=== PATIENT | female | born 1935 | race African-American/Black ===

== ENCOUNTER 2017-01-16 10:14 | Inpatient (IN) ==
[2017-01-16] MEDS ORDERED: NITROGLYCERIN 2% OINT 1 INCH/GM PACK TOP STA (10:39)
[2017-01-16] MEDS ORDERED: ASPIRIN 325 MG TABLET PO STA (10:39)
[2017-01-16] MEDS ORDERED: hydrALAZINE 20 MG/1 ML VIAL IV STA (10:39)
--- NOTE | 2017-01-16 10:43 | EKG Report ---
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
--- NOTE | 2017-01-16 10:51 | Emergency Department Note ---
Arrival - Arrival Chief Complaint: Chest Pain Stated Complaint: Chest pains ED Nursing Triage Note: C/O HAVING CHEST PAIN SINCE LAST EVENING,STATES THE PAIN IS NON-RADIATING., DENIES HAVING SOB., + NAUSEA., Mode of Arrival: Wheelchair Limitations: No Limitations Source: Patient Time Seen by Provider: 01/16/17 10:39 - History of Present Illness HPI Narrative: This 81-year-old black female chronic peritoneal dialysis patient presents with 18 hours of lower mechanical chest wall pain as well as midepigastric pain associated with heartburn, belching, and indigestion. The patient denies any shortness of breath, nausea, vomiting, or diaphoresis. The patient appears lethargic during the interview with most of the history provided by the family. The family states she has never had a stroke but has been in a general decline for the last 2 months with frequent falling and in the last week a significant acceleration in decline with 3 falls in the last week and significant drop off in ambulation and communication. The patient, although ataxic and given the falls, has not complained of any headaches, visual changes , slurring of speech, or focal deficits. Currently the patient appears in no acute medical distress. Onset (ago): hour(s) (Patient presents 18 hours post onset of pain) Allergies/Adverse Reactions: Allergies Allergy/AdvReac Type Severity Reaction Status Date / Time hydrocodone [From Lortab] AdvReac Intermediate Confusion Verified 01/16/17 10:32 codeine AdvReac Nausea Verified 01/16/17 10:32 Home Medications: Home Medications Medication Instructions Recorded Confirmed Type Allopurinol 300 mg PO DAILY 05/03/15 01/16/17 History Aspirin [Adult Low Dose Aspirin EC] 81 mg PO DAILY 05/03/15 01/16/17 History Calcium (Carb)/Vit D 600-400 1 tablet PO DAILY 05/03/15 01/16/17 History [Caltrate 600 + D] Estradiol Tab [Estrace Tab] 1 mg PO MOWEFR 05/03/15 01/16/17 History Pravastatin [Pravachol] 40 mg PO DAILY 05/03/15 01/16/17 History Brimonidine 0.15% Oph Soln 1 drops BOTH EYES BID 05/17/15 01/16/17 History [Alphagan P 0.15% Oph Soln] NIFEdipine XL TAB [Procardia Xl] 90 mg PO BEDTIME #30 tablet 05/23/15 01/16/17 Rx Omeprazole [Omeprazole] 40 mg PO BID 12/30/16 01/16/17 History cloNIDine HCl [Clonidine HCl] 0.5 mg PO BID 12/30/16 01/16/17 History hydrALAZINE TAB [Apresoline Tab] 100 mg PO BID 12/30/16 01/16/17 History Ferrous Fumarate [Ferrimin 150] 456 mg PO DAILY 01/16/17 01/16/17 History Ketorolac Tromethamine [Ketorolac 1 drop LEFT EYE TID 01/16/17 01/16/17 History 0.4% Oph Soln] Review of System - Review of System 12 point system: reviewed and no additional remarkable complaints except as stated - Review of System Constitutional: Present: as per HPI Respiratory: Present: as per HPI Cardiovascular: Present: as per HPI Gastrointestinal: Present: as per HPI Neurological: Present: as per HPI Medical,Surgical,& Family Hx - Medical History Cardio: History of: Hypertension Neurology: History of: Cerebrovascular Accident, Cerebral Palsy HEENT: History of: Glaucoma Endocrine: History of: Diabetes Mellitus (NIDDM) Rheumatology: History of;: Gout Renal: History of: Renal Failure Gastrointestinal: History of: Gastrointestinal Bleed Hematology: No history of: Blood Transfusion Reaction Other: No history of: Anesthesia Reactions - Surgical History Cardiac Surgeries: Sugical HX of: Carotid Endarterectomy HEENT Surgeries: Surgical HX of: Carotid Endarterectomy Abdominal Surgeries: Surgical HX of: Cholecystectomy Reproductive Surgeries: Surgical HX of;: Hysterectomy - Family History Family History: Reports;: Family Heart Disease (in brothers and sisters.), Family Hypertension (multiple family members.), Family Stroke (mother of complications of strokes.) - Social History Smoking Status: Never smoker Frequency of Alcohol Use: None Type of Drug Use: None Exam Physical Examination: GENERAL: Well developed, well nourished elderly black female in no acute distress. HEENT: Normocephalic. No trauma. Moist mucous membranes. EOMI. PERRLA. ENT NML NECK: Supple. No adenopathy. CARDIAC: Regular. 1/4 abdoulaye, loud p2 CHEST: Clear to auscultation. No respiratory distress. O2 sat 100%. Very tender lower sternum to palpation. ABDOMEN: Soft. Very tender mid epigastrium. Active bowel sounds. Peritoneal dialysis catheter access left lower quadrant appears clean and uninflamed EXTREMITIES: No trauma. Normal ROM. No pedal edema. SKIN: No diaphoresis. No rash. NEURO: Alert. Oriented to person and place not so well time. Motor, sensory, vibratory intact. No focal deficits. Vital Signs: Vital Signs Temperature 96.7 F L 01/16/17 10:27 Pulse Rate 70 01/16/17 10:27 Respiratory Rate 16 01/16/17 10:27 Blood Pressure 197/114 01/16/17 10:27 O2 Sat by Pulse Oximetry 100 01/16/17 10:27 Course - Reevaluation(s) Reevaluation #1: Discussed with family the need for further evaluation necessitating hospitalization. - Consultations Consultation #1: Discussed with the hospitalist service who will admit for further evaluation and treatment. Results - Labs CBC & BMP: 01/16/17 11:18 01/16/17 11:18 Labs: I have reviewed the lab and noted the expected findings for renal failure as well as mild hyperkalemia and a bump in troponins. N - Impressions EKG sinus rhythm with occasional PAC at rate of 68. Normal LA interval and QRS duration. Left ventricular hypertrophy noted with nonspecific ST changes without peak T's. No acute injury pattern noted. - Diagnostic Findings Procedure: Chest x-ray: image reviewed by me, report reviewed by me ( Cardiomegaly otherwise negative chest), CT: image reviewed by me, report reviewed by me (Head: Chronic cortical loss left parietal lobe, cerebral atrophy diffuse, no acute injury.) Disposition Clinical Impression: Chest pain/abnormal enzymes, Dialysis dependent renal failure, Reflux, Costochondritis Case discussed with: patient, patient's family Disposition: Still a Patient Condition: Guarded Time of Disposition: 12:24
[2017-01-16] MEDS ORDERED: KETOROLAC 30 MG/1 ML VIAL IV STA (10:55)
[2017-01-16] MEDS ORDERED: methylPREDNISolone SOD SUC 125 MG/2 ML VIAL IV STA (10:55)
[2017-01-16] MEDS ORDERED: METOCLOPRAMIDE 10 MG TABLET PO STA (10:55)
[2017-01-16] MEDS ORDERED: PANTOPRAZOLE 40 MG TABLET PO STA (10:55)
[2017-01-16] MEDS ORDERED: METOCLOPRAMIDE 10 MG TABLET ONE (11:12)
[2017-01-16] MEDS ORDERED: KETOROLAC 30 MG/1 ML VIAL ONE (11:12)
[2017-01-16] MEDS ORDERED: NITROGLYCERIN 2% OINT 1 INCH/GM PACK TOP ONE (11:12)
[2017-01-16] MEDS ORDERED: PANTOPRAZOLE 40 MG TABLET PO ONE (11:12)
[2017-01-16] MEDS ORDERED: hydrALAZINE 20 MG/1 ML VIAL ONE (11:12)
[2017-01-16] MEDS ORDERED: ASPIRIN 325 MG TABLET ONE (11:12)
[2017-01-16] MEDS ORDERED: methylPREDNISolone SOD SUC 125 MG/2 ML VIAL ONE (11:13)
[2017-01-16] MEDS ORDERED: ONDANSETRON 4 MG/2 ML VIAL IV STA (11:29)
--- NOTE | 2017-01-16 11:29 | CT Report ---
History is altered mental status altered LOC and frequent falls Comparison 03/01/2015 There is diffuse atrophy. There is a moderate-sized. Chronic cortical loss in the left parietal lobe. Mild patchy white matter low densities again seen No acute intracranial hemorrhage or mass effects seen No acute cortical stroke identified Impression: Chronic changes similar on the prior study The CT exam was performed using one or more of the following dose reduction techniques: Automated exposure control, adjustment of the mA and/or kV according to patient size, or use of iterative reconstruction technique. PROCEDURE INTERPRETED AT [facility] DEPARTMENT OF RADIOLOGY Final Report Signed by: Dr. Ruth Valencia
[2017-01-16 11:30] LABS: Basophils % 0.2 % (0.0-0.8); Eosinophils # 0.1 10*3/uL (0.0-0.87); Hematocrit 40.9 VOL% (35.7-47.0); Hemoglobin 13.9 GM/DL (12.0-16.0); Immature Granulocytes % 0.3 %; Immature Granulocytes Absolute 0.03 #; Lymphocytes # 2.7 10*3/uL (1.4-4.0); Lymphocytes % 23.8 % (21.3-54.2); Mean Corpuscular Hemoglobin 33 PG (27-34); Mean Corpuscular Volume 98.1 FL (87-102); Mean Platelet Volume 12.3 FL (9.6-12.0); Monocytes # 0.7 10*3/uL (0.11-0.8); Monocytes % 5.7 % (1.7-12.7); NRBC # 0.03 10*3/uL; Neutrophils # 7.9 10*3/uL (1.4-7.4); Platelet Count 217 T/CUMM (130-400); Red Blood Count 4.17 MC/CUMM (3.8-5.5); Red Cell Distribution Width 14.5 % (9.3-17.3); White Blood Count 11.5 T/CUMM (4-12)
[2017-01-16] MEDS ORDERED: ONDANSETRON 4 MG/2 ML VIAL ONE (11:31)
--- NOTE | 2017-01-16 11:32 | XRay Report ---
History is chest pain Comparison 05/16/2015 The heart is mildly enlarged There is mild elevation or eventration left diaphragm. Prior pulmonary edema has resolved in the interval. No congestive failure or confluent infiltrates seen on today's study Impression: Mild cardiomegaly without CHF PROCEDURE INTERPRETED AT [facility] DEPARTMENT OF RADIOLOGY Final Report Signed by: Dr. Ruth Valencia
[2017-01-16 11:50] LABS: Alanine Aminotransferase 32 U/L (13-56); Alkaline Phosphatase 103 U/L (45-117); Aspartate Amino Transferase 48 U/L (0-37); Blood Urea Nitrogen 21 MG/DL (7-18); Calcium 10.1 MG/DL (8.5-10.1); Glucose 160 MG/DL (74-106); Osmolality,Calculated 280.7 MOS/KG (273-304); Potassium 5.7 MMOL/L (3.5-5.1); Sodium 138 MMOL/L (136-145); Total Protein 7.1 G/DL (6.4-8.3); Troponin I Only 0.837 NG/ML (0.00-0.045)
[2017-01-16 12:16] LABS: PT Patient Result 10.2 SECS; Partial Thromboplastin Time 25.9 SECS (0-40)
[2017-01-16 12:27] LABS: Apearance,Urine CLEAR (Clear); Bilirubin,Urine Negative (Negative); Blood, Urine Negative (Negative); Glucose,Urine (UA) Negative (Negative); Ketones,Urine Negative (Negative); Nitrite,Urine Negative (Negative); Protein,Urine 100 MG/DL; RBC,Urine <1 /HPF (0-4); Squamous Epithelial Cell,Urine Occasional /HPF (0-10); Urine Color Straw (Yellow); Urine Specific Gravity 1.005 (1.001-1.035); Urine Urobilinogen < 2.0 EU/DL (0.2-1.0); WBC,Urine 1 /HPF (0-6)
--- NOTE | 2017-01-16 14:07 | Hospitalist History & Physical ---
<Vinh Rahman - Last Filed: 01/16/17 14:48> Assessment and Plan - Time spent with patient Time spent with patient: Greater than 30 minutes (1) Elevated troponin Status: Acute Current Visit: Yes (2) Acute on chronic renal failure Status: Acute Current Visit: No (3) Chest pain Status: Acute Current Visit: No (4) HTN (hypertension) Status: Chronic Current Visit: No (5) Diabetes mellitus Status: Acute Current Visit: Yes History of Present Illness Chief complaint: chest pain History of present illness: Ms. Sommer is a 81 year old Mattie female with a past medical history significant for CVA, hypertension, hyperlipidemia, diabetes mellitus, chronic kidney disease on peritoneal dialysis who presents to the ED today with complaints of chest pain with onset last night. The patient appeared uncomfortable, acutely ill, and moaned in agony. Patient's daughter was at bedside and gave most of the history. Apparently, the patient began experiencing chest pain late last night with associated nausea, vomiting, diarrhea with decreased appetite. When questioning the patient about her pain, she points to her substernal area and notes that the pain has not yet subsided. The patient remains nauseous and is spitting up bile and clear secretions. Patient's daughter notes that the patient recently started complaining of back pain. Patient denies headache, changes in vision, palpitations, syncopal episodes, edema, numbness or tingling. She does however voice chest pain and shortness of breath. Laboratory work on admission is significant for WBCs 11.5 , sodium 138, potassium 5.7, BUN 21, creatinine 5.1. Troponin 0.863. Urinalysis is negative for infection. Case been discussed with both Dr. Antony , ED physician, and Dr. Siddiqui, admitting physician and the patient will be admitted for observation and further treatment. Patient is a full code. Home meds have been reviewed. Home Medications Medication Instructions Recorded Confirmed Type Allopurinol 300 mg PO DAILY 05/03/15 01/16/17 History Aspirin [Adult Low Dose Aspirin EC] 81 mg PO DAILY 05/03/15 01/16/17 History Calcium (Carb)/Vit D 600-400 1 tablet PO DAILY 05/03/15 01/16/17 History [Caltrate 600 + D] Estradiol Tab [Estrace Tab] 1 mg PO MOWEFR 05/03/15 01/16/17 History Pravastatin [Pravachol] 40 mg PO DAILY 05/03/15 01/16/17 History Brimonidine 0.15% Oph Soln 1 drops BOTH EYES BID 05/17/15 01/16/17 History [Alphagan P 0.15% Oph Soln] NIFEdipine XL TAB [Procardia Xl] 90 mg PO BEDTIME #30 tablet 05/23/15 01/16/17 Rx Omeprazole [Omeprazole] 40 mg PO BID 12/30/16 01/16/17 History cloNIDine HCl [Clonidine HCl] 0.5 mg PO BID 12/30/16 01/16/17 History hydrALAZINE TAB [Apresoline Tab] 100 mg PO BID 12/30/16 01/16/17 History Ferrous Fumarate [Ferrimin 150] 456 mg PO DAILY 01/16/17 01/16/17 History Ketorolac Tromethamine [Ketorolac 1 drop LEFT EYE TID 01/16/17 01/16/17 History 0.4% Oph Soln] Prorenal D 1 tablet PO DAILY 01/16/17 01/16/17 History Allergies Allergy/AdvReac Type Severity Reaction Status Date / Time hydrocodone [From Lortab] AdvReac Intermediate Confusion Verified 01/16/17 10:32 codeine AdvReac Nausea Verified 01/16/17 10:32 Medical,Surgical,& Family Hx - Medical History Cardio: History of: Hypertension Neurology: History of: Cerebrovascular Accident, Cerebral Palsy HEENT: History of: Glaucoma Endocrine: History of: Diabetes Mellitus (NIDDM) Rheumatology: History of;: Gout Renal: History of: Renal Failure Gastrointestinal: History of: Gastrointestinal Bleed Hematology: No history of: Blood Transfusion Reaction Other: No history of: Anesthesia Reactions - Surgical History Cardiac Surgeries: Sugical HX of: Carotid Endarterectomy HEENT Surgeries: Surgical HX of: Carotid Endarterectomy Abdominal Surgeries: Surgical HX of: Cholecystectomy Reproductive Surgeries: Surgical HX of;: Hysterectomy - Family History Family History: Reports;: Family Heart Disease (in brothers and sisters.), Family Hypertension (multiple family members.), Family Stroke (mother of complications of strokes.) - Social History Smoking Status: Never smoker Frequency of Alcohol Use: None Type of Drug Use: None Marital Status: Lives With:: Spouse Functional capacity: uses cane/walker - Constitutional Constitutional: Present: weakness. Absent: chills, frequent falls, headache(s) - EENT Eyes: Present: loss of vision. Absent: blurry vision Ears: Absent: decreased hearing, ear pain Nose, mouth and throat: Absent: headache(s), sore throat, vertigo - Cardiovascular Cardiovascular: Present: chest pain at rest, dyspnea. Absent: diaphoresis, edema - Respiratory Respiratory: Present: dyspnea. Absent: cough - Gastrointestinal Gastrointestinal: Present: abdominal pain, nausea, vomiting. Absent: change in bowel habits - Genitourinary Genitourinary: Absent: difficulty urinating, dysuria, hematuria - Musculoskeletal Musculoskeletal: Present: back pain, muscle weakness - Neurological Neurological: Absent: confusion, numbness, syncope - Psychiatric Psychiatric: Absent: anxiety, depression - Endocrine Endocrine: Absent: cold intolerance, heat intolerance - Hematologic/Lymphatic Hematologic/Lymphatic: Absent: easy bleeding, easy bruising Exam - Constitutional Vitals: Period Temp Pulse Resp BP Sys/Sung Pulse Ox Last 24 Hr 96.7 F-96.7 F 55-70 16-20 163-207/83-114 100-100 Exam: General appearance: normal weight, ill-appearing, moderate distress - Head Head exam: Present: normocephalic, atraumatic - Eye Eye exam: Present: EOMI. Absent: conjunctival injection, nystagmus Pupils: Present: RAY, normal accommodation - ENT ENT exam: Present: normal exam, normal external ear exam - Neck Neck exam: Present: normal inspection. Absent: lymphadenopathy, tenderness, thyromegaly - Respiratory Respiratory exam: Present: clear to auscultation bilaterally. Absent: rales, rhonchi, wheezes - Cardiovascular Cardiovascular exam: Present: regular rate and rhythm. Absent: carotid bruit, gallop, rubs - GI/Abdominal GI/Abdominal exam: Present: normal bowel sounds. Absent: ascites, distended, mass - Extremities Exam Extremities exam: Present: normal inspection, normal capillary refill. Absent: edema - Back Exam Back exam: Absent: CVA tenderness (L), CVA tenderness (R) - Neurological Exam Neurological exam: Present: alert, cranial nerves II through XII intact - Psychiatric Psychiatric exam: present: normal affect, normal mood - Skin Skin exam: Present: normal color, warm, dry Results - Labs CBC & BMP: 01/16/17 11:18 01/16/17 11:18 Lab Results: I have reviewed the past 24 hour labs - Diagnostic Findings Procedure: Chest x-ray: image reviewed by me, report reviewed by me <Tawnya Siddiqui - Last Filed: 01/16/17 15:57> History of Present Illness Chief complaint: chest pain started last night History of present illness: Ms. Sommer is a 81 year old female with a history of ESRD on PD, stroke, and GERD who presented to the hospital with a chief complaint of chest pain that started last night. She did not tell anyone in her family that this was going on. This morning she said the chest pain woke her from sleep and she notified her at approximately 7 AM. She describes the pain is midsternal chest pain moderate to severe in nature without any radiation. It was not associated with shortness of breath that was associated with 3-4 episodes of nausea and vomiting. She denied any palpitations, diaphoresis, lightheadedness or dizziness. She reported that the chest pain did get worse with taking a deep breath and is reproducible on exam. Patient states that lying on her back makes the pain better. Patient took Prilosec this morning and she did not notice any improvement in her pain. brought her to the emergency room for further evaluation and treatment. Patient states that after receiving the nitro paste her symptoms have resolved. According to the daughter, patient has had increasing falls and progressive weakness over the last 3 months but she has noticed over the last 3 weeks it is gotten worse. She has had multiple falls. Reportedly she also had some low potassium this week and they notified her primary care doctor who recommended 3 days of oral supplementation. On review of systems, she has chronic constipation but has had loose stools recently. No recent antibiotics. She is recently been started on MiraLAX. A 10 point review of systems was reviewed and was otherwise unremarkable. Past medical history: Eczema, end-stage renal disease on peritoneal dialysis, GERD, constipation, diabetes mellitus, hypertension, stroke, allergic rhinitis, dyslipidemia Past surgical history: Right CEA, cholecystectomy, total abdominal hysterectomy with bilateral salpingo-oophorectomy Meds: Reviewed Allergies: Codeine and Lortab causes confusion and nausea Family history: Brother had prostate cancer, sister had colon cancer, diabetes also runs in the family Social history: Denies any tobacco, alcohol, illicit drug use. She is . Full code. She has [facility]. Vitals were reviewed. General :patient is awake alert and oriented to person lying in the hospital bed in no acute distress. She is chronically ill-appearing HEENT: Pupils are equal and reactive to light. extraocular muscles are intact. Conjunctive are pale. Mucous membranes are slightly dry. Nares are patent no discharge or epistaxis noted. Oropharynx shows white coating on the tongue that does not scrape. Neck: supple. No lymphadenopathy or thyromegaly appreciated. No JVD. Cardiac: Regular rate and rhythm normal S1-S2 with a 1/6 systolic murmur heard best along right sternal border. No rubs or gallop. Chest wall: Tender to palpation. No overlying rashes or ecchymoses Lungs: Clear to auscultation bilaterally with good aeration nonlabored breathing noted Abdomen: Soft nontender nondistended positive bowel sounds no organomegaly or masses appreciated. Peritoneal catheter noted Extremities: Warm and well-perfused. No clubbing cyanosis or edema. Labs and investigative studies were reviewed. Assessment and plan: #1. Atypical chest pain with elevated troponin and risk factors for possible coronary artery disease -Could be due to slow renal clearance of troponin in the face of recent falls or could be ACS. -We will place on the chest pain pathway for observation -Cardiac telemetry -Serial cardiac markers -TSH -Lipid panel -Echo -Consult cardiology #2. Oral candidiasis -Nystatin orally for at least 7-10 days #3. End-stage renal disease on peritoneal dialysis with peritoneal and hyperkalemia -Consult nephrology. Kayexalate 15g po x 1 now #4. Essential hypertension -Resume home meds that are clinically appropriate #5. Diabetes mellitus type 2 diet-controlled -Check hemoglobin A1c. Insulin sliding scale with Accu-Cheks before meals and at bedtime. Start her renal diabetic diet full liquid and advance as tolerated. #6. Nausea and vomiting may be related to ACS but could be related to gastroenteritis -Check KUB -Check lipase -Antiemetics as needed #7. history of stroke -Resume home meds DVT prophylaxis Discussed with patient, , daughter, PA, and nurse and all questions answered. Exam - Constitutional Vitals: Period Temp Pulse Resp BP Sys/Sung Pulse Ox Last 24 Hr 96.7 F-96.8 F 55-70 16-20 151-207/83-114 99-100 Results - Labs CBC & BMP: 01/16/17 11:18 01/16/17 11:18
[2017-01-16] MEDS ORDERED: GLUCAGON 1 MG VIAL IM PRN (15:42)
[2017-01-16] MEDS ORDERED: DEXTROSE 50% 25 GM/50 ML VIAL IV PRN (15:42)
[2017-01-16] MEDS ORDERED: POTASSIUM CHLORIDE 20 MEQ TABLET PO PRN (15:49)
[2017-01-16] MEDS ORDERED: ONDANSETRON 4 MG/2 ML VIAL IV PRN (15:49)
[2017-01-16] MEDS ORDERED: MAGNESIUM SULF RIDER 2 GM in PREMIX 1 EACH IV PRN (15:49)
[2017-01-16] MEDS ORDERED: MAGNESIUM HYDROXIDE SUSP 30 ML UDCUP PO PRN (15:49)
[2017-01-16] MEDS ORDERED: ZALEPLON 5 MG CAPSULE PO PRN (15:49)
[2017-01-16] MEDS ORDERED: SODIUM POLYSTYRENE SULFATE 15 GM/60 ML BOTTLE PO STA (15:56)
--- NOTE | 2017-01-16 16:23 | Nephrology Consult Note ---
History of Present Illness Chief complaint: Chest pain in a patient with end-stage renal disease History of present illness: Ms. Sommer is a 81 year old female with end-stage renal disease who performs peritoneal dialysis at home with a cycler. The patient was admitted to the hospital day when she presented with chest pain to the emergency room. The patient has also been having some weakness and decreased p.o. intake the past couple weeks per the patient's daughter and . The patient is unable to contribute much to the history due to her present medical illness. The patient is also been having diarrhea the past 24 hours and complains of some abdominal upset. The patient has fallen on 3 occasions in the past week or 2 per the daughter. The patient's states that the patient's PD fluid has been clear, he has not noted any cloudy fluid. He reports compliance with performing her peritoneal dialysis at home. He has been using 1.5% dextrose solutions. The patient has a history of diabetes however since starting dialysis she has not required any hypoglycemic therapy. The patient also has a history of hypertension and a few months ago was started on clonidine which was added to hydralazine and nifedipine that she is already taking. The patient has a history of bradycardia but apparently this improved when she was started on dialysis about a year and a half ago. ROS: Head - denies headaches ENT - denies sore throat Lymphatics - denies lymphadenopathy Hematology - denies bleeding problems Heart -positive chest pain Lungs - denies shortness of breath Abdomen -complains of stomach upset Musculoskeletal - denies arthritis Skin - denies rash Neurology - denies stroke General - denies fever PE: General: Chronically ill-appearing Eyes: Pupils are round and reactive, conjunctivae are clear ENT: Nose is clear, O/P is benign Neck: Supple, no thyromegaly Lymphatics: No cervical, supraclavicular or axillary adenopathy Heart: Regular rate and rhythm, no edema Lungs: Clear to auscultation anteriorly, chest expansion symmetric Abdomen: Soft, normoactive bowel sounds, no hepatomegaly, some mild tenderness to deep palpation Musculoskeletal: No joint erythema or effusions or joint asymmetry Skin: Normal turgor, normal hydration, no rash Neuro/Psych: Patient is drowsy but cooperative with poor insight, she was able to answer some review of system questions however was unable to expand much on her history of present illness due to her poor condition and overall weakness. Home Medications Medication Instructions Recorded Confirmed Type Allopurinol 300 mg PO DAILY 05/03/15 01/16/17 History Aspirin [Adult Low Dose Aspirin EC] 81 mg PO DAILY 05/03/15 01/16/17 History Calcium (Carb)/Vit D 600-400 1 tablet PO DAILY 05/03/15 01/16/17 History [Caltrate 600 + D] Estradiol Tab [Estrace Tab] 1 mg PO MOWEFR 05/03/15 01/16/17 History Pravastatin [Pravachol] 40 mg PO DAILY 05/03/15 01/16/17 History Brimonidine 0.15% Oph Soln 1 drops BOTH EYES BID 05/17/15 01/16/17 History [Alphagan P 0.15% Oph Soln] NIFEdipine XL TAB [Procardia Xl] 90 mg PO BEDTIME #30 tablet 05/23/15 01/16/17 Rx Omeprazole [Omeprazole] 40 mg PO BID 12/30/16 01/16/17 History cloNIDine HCl [Clonidine HCl] 0.5 mg PO BID 12/30/16 01/16/17 History hydrALAZINE TAB [Apresoline Tab] 100 mg PO BID 12/30/16 01/16/17 History Ferrous Fumarate [Ferrimin 150] 456 mg PO DAILY 01/16/17 01/16/17 History Ketorolac Tromethamine [Ketorolac 1 drop LEFT EYE TID 01/16/17 01/16/17 History 0.4% Oph Soln] Prorenal D 1 tablet PO DAILY 01/16/17 01/16/17 History Allergies Allergy/AdvReac Type Severity Reaction Status Date / Time hydrocodone [From Lortab] AdvReac Intermediate Confusion Verified 01/16/17 10:32 codeine AdvReac Nausea Verified 01/16/17 10:32 Medical,Surgical,& Family Hx - Medical History Cardio: History of: Cardiac Dysrhythmia, Hypertension Psychological: History of: Anxiety Disorders, Depression (refused lexapro) Neurology: History of: Cerebrovascular Accident, Cerebral Palsy HEENT: History of: Glaucoma Comment Only: Eye Problem (left eye surgery x 3 in mag[place]iel) Endocrine: History of: Diabetes Mellitus (NIDDM), Dyslipidemia Rheumatology: History of;: Gout Renal: History of: Dialysis (peritoneal dialysis every night), Renal Failure Gastrointestinal: History of: GERD, Gastrointestinal Bleed Hematology: No history of: Blood Transfusion Reaction Other: No history of: Anesthesia Reactions - Surgical History Cardiac Surgeries: Sugical HX of: Carotid Endarterectomy HEENT Surgeries: Surgical HX of: Carotid Endarterectomy Abdominal Surgeries: Surgical HX of: Appendectomy, Cholecystectomy, Colonoscopy , EGD Reproductive Surgeries: Surgical HX of;: Hysterectomy - Family History Family History: Reports;: Family Heart Disease (in brothers and sisters.), Family Hypertension (multiple family members.), Family Stroke (mother of complications of strokes.) - Social History Smoking Status: Never smoker Frequency of Alcohol Use: None Type of Drug Use: None Exam - Vital Signs Vital signs: Period Temp Pulse Resp BP Sys/Sung Pulse Ox Last 24 Hr 96.7 F-96.8 F 55-70 16-20 151-207/83-114 99-100 Results - Labs CBC & BMP: 01/16/17 11:18 01/16/17 11:18 Assessment and Plan (1) Debility Status: Acute Assessment and plan: This patient has been declining over the past couple of weeks per the patient's daughter. The patient has had about 3 falls in the past few weeks and has had decreasing interaction and mobility. Current Visit: Yes (2) Diarrhea Status: Acute Assessment and plan: Apparently last night the patient was repeatedly asking to get up to the bathroom and was having some loose stools that were dark in color (the patient takes iron at home). She had some abdominal soreness to palpation, I am going to get a PD fluid sample for cell count with differential Gram stain and C&S Current Visit: Yes (3) Diabetes mellitus Status: Acute Assessment and plan: Patient has not been requiring hypoglycemic therapy since starting dialysis he year and half ago Current Visit: Yes (4) Chest pain Status: Acute Current Visit: No (5) Hyperkalemia Status: Acute Assessment and plan: We will monitor Current Visit: No (6) Metabolic acidosis Status: Acute Current Visit: No (7) ESRD (end stage renal disease) Status: Chronic Assessment and plan: We will perform manual exchanges with 1.5% dextrose solutions 4 times a day Current Visit: No (8) HTN (hypertension) Status: Chronic Current Visit: No (9) Bradycardia Status: Resolved Assessment and plan: Patient has a history of bradycardia on 1 vital sign since admission her heart rate was around 56, the patient was started on a low dose of clonidine a couple months ago, she may do well to come off of this with her decreased interactivity and bradycardia Current Visit: No
--- NOTE | 2017-01-16 16:27 | EKG Report ---
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
[2017-01-16] MEDS: INSULIN LISPRO 100 UNIT/ML SUBCUT SCH ×2 (16:35→21:53)
--- NOTE | 2017-01-16 16:57 | XRay Report ---
History is nausea vomiting Mild air scattered in the large and small bowel without small bowel dilatation or organomegaly seen Clips present in the right upper quadrant. Drain overlies the pelvis Pelvic phleboliths present Impression: Nonspecific bowel gas pattern PROCEDURE INTERPRETED AT [facility] DEPARTMENT OF RADIOLOGY Final Report Signed by: Dr. Ruth Valencia
[2017-01-16] MEDS: NITROGLYCERIN 2% OINT 1 INCH/GM PACK TOP SCH (17:13)
[2017-01-16] MEDS: NYSTATIN 500,000 UNIT/5 ML UDCUP SWISH/SWAL SCH ×2 (17:13→21:53)
[2017-01-16] MEDS ORDERED: NITROGLYCERIN 2% OINT 1 INCH/GM PACK TOP SCH (18:00)
[2017-01-16 18:12] LABS: CKMB % 7.1 %
[2017-01-16 18:14] LABS: Troponin I Only 5.87 NG/ML (0.00-0.045)
[2017-01-16] MEDS ORDERED: ENOXAPARIN 60 MG/0.6 ML SYRINGE SUBCUT ONE (18:41)
[2017-01-16] MEDS ORDERED: ASPIRIN CHEW 81 MG TABLET PO ONE (18:44)
--- NOTE | 2017-01-16 19:40 | Cardiology Consult Note ---
Assessment and Plan - Time spent with patient Time spent with patient: Greater than 30 minutes (1) Myocardial infarction Status: Acute Assessment and plan: The patient is having an LA but her chest pain is fairly minimal. It was not her main reason she came to emergency room. Plan/recommendation: I discussed with the patient's daughter, son-in-law, and the patient's is to the patient that she is having a myocardial infarction, but she is having minimal symptoms However, due to her overall comorbidities make her a poor candidate for invasive evaluation and therapy I recommend we try medical therapy They all agree. They believe she would not be a good candidate for cath, stent , bypass I discussed with him about CODE STATUS. She wants to be full code at least initially. If she is not getting better after code, she would consider withdrawal support Discontinue the clonidine as it probably is aggravated bradycardia Trial of carvedilol 3. 1 2 5 mg p.o. twice daily as this will be evidence- based medications post LA Nitropaste and is now every 6 hours Aspirin 325 mg chewed now and then to every morning or 81 mg every morning Lovenox 60 mg subcu now then 30 mg subcu 24 hrs Cardiac isoenzymes every 6 hours 4 Depending on her LVEF and depending on what nephrology says, she might be a candidate for an JACKIE inhibitor for both her hypertension and without aggravating bradycardia and post LA--if it would not significantly worsen her end-stage renal disease. It may be she is at the point where it does not matter from a renal standpoint. Echo/Doppler-evaluate MR murmur, LVEF post LA Check fasting profile. Treat per guidelines Continue the [facility] for her hypertension Thank you for allowing me to participate in this patient's care Current Visit: Yes (2) Debility Status: Acute Current Visit: Yes (3) Diabetes mellitus Status: Acute Current Visit: Yes (4) Diarrhea Status: Acute Current Visit: Yes (5) Elevated troponin Status: Acute Current Visit: Yes (6) Advanced age Status: Acute Current Visit: No (7) Cardiomegaly Status: Acute Current Visit: No (8) Chest pain Status: Acute Current Visit: No (9) ESRD (end stage renal disease) Status: Chronic Current Visit: No (10) End stage renal disease with hypertension Status: Chronic Current Visit: No (11) HTN (hypertension) Status: Chronic Current Visit: No (12) Bradycardia Status: Resolved Current Visit: No History of Present Illness - Data of Consult Patient: known to practice within the last 3 years Consult date: 01/16/17 Requesting Physician: Tawnya Siddiqui Primary care physician: Sid Abreu - Consult Narrative Reason for consult: Evaluate chest pain, positive cardiac isoenzymes History of present illness: Ms. Sommer is a 81 year old female PCP:? [facility] Supervisor: Dr. Choco Abreu Zoo Caretaker: Dr. Nolasco Ms. Sommer is a 81 years old. She has been followed by Dr. Choco Abreu. She presents with some midline chest pain. Nothing brought it on. Nothing made it better. She actually came because she was is not feeling well. She is in sinus bradycardia. Had frequent PVCs. She is admitted. Her initial enzymes were positive but she came in to be seen, I believe, because she has had diarrhea for last few days. She is fallen by 3 times the last month or so She is not very responsive/interactive. Currently no orthopnea, PND, edema, palpitations, syncope, cough wheezing or phlegm. Past medical Diabetes ? Some dementia End-stage renal disease-on peritoneal dialysis Hypertension Is on allopurinol-? Has gout She is debilitated Social --does not smoke cigarettes. Does not drink alcohol. Family: Remarkable for some coronary disease. CC: Tawnya Siddiqui MD - Home Medications and Allergies Home Medications: Home Medications Medication Instructions Recorded Confirmed Type Allopurinol 300 mg PO DAILY 05/03/15 01/16/17 History Aspirin [Adult Low Dose Aspirin EC] 81 mg PO DAILY 05/03/15 01/16/17 History Calcium (Carb)/Vit D 600-400 1 tablet PO DAILY 05/03/15 01/16/17 History [Caltrate 600 + D] Estradiol Tab [Estrace Tab] 1 mg PO MOWEFR 05/03/15 01/16/17 History Pravastatin [Pravachol] 40 mg PO DAILY 05/03/15 01/16/17 History Brimonidine 0.15% Oph Soln 1 drops BOTH EYES BID 05/17/15 01/16/17 History [Alphagan P 0.15% Oph Soln] NIFEdipine XL TAB [Procardia Xl] 90 mg PO BEDTIME #30 tablet 05/23/15 01/16/17 Rx Omeprazole [Omeprazole] 40 mg PO BID 12/30/16 01/16/17 History cloNIDine HCl [Clonidine HCl] 0.5 mg PO BID 12/30/16 01/16/17 History hydrALAZINE TAB [Apresoline Tab] 100 mg PO BID 12/30/16 01/16/17 History Ferrous Fumarate [Ferrimin 150] 456 mg PO DAILY 01/16/17 01/16/17 History Ketorolac Tromethamine [Ketorolac 1 drop LEFT EYE TID 01/16/17 01/16/17 History 0.4% Oph Soln] Prorenal D 1 tablet PO DAILY 01/16/17 01/16/17 History Allergies/Adverse Reactions: Allergies Allergy/AdvReac Type Severity Reaction Status Date / Time hydrocodone [From Lortab] AdvReac Intermediate Confusion Verified 01/16/17 10:32 codeine AdvReac Nausea Verified 01/16/17 10:32 12 point system: reviewed and no additional remarkable complaints except as stated (A 12 point review of systems is negative except for as mentioned in HPI) Medical,Surgical,& Family Hx - Medical History Cardio: History of: Cardiac Dysrhythmia, Hypertension Psychological: History of: Anxiety Disorders, Depression (refused lexapro) Neurology: History of: Cerebrovascular Accident, Cerebral Palsy HEENT: History of: Glaucoma Comment Only: Eye Problem (left eye surgery x 3 in [place]) Endocrine: History of: Diabetes Mellitus (NIDDM), Dyslipidemia Rheumatology: History of;: Gout Renal: History of: Dialysis (peritoneal dialysis every night), Renal Failure Gastrointestinal: History of: GERD, Gastrointestinal Bleed Hematology: No history of: Blood Transfusion Reaction Other: No history of: Anesthesia Reactions - Surgical History Cardiac Surgeries: Sugical HX of: Carotid Endarterectomy HEENT Surgeries: Surgical HX of: Carotid Endarterectomy Abdominal Surgeries: Surgical HX of: Appendectomy, Cholecystectomy, Colonoscopy , EGD Reproductive Surgeries: Surgical HX of;: Hysterectomy - Family History Family History: Reports;: Family Heart Disease (in brothers and sisters.), Family Hypertension (multiple family members.), Family Stroke (mother of complications of strokes.) - Social History Smoking Status: Never smoker Frequency of Alcohol Use: None Type of Drug Use: None Physical Examination Vital Signs Temp Pulse Resp BP Pulse Ox 96.7 F L 70 16 197/114 100 01/16/17 10:27 01/16/17 10:27 01/16/17 10:27 01/16/17 10:27 01/16/17 10:27 Other: HEENT: Pupils equal, reactive to light and accommodation Neck: NoJVD or bruit Lungs clear to auscultation Heart: Regular rhythm rate with normal S1 and S2. Apical S4, 2/6 holosystolic murmur along the left lower sternal border at the apex to the axilla. Abdomen: No hepatosplenomegaly Spine/extremities: No clubbing, cyanosis, or edema Femoral pulses are 3+. Foot pulses are 1-2+. Neuro: Nonfocal; is very interactive. She seems to have some dementia or at least some cognitive impairment Psych: No depression or anxiety Result/EKG - Labs CBC & BMP: 01/16/17 11:18 01/16/17 11:18 Lab Results: I have reviewed the past 24 hour labs Labs: Laboratory Results - last 24 hr 01/16/17 01/16/17 01/16/17 11:18 11:18 11:18 WBC RBC Hgb Hct MCV MCH MCHC RDW Plt Count MPV Neut % (Auto) Lymph % (Auto) [place] % (Auto) Eos % (Auto) Baso % (Auto) Neut # (Auto) Lymph # (Auto) [place] # (Auto) Eos # (Auto) Baso # (Auto) Immature Gran % Nucleated RBC % Immature Gran # Nucleated RBCs # INR 1.0 PT Patient/Control Mix 10.2 Circ Anticoag PTT 25.9 Sodium 138 Potassium 5.7 H Chloride 106 Carbon Dioxide 20 L Anion Gap 17.7 H BUN 21 H Creatinine 5.10 H GFR Calculation 8 BUN/Creatinine Ratio 4.00 L Glucose 160 H POC Glucose Calculated Osmolality 280.7 Calcium 10.1 Total Bilirubin 0.50 AST 48 H ALT 32 Alkaline Phosphatase 103 Total Creatine Kinase 143 CK-MB (CK-2) 3.1 CK and CKMB Interp Troponin I 0.837 H B-Natriuretic Peptide 150 H Total Protein 7.1 Albumin 3.0 L Globulin 4.1 H Albumin/Globulin Ratio 0.7 L Amylase Lipase Urine Color Urine Appearance Urine pH Ur Specific Guy Urine Protein Urine Glucose (UA) Urine Ketones Urine Blood Urine Nitrate Urine Bilirubin Urine Urobilinogen Urine Leukocytes Urine RBC Urine WBC Ur Squamous Epith Cells Ur Culture Indicated? 0601/16/17 01/16/17 11:18 11:18 12:15 WBC 11.5 RBC 4.17 Hgb 13.9 Hct 40.9 MCV 98.1 MCH 33 MCHC 34.0 RDW 14.5 Plt Count 217 MPV 12.3 H Neut % (Auto) 69.0 Lymph % (Auto) 23.8 [place] % (Auto) 5.7 Eos % (Auto) 1.0 Baso % (Auto) 0.2 Neut # (Auto) 7.9 H Lymph # (Auto) 2.7 [place] # (Auto) 0.7 Eos # (Auto) 0.1 Baso # (Auto) 0.0 Immature Gran % 0.3 Nucleated RBC % 0.3 Immature Gran # 0.03 Nucleated RBCs # 0.03 INR PT Patient/Control Mix Circ Anticoag PTT Sodium Potassium Chloride Carbon Dioxide Anion Gap BUN Creatinine GFR Calculation BUN/Creatinine Ratio Glucose POC Glucose Calculated Osmolality Calcium Total Bilirubin AST ALT Alkaline Phosphatase Total Creatine Kinase CK-MB (CK-2) CK and CKMB Interp Troponin I 0.863 H B-Natriuretic Peptide Total Protein Albumin Globulin Albumin/Globulin Ratio Amylase Lipase Urine Color Straw Urine Appearance Clear Urine pH 9.0 H Ur Specific Guy 1.005 Urine Protein 100 Urine Glucose (UA) Negative Urine Ketones Negative Urine Blood Negative Urine Nitrate Negative Urine Bilirubin Negative Urine Urobilinogen < 2.0 H Urine Leukocytes Negative Urine RBC <1 Urine WBC 1 Ur Squamous Epith Cells Occasional Ur Culture Indicated? Not indicated 01/16/17 01/16/17 01/16/17 16:16 16:22 16:55 WBC RBC Hgb Hct MCV MCH MCHC RDW Plt Count MPV Neut % (Auto) Lymph % (Auto) [place] % (Auto) Eos % (Auto) Baso % (Auto) Neut # (Auto) Lymph # (Auto) [place] # (Auto) Eos # (Auto) Baso # (Auto) Immature Gran % Nucleated RBC % Immature Gran # Nucleated RBCs # INR PT Patient/Control Mix Circ Anticoag PTT Sodium Potassium Chloride Carbon Dioxide Anion Gap BUN Creatinine GFR Calculation BUN/Creatinine Ratio Glucose POC Glucose 190 H Calculated Osmolality Calcium Total Bilirubin AST ALT Alkaline Phosphatase Total Creatine Kinase 231 H D CK-MB (CK-2) 16.3 H D CK and CKMB Interp 7.1 Troponin I 5.870 H D B-Natriuretic Peptide Total Protein Albumin Globulin Albumin/Globulin Ratio Amylase 49 Lipase 124.0 Urine Color Urine Appearance Urine pH Ur Specific Guy Urine Protein Urine Glucose (UA) Urine Ketones Urine Blood Urine Nitrate Urine Bilirubin Urine Urobilinogen Urine Leukocytes Urine RBC Urine WBC Ur Squamous Epith Cells Ur Culture Indicated? - Diagnostic Findings Procedure: Chest x-ray: report reviewed by me - EKG EKG results: interpreted by me
[2017-01-16] MEDS ORDERED: cloNIDine 0.1 MG TABLET PO SCH ×2 (21:00)
[2017-01-16] MEDS: CARVEDILOL 3.125 MG TABLET PO SCH (21:53)
[2017-01-16] MEDS: PANTOPRAZOLE 40 MG TABLET PO SCH (21:53)
[2017-01-16] MEDS: BRIMONIDINE 0.15% OPH SOLN 1 DROP/DROPS BOTTLE BOTH EYES SCH (21:56)
[2017-01-16 21:57] LABS: CKMB % 6.9 %
[2017-01-16 22:04] LABS: Troponin I Only 7.4 NG/ML (0.00-0.045)
[2017-01-17] MEDS: NITROGLYCERIN 2% OINT 1 INCH/GM PACK TOP SCH ×4 (01:44→17:53)
[2017-01-17 04:01] LABS: Basophils % 0.1 % (0.0-0.8); Hematocrit 36.5 VOL% (35.7-47.0); Hemoglobin 12.3 GM/DL (12.0-16.0); Immature Granulocytes % 0.4 %; Immature Granulocytes Absolute 0.07 #; Lymphocytes # 1.1 10*3/uL (1.4-4.0); Lymphocytes % 6.5 % (21.3-54.2); Mean Corpuscular HGB Conc 33.7 GM/DL (32-36); Mean Corpuscular Hemoglobin 33 PG (27-34); Mean Corpuscular Volume 96.8 FL (87-102); Monocytes # 0.7 10*3/uL (0.11-0.8); NRBC # 0.03 10*3/uL; Neutrophils # 14.8 10*3/uL (1.4-7.4); Platelet Count 213 T/CUMM (130-400); Red Blood Count 3.77 MC/CUMM (3.8-5.5); Red Cell Distribution Width 14.5 % (9.3-17.3); White Blood Count 16.6 T/CUMM (4-12)
[2017-01-17 04:24] LABS: Risk Ratio 2.96; VLDL CHOLESTEROL 19.6 MG/DL
[2017-01-17 04:31] LABS: Albumin 2.7 G/DL (3.4-5.0); Bilirubin,Total 0.4 MG/DL (0.2-1.0); Calcium 9.5 MG/DL (8.5-10.1); Magnesium 1.8 MG/DL (1.8-2.4); Osmolality,Calculated 280.5 MOS/KG (273-304); Phosphorous 2.6 MG/DL (2.5-4.9); Thyroid Stimulating Hormone 3.17 uIU/ml (0.358-3.74); Total Protein 6.6 G/DL (6.4-8.3)
[2017-01-17 04:47] LABS: Potassium 6.1 MMOL/L (3.5-5.1)
--- NOTE | 2017-01-17 07:58 | EKG Report ---
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
[2017-01-17] MEDS ORDERED: SODIUM POLYSTYRENE SULFATE 15 GM/60 ML BOTTLE PO ONE (09:25)
[2017-01-17] MEDS: INSULIN LISPRO 100 UNIT/ML SUBCUT SCH ×4 (09:39→20:33)
[2017-01-17] MEDS: NYSTATIN 500,000 UNIT/5 ML UDCUP SWISH/SWAL SCH ×4 (10:15→20:32)
[2017-01-17] MEDS: PRAVASTATIN 40 MG TABLET PO SCH (10:16)
[2017-01-17] MEDS: MULTIVITAMIN (BEROCCA) TABLET PO SCH (10:16)
[2017-01-17] MEDS: CALCIUM (CARBONATE)/VITAMIN D 600 MG-400 UNIT TABLET PO SCH (10:16)
[2017-01-17] MEDS: CARVEDILOL 3.125 MG TABLET PO SCH (10:16)
[2017-01-17] MEDS: PANTOPRAZOLE 40 MG TABLET PO SCH ×2 (10:16→20:32)
[2017-01-17] MEDS: ASPIRIN EC 81 MG TABLET PO SCH (10:16)
[2017-01-17] MEDS: ALLOPURINOL 300 MG TABLET PO SCH (10:16)
[2017-01-17] MEDS: BRIMONIDINE 0.15% OPH SOLN 1 DROP/DROPS BOTTLE BOTH EYES SCH ×2 (10:18→20:32)
--- NOTE | 2017-01-17 10:47 | Hospitalist Progress Note ---
Assessment and Plan (1) Myocardial infarction Status: Acute Assessment and plan: 1)AMI- troponin about 8 this morning. Symptoms improved. Medical management per cardiology. Discussed JACKIE with Dr Nolasco- he feels it would be ok to use an JACKIE since she is on dialysis already. Dr Barker added coreg and decreased lovenox this morning. 2)HTN- on nifedipine, hydralazine, clonidine, at upper end doses with BP still 170s over 100s. cards and nephrology to address. coreg added. 3)DM- adequate control, continue SSI. got a dose of steroids in ER yesterday. 4)hyperkalemia- K is 6.1 despite kayexalate yesterday. repeat kayexalate today and recheck potassium. 5)ESRD- PD exchange done this am may also address hyperkalemia. Current Visit: Yes (2) HTN (hypertension) Status: Chronic Current Visit: No (3) Hyperkalemia Status: Acute Current Visit: No (4) ESRD (end stage renal disease) Status: Chronic Current Visit: No (5) Diabetes mellitus Status: Acute Current Visit: Yes (6) Diarrhea Status: Acute Current Visit: Yes Hospitalist: Subjective Interval history: Ms Alejo is feeling better today. She denies chest pain. No shortness of breath. She ate "ok". She also denies more diarrhea/nausea/belly pain that she reported to Dr Nolasco yesterday. She understands that she had a mild heart attack and is in agreement with plan for conservative treatment proposed by Dr Best. Exam - Constitutional Vitals: Period Temp Pulse Resp BP Sys/Sung Pulse Ox Last 24 Hr 96.8 F-98.3 F 55-94 12-20 142-207/57-113 94-100 General appearance: normal weight, no acute distress - Head Head exam: Present: normocephalic, atraumatic - Eye Eye exam: Present: EOMI. Absent: scleral icterus - Respiratory Respiratory exam: Present: clear to auscultation bilaterally - Cardiovascular Cardiovascular exam: Present: regular rate and rhythm - GI/Abdominal GI/Abdominal exam: Present: normal bowel sounds, soft. Absent: tenderness - Extremities Exam Extremities exam: Absent: edema - Neurological Exam Neurological exam: Present: alert, oriented X3 Results - Labs CBC & BMP: 01/17/17 02:44 01/17/17 02:45 Lab Results: I have reviewed the past 24 hour labs Specialty Discharge - Follow Up or Referrals
--- NOTE | 2017-01-17 10:52 | Nephrology Progress Note ---
Nephrology - PN: Subj Interval history: Patient is feeling better this morning. She denies any abdominal pain. Review of systems cardiac she denies chest pain, pulmonary she has shortness of breath Physical exam general the patient is chronically ill-appearing, heart is regular rate and rhythm, she has no pitting edema, lungs are clear to auscultation anteriorly, abdomen is soft with positive bowel sounds Assessment/plan 1. End-stage renal disease-we will continue peritoneal dialysis with 1.5% dextrose solutions 2. Weakness-patient's cardiac isoenzymes are indicative of a myocardial infarction cardiology is following and instituting medical management 3. Leukocytosis-this patient's afebrile her PD effluent was unremarkable and she appears improved today from yesterday we will continue to monitor this 4. Hypertension adjustments per cardiology, I agree with stopping her clonidine 5. Hyperkalemia-continue PD, will stop her potassium supplement Patient's case was discussed with Dr. Carmona Exam (PN)-Nephrology - Vital Signs Vital signs: Period Temp Pulse Resp BP Sys/Sung Pulse Ox Last 24 Hr 96.8 F-98.3 F 55-94 12-20 142-207/57-113 94-100 - Lab 01/17/17 02:44 01/17/17 02:45 Most recent lab results Calcium 9.5 MG/DL (8.5-10.1) 01/17/17 02:45 Phosphorus 2.6 MG/DL (2.5-4.9) 01/17/17 02:45 Magnesium 1.8 MG/DL (1.8-2.4) 01/17/17 02:45 Assessment and Plan (1) Debility Status: Acute Assessment and plan: This patient has been declining over the past couple of weeks per the patient's daughter. The patient has had about 3 falls in the past few weeks and has had decreasing interaction and mobility. Current Visit: Yes (2) Diarrhea Status: Acute Assessment and plan: Apparently last night the patient was repeatedly asking to get up to the bathroom and was having some loose stools that were dark in color (the patient takes iron at home). She had some abdominal soreness to palpation, I am going to get a PD fluid sample for cell count with differential Gram stain and C&S Current Visit: Yes (3) Diabetes mellitus Status: Acute Assessment and plan: Patient has not been requiring hypoglycemic therapy since starting dialysis he year and half ago Current Visit: Yes (4) Chest pain Status: Acute Current Visit: No (5) Hyperkalemia Status: Acute Assessment and plan: We will monitor Current Visit: No (6) Metabolic acidosis Status: Acute Current Visit: No (7) ESRD (end stage renal disease) Status: Chronic Assessment and plan: We will perform manual exchanges with 1.5% dextrose solutions 4 times a day Current Visit: No (8) HTN (hypertension) Status: Chronic Current Visit: No (9) Bradycardia Status: Resolved Assessment and plan: Patient has a history of bradycardia on 1 vital sign since admission her heart rate was around 56, the patient was started on a low dose of clonidine a couple months ago, she may do well to come off of this with her decreased interactivity and bradycardia Current Visit: No Specialty Discharge - Follow Up or Referrals
--- NOTE | 2017-01-17 11:48 | Cardiology Progress Note ---
<Joanne Martínez E - Last Filed: 01/17/17 11:48> Assessment and Plan - Time spent with patient Time spent with patient: Greater than 30 minutes (1) NSTEMI (non-ST elevated myocardial infarction) Status: Acute Assessment and plan: SEE PLAN OF CARE LISTED BELOW Current Visit: Yes (2) Murmur, cardiac Status: Acute Assessment and plan: SEE PLAN OF CARE LISTED BELOW Current Visit: Yes (3) Risk for falls Status: Chronic Assessment and plan: SEE PLAN OF CARE LISTED BELOW Current Visit: Yes (4) Debility Status: Chronic Assessment and plan: SEE PLAN OF CARE LISTED BELOWSEE PLAN OF CARE LISTED BELOW Current Visit: Yes (5) Diabetes mellitus Status: Chronic Assessment and plan: SEE PLAN OF CARE LISTED BELOW Current Visit: Yes (6) Advanced age Status: Chronic Assessment and plan: SEE PLAN OF CARE LISTED BELOW Current Visit: No (7) Hyperkalemia Status: Acute Assessment and plan: SEE PLAN OF CARE LISTED BELOW Current Visit: No (8) ESRD (end stage renal disease) Status: Chronic Assessment and plan: SEE PLAN OF CARE LISTED BELOW Current Visit: No (9) HTN (hypertension) Status: Chronic Assessment and plan: SEE PLAN OF CARE LISTED BELOW Current Visit: No (10) Hyperlipidemia Status: Chronic Assessment and plan: SEE PLAN OF CARE LISTED BELOW Current Visit: No Cardiology - PN: Subj Interval history: Ms. Sommer is a 81 year old female PCP:? BOX SPINNER: DR. ABREU CO FOUNDER AND DIRECTOR: DR. JEROME SUMMARY: Ms. Sommer, 81BF, has risk factors significant for: Known coronary artery disease, CVA, diabetes, hypertension, dyslipidemia, PVD, sedentary lifestyle. History of anemia, ESRD on peritoneal dialysis. She has been hospitalized since January 16, 2017 when she sought medical advice for chest pain, shortness of breath. Cardiac biomarkers were positive for NSTEMI. Patient and family were counseled regarding diagnosis. At this time, patient and family prefer medical management due to her advanced age and multiple comorbidities. Per Dr. Abreu's clinic note, long-standing history of labile blood pressures thought to be related to her timing of dialysis. JANUARY 17, 2017: This morning, patient tells me she is having no chest pain. She does have intermittent shortness of breath and this may be her angina. This is been occurring over the past week. Feels better with oxygen. Clonidine was discontinued yesterday and in its place. Coreg initiated. During the night, she had uncontrolled hypertension but this morning blood pressure is 142/57. We will continue to monitor and adjust medications accordingly. Echocardiogram is pending. She does have a significant murmur and in review of most recent echo from clinic (2011) there was no significant valvular abnormality. Troponin high is 7.4. Continue ASA, betablocker, Lovenox, Pravastatin. She is currently taking nitropaste. Murmur is suspicious for aortic stenosis. Echocardiogram pending. ASSESSMENT/PLAN: 1. NSTEMI -continue aspirin, Lovenox, beta blockade, lipid-lowering agent. Due to hyperkalemia, avoiding JACKIE inhibitor. Supplemental oxygen. At this time, she does have nitro paste to the chest wall. If she does not have severe , may transition to oral long-acting nitrate. 2. HISTORY OF MODERATE CAD - see above results of February 25, 2012 cardiac catheterization 3. CARDIAC MURMUR - echo pending 4. HYPERTENSION - suboptimally controlled during the night. May have been rebound hypertension as her clonidine was discontinued yesterday. Better controlled this morning. Echocardiogram has been ordered. She may have aortic stenosis. I will not adjust her antihypertensives at this time until results of echo have returned. 5. DYSLIPIDEMIA - LDL 126. Continue Pravastatin 6. ESRD REQUIRING PERITONEAL DIALYSIS - Dr. Gaurav villa 7. DEBILITATED STATE - continue current plan of care 8. HYPERKALEMIA - recently received Kayexalate. BMP, magnesium this afternoon. 9. HIGH FALLS RISK - institute FALL PREVENTION PROTOCOL Exam (Progress Note) - Constitutional Vitals: Period Temp Pulse Resp BP Sys/Sung Pulse Ox Last 24 Hr 96.8 F-98.3 F 55-94 12-20 142-199/57-105 94-100 Exam: General: [Appears well with no apparent distress.] [Pleasant and cooperative. ] [Appears comfortable.] HEENT: [Bilateral arcus noted, normocephalic, atraumatic. Mucous membranes moist. No jaundice noted. Conjunctiva moist and clear, sclerae anicteric] Neck: No obvious JVD/HJR, no thyromegaly or lymphadenopathy noted. Cardiac: [Regular rate and rhythm.] [III/ SHELLEY heard best at BUSB. Lungs: [Clear to auscultation without accessory muscle use to assist the respiratory pattern.] Oxygen in use via nasal cannula Abdomen: Soft, bowel sounds normoactive. Nontender and nondistended. No abdominal bruit or thrill noted. No masses noted. Musculoskeletal: No fluid collection. Decreased range of motion is noted. Extremities: No clubbing, cyanosis noted. [ No edema noted.] Upper extremity pulses 2+. Lower extremity pulses 1+. Capillary refill less than 3 seconds. Skin: No unusual lesions or rashes. No skin breakdown appreciated. Neuro: Awake, alert and oriented 3. Moves all extremities well without hemiparesis or paralysis. No essential tremor is appreciated. Result/EKG - Labs CBC & BMP: 01/17/17 02:44 01/17/17 02:45 Lab Results: I have reviewed the past 24 hour labs Labs: Laboratory Results - last 24 hr 01/16/17 01/16/17 01/16/17 11:18 11:18 11:18 WBC RBC Hgb Hct MCV MCH MCHC RDW Plt Count MPV Neut % (Auto) Lymph % (Auto) Stanton % (Auto) Eos % (Auto) Baso % (Auto) Neut # (Auto) Lymph # (Auto) Stanton # (Auto) Eos # (Auto) Baso # (Auto) Immature Gran % Nucleated RBC % Immature Gran # Nucleated RBCs # INR 1.0 PT Patient/Control Mix 10.2 Circ Anticoag PTT 25.9 Sodium 138 Potassium 5.7 H Chloride 106 Carbon Dioxide 20 L Anion Gap 17.7 H BUN 21 H Creatinine 5.10 H GFR Calculation 8 BUN/Creatinine Ratio 4.00 L Glucose 160 H POC Glucose Hemoglobin A1c Calculated Osmolality 280.7 Calcium 10.1 Phosphorus Magnesium Total Bilirubin 0.50 AST 48 H ALT 32 Alkaline Phosphatase 103 Total Creatine Kinase 143 CK-MB (CK-2) 3.1 CK and CKMB Interp Troponin I 0.837 H B-Natriuretic Peptide 150 H Total Protein 7.1 Albumin 3.0 L Globulin 4.1 H Albumin/Globulin Ratio 0.7 L Triglycerides Cholesterol LDL Cholesterol VLDL Cholesterol HDL Cholesterol Heart Disease Risk Ratio Amylase Lipase Free T4 TSH 3rd Generation Urine Color Urine Appearance Urine pH Ur Specific Burnett Urine Protein Urine Glucose (UA) Urine Ketones Urine Blood Urine Nitrate Urine Bilirubin Urine Urobilinogen Urine Leukocytes Urine RBC Urine WBC Ur Squamous Epith Cells Ur Culture Indicated? Fluid Tot Cell Count Fluid Neutrophils Fluid Band Neutrophils Fluid Lymphocytes Fluid Monocytes Dialysate WBC Dialysate RBC 01/16/17 01/16/17 01/16/17 11:18 12:15 16:16 WBC RBC Hgb Hct MCV MCH MCHC RDW Plt Count MPV Neut % (Auto) Lymph % (Auto) Stanton % (Auto) Eos % (Auto) Baso % (Auto) Neut # (Auto) Lymph # (Auto) Stanton # (Auto) Eos # (Auto) Baso # (Auto) Immature Gran % Nucleated RBC % Immature Gran # Nucleated RBCs # INR PT Patient/Control Mix Circ Anticoag PTT Sodium Potassium Chloride Carbon Dioxide Anion Gap BUN Creatinine GFR Calculation BUN/Creatinine Ratio Glucose POC Glucose Hemoglobin A1c Calculated Osmolality Calcium Phosphorus Magnesium Total Bilirubin AST ALT Alkaline Phosphatase Total Creatine Kinase CK-MB (CK-2) CK and CKMB Interp Troponin I 0.863 H B-Natriuretic Peptide Total Protein Albumin Globulin Albumin/Globulin Ratio Triglycerides Cholesterol LDL Cholesterol VLDL Cholesterol HDL Cholesterol Heart Disease Risk Ratio Amylase 49 Lipase 124.0 Free T4 TSH 3rd Generation Urine Color Straw Urine Appearance Clear Urine pH 9.0 H Ur Specific Burnett 1.005 Urine Protein 100 Urine Glucose (UA) Negative Urine Ketones Negative Urine Blood Negative Urine Nitrate Negative Urine Bilirubin Negative Urine Urobilinogen < 2.0 H Urine Leukocytes Negative Urine RBC <1 Urine WBC 1 Ur Squamous Epith Cells Occasional Ur Culture Indicated? Not indicated Fluid Tot Cell Count Fluid Neutrophils Fluid Band Neutrophils Fluid Lymphocytes Fluid Monocytes Dialysate WBC Dialysate RBC 01/16/17 01/16/17 01/16/17 16:22 16:55 20:51 WBC RBC Hgb Hct MCV MCH MCHC RDW Plt Count MPV Neut % (Auto) Lymph % (Auto) Stanton % (Auto) Eos % (Auto) Baso % (Auto) Neut # (Auto) Lymph # (Auto) Stanton # (Auto) Eos # (Auto) Baso # (Auto) Immature Gran % Nucleated RBC % Immature Gran # Nucleated RBCs # INR PT Patient/Control Mix Circ Anticoag PTT Sodium Potassium Chloride Carbon Dioxide Anion Gap BUN Creatinine GFR Calculation BUN/Creatinine Ratio Glucose POC Glucose 190 H 285 H Hemoglobin A1c Calculated Osmolality Calcium Phosphorus Magnesium Total Bilirubin AST ALT Alkaline Phosphatase Total Creatine Kinase 231 H D CK-MB (CK-2) 16.3 H D CK and CKMB Interp 7.1 Troponin I 5.870 H D B-Natriuretic Peptide Total Protein Albumin Globulin Albumin/Globulin Ratio Triglycerides Cholesterol LDL Cholesterol VLDL Cholesterol HDL Cholesterol Heart Disease Risk Ratio Amylase Lipase Free T4 TSH 3rd Generation Urine Color Urine Appearance Urine pH Ur Specific Burnett Urine Protein Urine Glucose (UA) Urine Ketones Urine Blood Urine Nitrate Urine Bilirubin Urine Urobilinogen Urine Leukocytes Urine RBC Urine WBC Ur Squamous Epith Cells Ur Culture Indicated? Fluid Tot Cell Count Fluid Neutrophils Fluid Band Neutrophils Fluid Lymphocytes Fluid Monocytes Dialysate WBC Dialysate RBC 01/16/17 01/16/17 01/17/17 21:09 23:30 02:44 WBC 16.6 H D RBC 3.77 L Hgb 12.3 Hct 36.5 MCV 96.8 MCH 33 MCHC 33.7 RDW 14.5 Plt Count 213 MPV 13.0 H Neut % (Auto) 89.0 H Lymph % (Auto) 6.5 L Stanton % (Auto) 4.0 Eos % (Auto) 0.0 Baso % (Auto) 0.1 Neut # (Auto) 14.8 H Lymph # (Auto) 1.1 L Stanton # (Auto) 0.7 Eos # (Auto) 0.0 Baso # (Auto) 0.0 Immature Gran % 0.4 Nucleated RBC % 0.2 Immature Gran # 0.07 Nucleated RBCs # 0.03 INR PT Patient/Control Mix Circ Anticoag PTT Sodium Potassium Chloride Carbon Dioxide Anion Gap BUN Creatinine GFR Calculation BUN/Creatinine Ratio Glucose POC Glucose Hemoglobin A1c Calculated Osmolality Calcium Phosphorus Magnesium Total Bilirubin AST ALT Alkaline Phosphatase Total Creatine Kinase 231 H CK-MB (CK-2) 16.0 H CK and CKMB Interp 6.9 Troponin I 7.400 H D B-Natriuretic Peptide Total Protein Albumin Globulin Albumin/Globulin Ratio Triglycerides Cholesterol LDL Cholesterol VLDL Cholesterol HDL Cholesterol Heart Disease Risk Ratio Amylase Lipase Free T4 TSH 3rd Generation Urine Color Urine Appearance Urine pH Ur Specific Burnett Urine Protein Urine Glucose (UA) Urine Ketones Urine Blood Urine Nitrate Urine Bilirubin Urine Urobilinogen Urine Leukocytes Urine RBC Urine WBC Ur Squamous Epith Cells Ur Culture Indicated? Fluid Tot Cell Count 100 Fluid Neutrophils 1 Fluid Band Neutrophils 3 Fluid Lymphocytes 74 Fluid Monocytes 22 Dialysate WBC 26 Dialysate RBC 111 01/17/17 01/17/17 01/17/17 02:45 02:45 02:45 WBC RBC Hgb Hct MCV MCH MCHC RDW Plt Count MPV Neut % (Auto) Lymph % (Auto) Stanton % (Auto) Eos % (Auto) Baso % (Auto) Neut # (Auto) Lymph # (Auto) Stanton # (Auto) Eos # (Auto) Baso # (Auto) Immature Gran % Nucleated RBC % Immature Gran # Nucleated RBCs # INR PT Patient/Control Mix Circ Anticoag PTT Sodium 139 Potassium 6.1 H* Chloride 107 Carbon Dioxide 21 Anion Gap 17.1 H BUN 22 H Creatinine 5.60 H GFR Calculation 7 BUN/Creatinine Ratio 3.00 L Glucose 118 H POC Glucose Hemoglobin A1c 5.7 Calculated Osmolality 280.5 Calcium 9.5 Phosphorus 2.6 Magnesium 1.8 Total Bilirubin 0.40 AST 65 H ALT 35 Alkaline Phosphatase 93 Total Creatine Kinase CK-MB (CK-2) CK and CKMB Interp Troponin I B-Natriuretic Peptide Total Protein 6.6 Albumin 2.7 L Globulin 3.9 H Albumin/Globulin Ratio 0.6 L Triglycerides 98 Cholesterol 207 H LDL Cholesterol 126.0 VLDL Cholesterol 19.6 HDL Cholesterol 70 H Heart Disease Risk Ratio 2.96 Amylase Lipase Free T4 1.00 TSH 3rd Generation 3.170 Urine Color Urine Appearance Urine pH Ur Specific Burnett Urine Protein Urine Glucose (UA) Urine Ketones Urine Blood Urine Nitrate Urine Bilirubin Urine Urobilinogen Urine Leukocytes Urine RBC Urine WBC Ur Squamous Epith Cells Ur Culture Indicated? Fluid Tot Cell Count Fluid Neutrophils Fluid Band Neutrophils Fluid Lymphocytes Fluid Monocytes Dialysate WBC Dialysate RBC 01/17/17 08:07 WBC RBC Hgb Hct MCV MCH MCHC RDW Plt Count MPV Neut % (Auto) Lymph % (Auto) Stanton % (Auto) Eos % (Auto) Baso % (Auto) Neut # (Auto) Lymph # (Auto) Stanton # (Auto) Eos # (Auto) Baso # (Auto) Immature Gran % Nucleated RBC % Immature Gran # Nucleated RBCs # INR PT Patient/Control Mix Circ Anticoag PTT Sodium Potassium Chloride Carbon Dioxide Anion Gap BUN Creatinine GFR Calculation BUN/Creatinine Ratio Glucose POC Glucose 129 H Hemoglobin A1c Calculated Osmolality Calcium Phosphorus Magnesium Total Bilirubin AST ALT Alkaline Phosphatase Total Creatine Kinase CK-MB (CK-2) CK and CKMB Interp Troponin I B-Natriuretic Peptide Total Protein Albumin Globulin Albumin/Globulin Ratio Triglycerides Cholesterol LDL Cholesterol VLDL Cholesterol HDL Cholesterol Heart Disease Risk Ratio Amylase Lipase Free T4 TSH 3rd Generation Urine Color Urine Appearance Urine pH Ur Specific Burnett Urine Protein Urine Glucose (UA) Urine Ketones Urine Blood Urine Nitrate Urine Bilirubin Urine Urobilinogen Urine Leukocytes Urine RBC Urine WBC Ur Squamous Epith Cells Ur Culture Indicated? Fluid Tot Cell Count Fluid Neutrophils Fluid Band Neutrophils Fluid Lymphocytes Fluid Monocytes Dialysate WBC Dialysate RBC - Diagnostic Findings Procedure: Chest x-ray: report reviewed by me - EKG EKG results: interpreted by me EKG shows: sinus rhythm Specialty Discharge - Follow Up or Referrals <Reji Chapman - Last Filed: 01/17/17 18:03> Exam (Progress Note) - Constitutional Vitals: Period Temp Pulse Resp BP Sys/Sung Pulse Ox Last 24 Hr 97.1 F-98.1 F 70-98 12-20 142-199/57-105 94-98 Result/EKG - Labs CBC & BMP: 01/17/17 02:44 01/17/17 14:49 Labs: Laboratory Results - last 24 hr 01/16/17 01/16/17 01/16/17 16:55 20:51 21:09 WBC RBC Hgb Hct MCV MCH MCHC RDW Plt Count MPV Neut % (Auto) Lymph % (Auto) Stanton % (Auto) Eos % (Auto) Baso % (Auto) Neut # (Auto) Lymph # (Auto) Stanton # (Auto) Eos # (Auto) Baso # (Auto) Immature Gran % Nucleated RBC % Immature Gran # Nucleated RBCs # Sodium Potassium Chloride Carbon Dioxide Anion Gap BUN Creatinine GFR Calculation BUN/Creatinine Ratio Glucose POC Glucose 285 H Hemoglobin A1c Calculated Osmolality Calcium Phosphorus Magnesium Total Bilirubin AST ALT Alkaline Phosphatase Total Creatine Kinase 231 H D 231 H CK-MB (CK-2) 16.3 H D 16.0 H CK and CKMB Interp 7.1 6.9 Troponin I 5.870 H D 7.400 H D Total Protein Albumin Globulin Albumin/Globulin Ratio Triglycerides Cholesterol LDL Cholesterol VLDL Cholesterol HDL Cholesterol Heart Disease Risk Ratio Free T4 TSH 3rd Generation Fluid Tot Cell Count Fluid Neutrophils Fluid Band Neutrophils Fluid Lymphocytes Fluid Monocytes Dialysate WBC Dialysate RBC 01/16/17 01/17/17 01/17/17 23:30 02:44 02:45 WBC 16.6 H D RBC 3.77 L Hgb 12.3 Hct 36.5 MCV 96.8 MCH 33 MCHC 33.7 RDW 14.5 Plt Count 213 MPV 13.0 H Neut % (Auto) 89.0 H Lymph % (Auto) 6.5 L Stanton % (Auto) 4.0 Eos % (Auto) 0.0 Baso % (Auto) 0.1 Neut # (Auto) 14.8 H Lymph # (Auto) 1.1 L Stanton # (Auto) 0.7 Eos # (Auto) 0.0 Baso # (Auto) 0.0 Immature Gran % 0.4 Nucleated RBC % 0.2 Immature Gran # 0.07 Nucleated RBCs # 0.03 Sodium 139 Potassium 6.1 H* Chloride 107 Carbon Dioxide 21 Anion Gap 17.1 H BUN 22 H Creatinine 5.60 H GFR Calculation 7 BUN/Creatinine Ratio 3.00 L Glucose 118 H POC Glucose Hemoglobin A1c Calculated Osmolality 280.5 Calcium 9.5 Phosphorus 2.6 Magnesium 1.8 Total Bilirubin 0.40 AST 65 H ALT 35 Alkaline Phosphatase 93 Total Creatine Kinase CK-MB (CK-2) CK and CKMB Interp Troponin I Total Protein 6.6 Albumin 2.7 L Globulin 3.9 H Albumin/Globulin Ratio 0.6 L Triglycerides Cholesterol LDL Cholesterol VLDL Cholesterol HDL Cholesterol Heart Disease Risk Ratio Free T4 1.00 TSH 3rd Generation 3.170 Fluid Tot Cell Count 100 Fluid Neutrophils 1 Fluid Band Neutrophils 3 Fluid Lymphocytes 74 Fluid Monocytes 22 Dialysate WBC 26 Dialysate RBC 111 01/17/17 01/17/17 01/17/17 02:45 02:45 08:07 WBC RBC Hgb Hct MCV MCH MCHC RDW Plt Count MPV Neut % (Auto) Lymph % (Auto) Stanton % (Auto) Eos % (Auto) Baso % (Auto) Neut # (Auto) Lymph # (Auto) Stanton # (Auto) Eos # (Auto) Baso # (Auto) Immature Gran % Nucleated RBC % Immature Gran # Nucleated RBCs # Sodium Potassium Chloride Carbon Dioxide Anion Gap BUN Creatinine GFR Calculation BUN/Creatinine Ratio Glucose POC Glucose 129 H Hemoglobin A1c 5.7 Calculated Osmolality Calcium Phosphorus Magnesium Total Bilirubin AST ALT Alkaline Phosphatase Total Creatine Kinase CK-MB (CK-2) CK and CKMB Interp Troponin I Total Protein Albumin Globulin Albumin/Globulin Ratio Triglycerides 98 Cholesterol 207 H LDL Cholesterol 126.0 VLDL Cholesterol 19.6 HDL Cholesterol 70 H Heart Disease Risk Ratio 2.96 Free T4 TSH 3rd Generation Fluid Tot Cell Count Fluid Neutrophils Fluid Band Neutrophils Fluid Lymphocytes Fluid Monocytes Dialysate WBC Dialysate RBC 01/17/17 01/17/17 01/17/17 12:22 12:52 14:49 WBC RBC Hgb Hct MCV MCH MCHC RDW Plt Count MPV Neut % (Auto) Lymph % (Auto) Stanton % (Auto) Eos % (Auto) Baso % (Auto) Neut # (Auto) Lymph # (Auto) Stanton # (Auto) Eos # (Auto) Baso # (Auto) Immature Gran % Nucleated RBC % Immature Gran # Nucleated RBCs # Sodium 139 Potassium 5.3 H Chloride 106 Carbon Dioxide 19 L Anion Gap 19.3 H BUN 21 H Creatinine 5.70 H GFR Calculation 7 BUN/Creatinine Ratio 3.00 L Glucose 193 H POC Glucose 202 H Hemoglobin A1c Calculated Osmolality 284.5 Calcium 9.2 Phosphorus Magnesium 1.6 L Total Bilirubin AST ALT Alkaline Phosphatase Total Creatine Kinase 217 H CK-MB (CK-2) 15.7 H CK and CKMB Interp 7.2 Troponin I 8.280 H Total Protein Albumin Globulin Albumin/Globulin Ratio Triglycerides Cholesterol LDL Cholesterol VLDL Cholesterol HDL Cholesterol Heart Disease Risk Ratio Free T4 TSH 3rd Generation Fluid Tot Cell Count Fluid Neutrophils Fluid Band Neutrophils Fluid Lymphocytes Fluid Monocytes Dialysate WBC Dialysate RBC 01/17/17 16:35 WBC RBC Hgb Hct MCV MCH MCHC RDW Plt Count MPV Neut % (Auto) Lymph % (Auto) Stanton % (Auto) Eos % (Auto) Baso % (Auto) Neut # (Auto) Lymph # (Auto) Stanton # (Auto) Eos # (Auto) Baso # (Auto) Immature Gran % Nucleated RBC % Immature Gran # Nucleated RBCs # Sodium Potassium Chloride Carbon Dioxide Anion Gap BUN Creatinine GFR Calculation BUN/Creatinine Ratio Glucose POC Glucose 151 H Hemoglobin A1c Calculated Osmolality Calcium Phosphorus Magnesium Total Bilirubin AST ALT Alkaline Phosphatase Total Creatine Kinase CK-MB (CK-2) CK and CKMB Interp Troponin I Total Protein Albumin Globulin Albumin/Globulin Ratio Triglycerides Cholesterol LDL Cholesterol VLDL Cholesterol HDL Cholesterol Heart Disease Risk Ratio Free T4 TSH 3rd Generation Fluid Tot Cell Count Fluid Neutrophils Fluid Band Neutrophils Fluid Lymphocytes Fluid Monocytes Dialysate WBC Dialysate RBC
[2017-01-17 13:41] LABS: CKMB % 7.2 %
[2017-01-17 13:43] LABS: Troponin I Only 8.28 NG/ML (0.00-0.045)
[2017-01-17 15:05] LABS: Calcium 9.2 MG/DL (8.5-10.1)
[2017-01-17 15:06] LABS: Magnesium 1.6 MG/DL (1.8-2.4); Osmolality,Calculated 284.5 MOS/KG (273-304); Potassium 5.3 MMOL/L (3.5-5.1)
[2017-01-17] MEDS: KETOROLAC TROMETHAMINE 0.5% LEFT EYE SCH ×4 (16:43→20:33)
[2017-01-17] MEDS: ESTRADIOL 1 MG TABLET PO SCH (16:49)
[2017-01-17] MEDS: ENOXAPARIN 30 MG/0.3 ML SYRINGE SUBCUT SCH (17:52)
--- NOTE | 2017-01-17 19:17 | ECHO Report ---
Radha Sommer Exam Date: 01/17/2017 14:07 Referring Physician: Technologist: Marybeth Alcocer Age: 81 Ht (in): 61 Wt (lb): 130 Gender: F Exam Location: [facility] Echo Indications: NE, diabetes, chest pain, CHF, CKD, HTN, hyperlipidemia, elevated troponin, hyperkalemia BP: 177 / 105 HR: 80 Rhythm: Sinus Technical Quality: IMPRESSIONS 1-2+ left atrial enlargement 2+ concentric LVH Severely reduced LV systolic function with normal sheryr base but apical dyskinesis and distal anterior and inferior severe hypokinesis; the estimated ejection fraction is 25% Aortic sclerosis without stenosis 1-2+ aortic regurgitation Probable 3+ mitral and tricuspid regurgitation with RVSP 56 mmHg plus RAP suggesting moderate to severe pulmonary hypertension MEASUREMENTS (Male / Female) Normal Values 2D ECHO LV Diastolic Diameter PLAX 4.3 cm 4.2 - 5.9 / 3.9 - 5.3 cm LV Systolic Diameter PLAX 2.8 cm LV Fractional Shortening PLAX 36.6 % IVS Diastolic Thickness 1.7 cm 0.6 - 1.0 / 0.6 - 0.9 cm LVPW Diastolic Thickness 1.2 cm 0.6 - 1.0 / 0.6 - 0.9 cm RV Internal Dim ED PLAX 2.5 cm Aortic Root Diameter 2.9 cm LA Systolic Diameter LX 4.4 cm 3.0 - 4.0 / 2.7 - 3.8 cm DOPPLER TR Peak Velocity 373.0 cm/s TR Peak Gradient 55.7 mmHg FINDINGS Left Ventricle Severely increased septal wall thickness. Mildly increased posterior wall thickness. Hypokinetic apical-septal wall motion. Left ventricular ejection fraction is estimated a Right Ventricle Normal right ventricular size. Right Atrium Normal right atrial size. Left Atrium Moderately increased left atrial diameter. Mitral Valve Mild mitral valve sclerosis. Moderate mitral valve regurgitation. Aortic Valve Mild aortic valve sclerosis. Jgsf-bb-nswyugja aortic valve regurgitation. Tricuspid Valve Morphologically normal tricuspid valve. Kydphpgp-rn-[id number] tricuspid valve regurgitation. Tricuspid regurgitation velocities suggest a PAP of 66 mmHg. Pulmonic Valve Pulmonic valve not well visualized. Trace pulmonary valve regurgitation. Pericardium No pericardial effusion. Aorta Normal size aortic root and proximal ascending aorta. Reji Chapman (Electronically Signed) Final Date: 17 January 2017 19:16
[2017-01-17] MEDS: ISOSORBIDE DINITRATE 20 MG TABLET PO SCH (20:32)
[2017-01-17] MEDS: CARVEDILOL 6.25 MG TABLET PO SCH (20:33)
[2017-01-17 21:48] LABS: Troponin I Only 10.9 NG/ML (0.00-0.045)
[2017-01-18 05:06] LABS: Basophils % 0.2 % (0.0-0.8); Eosinophils # 0.2 10*3/uL (0.0-0.87); Eosinophils % 1.9 % (0.00-10.9); Hematocrit 33.7 VOL% (35.7-47.0); Hemoglobin 11.8 GM/DL (12.0-16.0); Immature Granulocytes % 0.5 %; Immature Granulocytes Absolute 0.05 #; Lymphocytes # 1.3 10*3/uL (1.4-4.0); Lymphocytes % 13.6 % (21.3-54.2); Mean Corpuscular Hemoglobin 33 PG (27-34); Mean Corpuscular Volume 95.5 FL (87-102); Mean Platelet Volume 12.2 FL (9.6-12.0); Monocytes # 0.7 10*3/uL (0.11-0.8); Monocytes % 7.3 % (1.7-12.7); Neutrophils # 7.5 10*3/uL (1.4-7.4); Neutrophils % 76.5 % (38.7-73.9); Platelet Count 167 T/CUMM (130-400); Red Blood Count 3.53 MC/CUMM (3.8-5.5); Red Cell Distribution Width 14.4 % (9.3-17.3); White Blood Count 9.9 T/CUMM (4-12)
[2017-01-18 05:39] LABS: Calcium 8.4 MG/DL (8.5-10.1); Magnesium 1.5 MG/DL (1.8-2.4); Osmolality,Calculated 280.4 MOS/KG (273-304); Potassium 4.1 MMOL/L (3.5-5.1)
[2017-01-18 05:41] LABS: Calcium 8.5 MG/DL (8.5-10.1); Osmolality,Calculated 281.4 MOS/KG (273-304); Potassium 4.2 MMOL/L (3.5-5.1)
[2017-01-18 05:47] LABS: CKMB % 8.8 %
[2017-01-18 05:48] LABS: Troponin I Only 8.65 NG/ML (0.00-0.045)
--- NOTE | 2017-01-18 07:24 | EKG Report ---
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
--- NOTE | 2017-01-18 07:42 | Nephrology Progress Note ---
Nephrology - PN: Subj Interval history: Patient is feeling better. She denies shortness of breath. Review of systems GI she denies nausea or vomiting Physical exam general the patient in no acute distress Assessment/plan 1. End-stage renal disease-we will continue PD unchanged 2. Weakness-this seems to be improved 3. Myocardial infarction management per cardiology 4. Hypertension this is controlled Exam (PN)-Nephrology - Vital Signs Vital signs: Period Temp Pulse Resp BP Sys/Sung Pulse Ox Last 24 Hr 97.0 F-97.8 F 81-98 16-20 122-180/61-101 93-97 - Lab 01/18/17 04:08 01/18/17 04:08 Most recent lab results Calcium 8.5 MG/DL (8.5-10.1) 01/18/17 04:08 Phosphorus 2.6 MG/DL (2.5-4.9) 01/17/17 02:45 Magnesium 1.5 MG/DL (1.8-2.4) L 01/18/17 04:08 Assessment and Plan (1) Debility Status: Chronic Assessment and plan: This patient has been declining over the past couple of weeks per the patient's daughter. The patient has had about 3 falls in the past few weeks and has had decreasing interaction and mobility. Current Visit: Yes (2) Diarrhea Status: Acute Assessment and plan: Apparently last night the patient was repeatedly asking to get up to the bathroom and was having some loose stools that were dark in color (the patient takes iron at home). She had some abdominal soreness to palpation, I am going to get a PD fluid sample for cell count with differential Gram stain and C&S Current Visit: Yes (3) Diabetes mellitus Status: Chronic Assessment and plan: Patient has not been requiring hypoglycemic therapy since starting dialysis he year and half ago Current Visit: Yes (4) Chest pain Status: Acute Current Visit: No (5) Hyperkalemia Status: Acute Assessment and plan: We will monitor Current Visit: No (6) Metabolic acidosis Status: Acute Current Visit: No (7) ESRD (end stage renal disease) Status: Chronic Assessment and plan: We will perform manual exchanges with 1.5% dextrose solutions 4 times a day Current Visit: No (8) HTN (hypertension) Status: Chronic Current Visit: No (9) Bradycardia Status: Resolved Assessment and plan: Patient has a history of bradycardia on 1 vital sign since admission her heart rate was around 56, the patient was started on a low dose of clonidine a couple months ago, she may do well to come off of this with her decreased interactivity and bradycardia Current Visit: No Specialty Discharge - Follow Up or Referrals
[2017-01-18] MEDS: INSULIN LISPRO 100 UNIT/ML SUBCUT SCH ×4 (08:35→21:33)
[2017-01-18] MEDS: CALCIUM (CARBONATE)/VITAMIN D 600 MG-400 UNIT TABLET PO SCH (08:56)
[2017-01-18] MEDS: PRAVASTATIN 40 MG TABLET PO SCH (08:56)
[2017-01-18] MEDS: NYSTATIN 500,000 UNIT/5 ML UDCUP SWISH/SWAL SCH ×4 (08:56→21:31)
[2017-01-18] MEDS: ALLOPURINOL 300 MG TABLET PO SCH (08:56)
[2017-01-18] MEDS: CARVEDILOL 6.25 MG TABLET PO SCH (08:56)
[2017-01-18] MEDS: MULTIVITAMIN (BEROCCA) TABLET PO SCH (08:56)
[2017-01-18] MEDS: BRIMONIDINE 0.15% OPH SOLN 1 DROP/DROPS BOTTLE BOTH EYES SCH ×2 (08:57→21:39)
[2017-01-18] MEDS: ASPIRIN EC 81 MG TABLET PO SCH (08:57)
[2017-01-18] MEDS: ISOSORBIDE DINITRATE 20 MG TABLET PO SCH ×3 (08:57→21:31)
[2017-01-18] MEDS: PANTOPRAZOLE 40 MG TABLET PO SCH ×2 (08:57→21:31)
[2017-01-18] MEDS: KETOROLAC TROMETHAMINE 0.5% LEFT EYE SCH ×3 (08:58→21:37)
--- NOTE | 2017-01-18 11:32 | Cardiology Progress Note ---
<Joanne Martínez E - Last Filed: 01/18/17 11:18> Assessment and Plan (1) NSTEMI (non-ST elevated myocardial infarction) Status: Acute Assessment and plan: SEE PLAN OF CARE LISTED BELOW Current Visit: Yes (2) Murmur, cardiac Status: Chronic Assessment and plan: SEE PLAN OF CARE LISTED BELOW Current Visit: Yes (3) Risk for falls Status: Chronic Assessment and plan: SEE PLAN OF CARE LISTED BELOW Current Visit: Yes (4) Debility Status: Chronic Assessment and plan: SEE PLAN OF CARE LISTED BELOWSEE PLAN OF CARE LISTED BELOW Current Visit: Yes (5) Diabetes mellitus Status: Chronic Assessment and plan: SEE PLAN OF CARE LISTED BELOW Current Visit: Yes (6) Advanced age Status: Chronic Assessment and plan: SEE PLAN OF CARE LISTED BELOW Current Visit: No (7) Hyperkalemia Status: Resolved Assessment and plan: SEE PLAN OF CARE LISTED BELOW Current Visit: No (8) ESRD (end stage renal disease) Status: Chronic Assessment and plan: SEE PLAN OF CARE LISTED BELOW Current Visit: No (9) HTN (hypertension) Status: Chronic Assessment and plan: SEE PLAN OF CARE LISTED BELOW Current Visit: No (10) Hyperlipidemia Status: Chronic Assessment and plan: SEE PLAN OF CARE LISTED BELOW Current Visit: No Cardiology - PN: Subj Interval history: Ms. 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 Sommer, 81BF, has risk factors significant for: Known coronary artery disease, CVA, diabetes, hypertension, dyslipidemia, PVD, sedentary lifestyle. History of anemia, ESRD on peritoneal dialysis. She has been hospitalized since January 16, 2017 when she sought medical advice for chest pain, shortness of breath. Cardiac biomarkers were positive for NSTEMI. Patient and family were counseled regarding diagnosis. At this time, patient and family prefer medical management due to her advanced age and multiple comorbidities. Per Dr. Abreu's clinic note, long-standing history of labile blood pressures thought to be related to her timing of dialysis. JANUARY 17, 2017: This morning, patient tells me she is having no chest pain. She does have intermittent shortness of breath and this may be her angina. This is been occurring over the past week. Feels better with oxygen. Clonidine was discontinued yesterday and in its place. Coreg initiated. During the night, she had uncontrolled hypertension but this morning blood pressure is 142/57. We will continue to monitor and adjust medications accordingly. Echocardiogram is pending. She does have a significant murmur and in review of most recent echo from clinic (2011) there was no significant valvular abnormality. Troponin high is 7.4. Continue ASA, betablocker, Lovenox, Pravastatin. She is currently taking nitropaste. Murmur is suspicious for aortic stenosis. Echocardiogram pending. JANUARY 18, 2017: Troponin peaked at 10.9 and is decreasing. She denies chest pain, heaviness or tightness this morning. At this time, she is undergoing peritoneal dialysis in her room. Blood pressure is better but still suboptimally controlled. I will increase Coreg today. She is on the hydralazine/Imdur combination. Echocardiogram revealed: EF 25%, apical dyskinesis and distal, anterior and inferior severe hypokinesis, moderate mitral regurgitation, RVSP 56mmHg + RAP. Hopefully, she may be ready for transfer or discharge tomorrow. ASSESSMENT/PLAN: 1. NSTEMI - continue Aspirin, Lovenox, beta blockade, lipid-lowering agent. Due to hyperkalemia, avoiding JACKIE inhibitor. Supplemental oxygen. At this time, she does have nitro paste to the chest wall. If she does not have severe , may transition to oral long-acting nitrate. 2. HISTORY OF MODERATE CAD - see above results of February 25, 2012 cardiac catheterization 3. CARDIAC MURMUR - see echo report above. 4. HYPERTENSION - suboptimally controlled during the night. Increasing Coreg and will give additional dose now. 5. DYSLIPIDEMIA - LDL 126. Continue Pravastatin 6. ESRD REQUIRING PERITONEAL DIALYSIS - Dr. Nolasco following 7. DEBILITATED STATE - continue current plan of care. Consulting Case Management as she may benefit from SWB. 8. HYPERKALEMIA - resolved. Continue to follow daily. 9. HIGH FALLS RISK - institute FALL PREVENTION PROTOCOL Exam (Progress Note) - Constitutional Vitals: Period Temp Pulse Resp BP Sys/Sung Pulse Ox Last 24 Hr 97.0 F-97.8 F 81-98 16-20 122-180/61-93 93-96 Exam: General: [Appears well with no apparent distress.] [Pleasant and cooperative. ] [Appears comfortable.] HEENT: [Bilateral arcus noted, normocephalic, atraumatic. Mucous membranes moist. No jaundice noted. Conjunctiva moist and clear, sclerae anicteric] Neck: No obvious JVD/HJR, no thyromegaly or lymphadenopathy noted. Cardiac: [Regular rate and rhythm.] [III/ SHELLEY heard best at BUSB. Lungs: [Clear to auscultation without accessory muscle use to assist the respiratory pattern.] Oxygen in use via nasal cannula Abdomen: Soft, bowel sounds normoactive. Nontender and nondistended. No abdominal bruit or thrill noted. No masses noted. Musculoskeletal: No fluid collection. Decreased range of motion is noted. Extremities: No clubbing, cyanosis noted. [ No edema noted.] Upper extremity pulses 2+. Lower extremity pulses 1+. Capillary refill less than 3 seconds. Skin: No unusual lesions or rashes. No skin breakdown appreciated. Neuro: Awake, alert and oriented 3. Moves all extremities well without hemiparesis or paralysis. No essential tremor is appreciated. Result/EKG - Labs CBC & BMP: 01/18/17 04:08 01/18/17 04:08 Lab Results: I have reviewed the past 24 hour labs Labs: Laboratory Results - last 24 hr 01/17/17 01/17/17 01/17/17 12:22 12:52 14:49 WBC RBC Hgb Hct MCV MCH MCHC RDW Plt Count MPV Neut % (Auto) Lymph % (Auto) Taylor % (Auto) Eos % (Auto) Baso % (Auto) Neut # (Auto) Lymph # (Auto) Taylor # (Auto) Eos # (Auto) Baso # (Auto) Immature Gran % Nucleated RBC % Immature Gran # Nucleated RBCs # Sodium 139 Potassium 5.3 H Chloride 106 Carbon Dioxide 19 L Anion Gap 19.3 H BUN 21 H Creatinine 5.70 H GFR Calculation 7 BUN/Creatinine Ratio 3.00 L Glucose 193 H POC Glucose 202 H Calculated Osmolality 284.5 Calcium 9.2 Magnesium 1.6 L Total Creatine Kinase 217 H CK-MB (CK-2) 15.7 H CK and CKMB Interp 7.2 Troponin I 8.280 H 01/17/17 01/17/17 01/17/17 16:35 19:55 21:03 WBC RBC Hgb Hct MCV MCH MCHC RDW Plt Count MPV Neut % (Auto) Lymph % (Auto) Taylor % (Auto) Eos % (Auto) Baso % (Auto) Neut # (Auto) Lymph # (Auto) Taylor # (Auto) Eos # (Auto) Baso # (Auto) Immature Gran % Nucleated RBC % Immature Gran # Nucleated RBCs # Sodium Potassium Chloride Carbon Dioxide Anion Gap BUN Creatinine GFR Calculation BUN/Creatinine Ratio Glucose POC Glucose 151 H 158 H Calculated Osmolality Calcium Magnesium Total Creatine Kinase 217 H CK-MB (CK-2) 19.6 H CK and CKMB Interp 9.0 Troponin I 10.900 H D 01/18/17 01/18/17 01/18/17 04:08 04:08 04:08 WBC 9.9 D RBC 3.53 L Hgb 11.8 L Hct 33.7 L MCV 95.5 MCH 33 MCHC 35.0 RDW 14.4 Plt Count 167 D MPV 12.2 H Neut % (Auto) 76.5 H Lymph % (Auto) 13.6 L Taylor % (Auto) 7.3 Eos % (Auto) 1.9 Baso % (Auto) 0.2 Neut # (Auto) 7.5 H Lymph # (Auto) 1.3 L Taylor # (Auto) 0.7 Eos # (Auto) 0.2 Baso # (Auto) 0.0 Immature Gran % 0.5 Nucleated RBC % 0.0 Immature Gran # 0.05 Nucleated RBCs # 0.00 Sodium 140 Potassium 4.2 Chloride 103 Carbon Dioxide 26 Anion Gap 15.2 H BUN 20 H Creatinine 5.70 H GFR Calculation 7 BUN/Creatinine Ratio 3.00 L Glucose 95 POC Glucose Calculated Osmolality 281.4 Calcium 8.5 Magnesium Total Creatine Kinase 162 D CK-MB (CK-2) 14.2 H D CK and CKMB Interp 8.8 Troponin I 8.650 H D 01/18/17 01/18/17 04:08 07:52 WBC RBC Hgb Hct MCV MCH MCHC RDW Plt Count MPV Neut % (Auto) Lymph % (Auto) Taylor % (Auto) Eos % (Auto) Baso % (Auto) Neut # (Auto) Lymph # (Auto) Taylor # (Auto) Eos # (Auto) Baso # (Auto) Immature Gran % Nucleated RBC % Immature Gran # Nucleated RBCs # Sodium 140 Potassium 4.1 Chloride 102 Carbon Dioxide 26 Anion Gap 16.1 H BUN 19 H Creatinine 5.60 H GFR Calculation 7 BUN/Creatinine Ratio 3.00 L Glucose 97 POC Glucose 137 H Calculated Osmolality 280.4 Calcium 8.4 L Magnesium 1.5 L Total Creatine Kinase CK-MB (CK-2) CK and CKMB Interp Troponin I - EKG EKG results: interpreted by me EKG shows: sinus rhythm Specialty Discharge - Follow Up or Referrals <Reji Chapman - Last Filed: 01/18/17 17:37> Exam (Progress Note) - Constitutional Vitals: Period Temp Pulse Resp BP Sys/Sung Pulse Ox Last 24 Hr 97.0 F-98.8 F 81-91 16-18 113-180/50-93 93-96 Result/EKG - Labs CBC & BMP: 01/18/17 04:08 01/18/17 04:08 Labs: Laboratory Results - last 24 hr 01/17/17 01/17/17 01/18/17 19:55 21:03 04:08 WBC RBC Hgb Hct MCV MCH MCHC RDW Plt Count MPV Neut % (Auto) Lymph % (Auto) Taylor % (Auto) Eos % (Auto) Baso % (Auto) Neut # (Auto) Lymph # (Auto) Taylor # (Auto) Eos # (Auto) Baso # (Auto) Immature Gran % Nucleated RBC % Immature Gran # Nucleated RBCs # Sodium Potassium Chloride Carbon Dioxide Anion Gap BUN Creatinine GFR Calculation BUN/Creatinine Ratio Glucose POC Glucose 158 H Calculated Osmolality Calcium Magnesium Total Creatine Kinase 217 H 162 D CK-MB (CK-2) 19.6 H 14.2 H D CK and CKMB Interp 9.0 8.8 Troponin I 10.900 H D 8.650 H D 01/18/17 01/18/17 01/18/17 04:08 04:08 04:08 WBC 9.9 D RBC 3.53 L Hgb 11.8 L Hct 33.7 L MCV 95.5 MCH 33 MCHC 35.0 RDW 14.4 Plt Count 167 D MPV 12.2 H Neut % (Auto) 76.5 H Lymph % (Auto) 13.6 L Taylor % (Auto) 7.3 Eos % (Auto) 1.9 Baso % (Auto) 0.2 Neut # (Auto) 7.5 H Lymph # (Auto) 1.3 L Taylor # (Auto) 0.7 Eos # (Auto) 0.2 Baso # (Auto) 0.0 Immature Gran % 0.5 Nucleated RBC % 0.0 Immature Gran # 0.05 Nucleated RBCs # 0.00 Sodium 140 140 Potassium 4.2 4.1 Chloride 103 102 Carbon Dioxide 26 26 Anion Gap 15.2 H 16.1 H BUN 20 H 19 H Creatinine 5.70 H 5.60 H GFR Calculation 7 7 BUN/Creatinine Ratio 3.00 L 3.00 L Glucose 95 97 POC Glucose Calculated Osmolality 281.4 280.4 Calcium 8.5 8.4 L Magnesium 1.5 L Total Creatine Kinase CK-MB (CK-2) CK and CKMB Interp Troponin I 01/18/17 01/18/17 01/18/17 07:52 11:59 16:21 WBC RBC Hgb Hct MCV MCH MCHC RDW Plt Count MPV Neut % (Auto) Lymph % (Auto) Taylor % (Auto) Eos % (Auto) Baso % (Auto) Neut # (Auto) Lymph # (Auto) Taylor # (Auto) Eos # (Auto) Baso # (Auto) Immature Gran % Nucleated RBC % Immature Gran # Nucleated RBCs # Sodium Potassium Chloride Carbon Dioxide Anion Gap BUN Creatinine GFR Calculation BUN/Creatinine Ratio Glucose POC Glucose 137 H 255 H 153 H Calculated Osmolality Calcium Magnesium Total Creatine Kinase CK-MB (CK-2) CK and CKMB Interp Troponin I
--- NOTE | 2017-01-18 11:54 | Hospitalist Progress Note ---
Assessment and Plan - Time spent with patient Time spent with patient: Less than 30 minutes (1) HTN (hypertension) Status: Chronic Assessment and plan: 81-year-old -Armenian female with history of CAD, CVA, diabetes, hypertension, dyslipidemia, PVD, anemia, and end-stage renal disease on peritoneal dialysis admitted by hospitalist on 01/16/2017 with chest pain and shortness of breath. Patient was treated for an STEMI with medical management due to her advanced age and multiple comorbidities. Cardiology and nephrology are following. Consult has been made for swing bed facility for rehabilitation. Patient should be ready for transfer or discharge in the next day or so. Dr. Chacon has seen and examined patient and further recommendations to follow. AMI/htn--troponins are starting to trend down. Symptoms are resolved. Medical management per cardiology. Coreg has been increased. Continue hydralazine/ Imdur combination. Echo revealed EF of 25% with apical dyskinesis and distal, anterior, and inferior severe hypokinesis, moderate mitral regurgitation. DM--blood sugars are under good control with SSI. Continue to monitor Hyperkalemia--potassium is 4.1 today so this has resolved ESRD--on PD. This was done yesterday. Nephrology is following. Current Visit: No (2) Hyperlipidemia Status: Chronic Current Visit: No (3) Hyperkalemia Status: Resolved Current Visit: No (4) ESRD (end stage renal disease) Status: Chronic Current Visit: No (5) Diabetes mellitus Status: Chronic Current Visit: Yes (6) NSTEMI (non-ST elevated myocardial infarction) Status: Acute Current Visit: Yes Hospitalist: Subjective Interval history: Patient looks and feels better this morning. She has no complaints of chest pain or shortness of breath. She is requesting swing bed placement upon discharge. Exam - Constitutional Vitals: Period Temp Pulse Resp BP Sys/Sung Pulse Ox Last 24 Hr 97.0 F-97.8 F 81-98 16-20 122-180/61-93 93-96 Exam: 81-year-old -Armenian female, no acute distress, alert and oriented Chest clear CV regular rate and rhythm Abdomen soft nontender Extremities no edema Results - Labs CBC & BMP: 01/18/17 04:08 01/18/17 04:08 Lab Results: I have reviewed the past 24 hour labs Specialty Discharge - Follow Up or Referrals
[2017-01-18] MEDS ORDERED: CARVEDILOL 6.25 MG TABLET PO SCH (12:00)
[2017-01-18] MEDS: ENOXAPARIN 30 MG/0.3 ML SYRINGE SUBCUT SCH (18:35)
[2017-01-18] MEDS: LISINOPRIL 2.5 MG TABLET PO SCH (21:31)
[2017-01-18] MEDS: CARVEDILOL 12.5 MG TABLET PO SCH (21:31)
[2017-01-18] MEDS: MEGESTROL ES 125 MG/ML 30 ML/BOTTLE PO SCH (21:33)
[2017-01-19 04:08] LABS: Basophils % 0.1 % (0.0-0.8); Eosinophils # 0.1 10*3/uL (0.0-0.87); Eosinophils % 1.7 % (0.00-10.9); Hematocrit 30.4 VOL% (35.7-47.0); Hemoglobin 10.6 GM/DL (12.0-16.0); Immature Granulocytes % 0.5 %; Immature Granulocytes Absolute 0.04 #; Lymphocytes # 1.5 10*3/uL (1.4-4.0); Lymphocytes % 17.7 % (21.3-54.2); Mean Corpuscular HGB Conc 34.9 GM/DL (32-36); Mean Corpuscular Hemoglobin 33 PG (27-34); Mean Platelet Volume 12.7 FL (9.6-12.0); Monocytes # 0.7 10*3/uL (0.11-0.8); Neutrophils # 5.9 10*3/uL (1.4-7.4); Platelet Count 145 T/CUMM (130-400); Red Cell Distribution Width 13.9 % (9.3-17.3); White Blood Count 8.2 T/CUMM (4-12)
[2017-01-19 04:39] LABS: Calcium 7.9 MG/DL (8.5-10.1); Magnesium 1.4 MG/DL (1.8-2.4); Osmolality,Calculated 275.8 MOS/KG (273-304); Potassium 3.8 MMOL/L (3.5-5.1)
--- NOTE | 2017-01-19 07:32 | EKG Report ---
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
[2017-01-19] MEDS: INSULIN LISPRO 100 UNIT/ML SUBCUT SCH ×4 (08:32→21:20)
[2017-01-19] MEDS: PRAVASTATIN 40 MG TABLET PO SCH (08:33)
[2017-01-19] MEDS: PANTOPRAZOLE 40 MG TABLET PO SCH ×2 (08:33→21:12)
[2017-01-19] MEDS: ISOSORBIDE DINITRATE 20 MG TABLET PO SCH ×3 (08:33→21:12)
[2017-01-19] MEDS: ASPIRIN EC 81 MG TABLET PO SCH (08:34)
[2017-01-19] MEDS: ALLOPURINOL 300 MG TABLET PO SCH (08:34)
[2017-01-19] MEDS: NYSTATIN 500,000 UNIT/5 ML UDCUP SWISH/SWAL SCH ×4 (08:34→21:12)
[2017-01-19] MEDS ORDERED: MAGNESIUM SULF RIDER 2 GM in PREMIX 1 EACH IV PRN (08:34)
[2017-01-19] MEDS: CALCIUM (CARBONATE)/VITAMIN D 600 MG-400 UNIT TABLET PO SCH (08:34)
[2017-01-19] MEDS: LISINOPRIL 2.5 MG TABLET PO SCH (08:34)
[2017-01-19] MEDS: MULTIVITAMIN (BEROCCA) TABLET PO SCH (08:34)
[2017-01-19] MEDS: CARVEDILOL 12.5 MG TABLET PO SCH ×2 (08:34→21:12)
[2017-01-19] MEDS ORDERED: MAGNESIUM SULF RIDER 4 GM in PREMIX 1 EACH IV PRN (08:34)
[2017-01-19] MEDS: MEGESTROL ES 125 MG/ML 30 ML/BOTTLE PO SCH ×2 (08:35→21:12)
[2017-01-19] MEDS: KETOROLAC TROMETHAMINE 0.5% LEFT EYE SCH ×3 (08:35→21:12)
[2017-01-19] MEDS: BRIMONIDINE 0.15% OPH SOLN 1 DROP/DROPS BOTTLE BOTH EYES SCH ×2 (08:35→21:20)
--- NOTE | 2017-01-19 08:52 | Nephrology Progress Note ---
Nephrology - PN: Subj Interval history: Patient denies shortness of breath. Review of systems General-the patient is feeling better, GI-she denies nausea or vomiting, she denies any abdominal pain Physical exam general the patient is chronically ill-appearing Assessment/plan 1. End-stage renal disease-we will continue peritoneal dialysis unchanged 2. Weakness-this patient seems to be improved from the standpoint she is status post myocardial infarction 3. Chest pain this is resolved 4. Hypertension is controlled Exam (PN)-Nephrology - Vital Signs Vital signs: Period Temp Pulse Resp BP Sys/Sung Pulse Ox Last 24 Hr 96.8 F-99 F 73-88 16-20 98-115/48-72 93-97 - Lab 01/19/17 03:28 01/19/17 03:28 Most recent lab results Calcium 7.9 MG/DL (8.5-10.1) L 01/19/17 03:28 Phosphorus 2.6 MG/DL (2.5-4.9) 01/17/17 02:45 Magnesium 1.4 MG/DL (1.8-2.4) L 01/19/17 03:28 Assessment and Plan (1) Debility Status: Chronic Assessment and plan: This patient has been declining over the past couple of weeks per the patient's daughter. The patient has had about 3 falls in the past few weeks and has had decreasing interaction and mobility. Current Visit: Yes (2) Diarrhea Status: Acute Assessment and plan: Apparently last night the patient was repeatedly asking to get up to the bathroom and was having some loose stools that were dark in color (the patient takes iron at home). She had some abdominal soreness to palpation, I am going to get a PD fluid sample for cell count with differential Gram stain and C&S Current Visit: Yes (3) Diabetes mellitus Status: Chronic Assessment and plan: Patient has not been requiring hypoglycemic therapy since starting dialysis he year and half ago Current Visit: Yes (4) Chest pain Status: Acute Current Visit: No (5) Hyperkalemia Status: Resolved Assessment and plan: We will monitor Current Visit: No (6) Metabolic acidosis Status: Acute Current Visit: No (7) ESRD (end stage renal disease) Status: Chronic Assessment and plan: We will perform manual exchanges with 1.5% dextrose solutions 4 times a day Current Visit: No (8) HTN (hypertension) Status: Chronic Current Visit: No (9) Bradycardia Status: Resolved Assessment and plan: Patient has a history of bradycardia on 1 vital sign since admission her heart rate was around 56, the patient was started on a low dose of clonidine a couple months ago, she may do well to come off of this with her decreased interactivity and bradycardia Current Visit: No Specialty Discharge - Follow Up or Referrals
--- NOTE | 2017-01-19 10:02 | Cardiology Progress Note ---
<Joanne Martínez E - Last Filed: 01/19/17 09:54> Assessment and Plan - Time spent with patient Time spent with patient: Greater than 30 minutes (1) NSTEMI (non-ST elevated myocardial infarction) Status: Resolved Assessment and plan: SEE PLAN OF CARE LISTED BELOW Current Visit: Yes (2) Murmur, cardiac Status: Chronic Assessment and plan: SEE PLAN OF CARE LISTED BELOW Current Visit: Yes (3) Risk for falls Status: Chronic Assessment and plan: SEE PLAN OF CARE LISTED BELOW Current Visit: Yes (4) Debility Status: Chronic Assessment and plan: SEE PLAN OF CARE LISTED BELOWSEE PLAN OF CARE LISTED BELOW Current Visit: Yes (5) Diabetes mellitus Status: Chronic Assessment and plan: SEE PLAN OF CARE LISTED BELOW Current Visit: Yes (6) Advanced age Status: Chronic Assessment and plan: SEE PLAN OF CARE LISTED BELOW Current Visit: No (7) Hyperkalemia Status: Resolved Assessment and plan: SEE PLAN OF CARE LISTED BELOW Current Visit: No (8) ESRD (end stage renal disease) Status: Chronic Assessment and plan: SEE PLAN OF CARE LISTED BELOW Current Visit: No (9) HTN (hypertension) Status: Chronic Assessment and plan: SEE PLAN OF CARE LISTED BELOW Current Visit: No (10) Hyperlipidemia Status: Chronic Assessment and plan: SEE PLAN OF CARE LISTED BELOW Current Visit: No (11) Hypomagnesemia Status: Acute Assessment and plan: SEE PLAN OF CARE LISTED BELOW Current Visit: Yes Cardiology - PN: Subj Interval history: ASSET PROTECTION REPRESENTATIVE: DR. ABREU TAPPING MACHINE OPERATOR: DR. JEROME SUMMARY: Ms. Sommer, 81BF, has risk factors significant for: Known coronary artery disease, CVA, diabetes, hypertension, dyslipidemia, PVD, sedentary lifestyle. History of anemia, ESRD on peritoneal dialysis. She has been hospitalized since January 16, 2017 when she sought medical advice for chest pain, shortness of breath. Cardiac biomarkers were positive for NSTEMI. Patient and family were counseled regarding diagnosis. At this time, patient and family prefer medical management due to her advanced age and multiple comorbidities. Per Dr. Abreu's clinic note, long-standing history of labile blood pressures thought to be related to her timing of dialysis. JANUARY 17, 2017: This morning, patient tells me she is having no chest pain. She does have intermittent shortness of breath and this may be her angina. This is been occurring over the past week. Feels better with oxygen. Clonidine was discontinued yesterday and in its place. Coreg initiated. During the night, she had uncontrolled hypertension but this morning blood pressure is 142/57. We will continue to monitor and adjust medications accordingly. Echocardiogram is pending. She does have a significant murmur and in review of most recent echo from clinic (2011) there was no significant valvular abnormality. Troponin high is 7.4. Continue ASA, betablocker, Lovenox, Pravastatin. She is currently taking nitropaste. Murmur is suspicious for aortic stenosis. Echocardiogram pending. JANUARY 18, 2017: Troponin peaked at 10.9 and is decreasing. She denies chest pain, heaviness or tightness this morning. At this time, she is undergoing peritoneal dialysis in her room. Blood pressure is better but still suboptimally controlled. I will increase Coreg today. She is on the hydralazine/Imdur combination. Echocardiogram revealed: EF 25%, apical dyskinesis and distal, anterior and inferior severe hypokinesis, moderate mitral regurgitation, RVSP 56mmHg + RAP. Hopefully, she may be ready for transfer or discharge tomorrow. JANUARY 19, 2017: Overnight, Ms. Sommer continues to be pleasant without significant complaints. Denies chest pain, heaviness or tightness. She is being evaluated for swing bed today. She is significantly debilitated and certainly could benefit from additional therapies. Lisinopril was initiated this morning. In the past, she has experienced hyperkalemia when taking JACKIE therefor I will discontinued. She is taking Hydralazine TID, Isosorbide Dinitrate TID. Blood pressures have been marginal overnight and this morning. After stopping JACKIE, this should resolve. (I will add JACKIE-Inhibitors to allergies). Hypomagnesemic and starting replacement protocol. From a cardiology standpoint, she is ready for discharge. Hopefully, she will qualify for swing bed. I will give her a one-month follow-up with Dr. Abreu. ASSESSMENT/PLAN: 1. NSTEMI - continue Aspirin, Lovenox, beta blockade, lipid-lowering agent. Due to hyperkalemia, avoiding JACKIE inhibitor. Supplemental oxygen. 2. HISTORY OF MODERATE CAD - see above results of February 25, 2012 cardiac catheterization 3. CARDIAC MURMUR - see echo report above. 4. HYPERTENSION - adequately controlled. 5. DYSLIPIDEMIA - LDL 126. Continue Pravastatin 6. ESRD REQUIRING PERITONEAL DIALYSIS - Dr. Gaurav villa 7. DEBILITATED STATE - continue current plan of care. Consulting Case Management as she may benefit from SWB. 8. HYPERKALEMIA - resolved. Continue to follow daily. Avoiding JACKIE 9. H[place] RISK - institute FALL PREVENTION PROTOCOL Exam (Progress Note) - Constitutional Vitals: Period Temp Pulse Resp BP Sys/Sung Pulse Ox Last 24 Hr 96.8 F-99 F 73-88 16-20 98-115/48-72 93-97 Exam: General: [Appears well with no apparent distress.] [Pleasant and cooperative. ] [Appears comfortable.] HEENT: [Bilateral arcus noted, normocephalic, atraumatic. Mucous membranes moist. No jaundice noted. Conjunctiva moist and clear, sclerae anicteric] Neck: No obvious JVD/HJR, no thyromegaly or lymphadenopathy noted. Cardiac: [Regular rate and rhythm.] [III/ SHELLEY heard best at BUSB. Lungs: [Clear to auscultation without accessory muscle use to assist the respiratory pattern.] Oxygen in use via nasal cannula Abdomen: Soft, bowel sounds normoactive. Nontender and nondistended. No abdominal bruit or thrill noted. No masses noted. Musculoskeletal: No fluid collection. Decreased range of motion is noted. Extremities: No clubbing, cyanosis noted. [ No edema noted.] Upper extremity pulses 2+. Lower extremity pulses 1+. Capillary refill less than 3 seconds. Skin: No unusual lesions or rashes. No skin breakdown appreciated. Neuro: Awake, alert and oriented 3. Moves all extremities well without hemiparesis or paralysis. No essential tremor is appreciated. Result/EKG - Labs CBC & BMP: 01/19/17 03:28 01/19/17 03:28 Lab Results: I have reviewed the past 24 hour labs Labs: Laboratory Results - last 24 hr 01/18/17 01/18/17 01/18/17 11:59 16:21 20:41 WBC RBC Hgb Hct MCV MCH MCHC RDW Plt Count MPV Neut % (Auto) Lymph % (Auto) [place] % (Auto) Eos % (Auto) Baso % (Auto) Neut # (Auto) Lymph # (Auto) [place] # (Auto) Eos # (Auto) Baso # (Auto) Immature Gran % Nucleated RBC % Immature Gran # Nucleated RBCs # Sodium Potassium Chloride Carbon Dioxide Anion Gap BUN Creatinine GFR Calculation BUN/Creatinine Ratio Glucose POC Glucose 255 H 153 H 294 H Calculated Osmolality Calcium Magnesium 01/19/17 01/19/17 01/19/17 03:28 03:28 07:36 WBC 8.2 RBC 3.20 L Hgb 10.6 L Hct 30.4 L MCV 95.0 MCH 33 MCHC 34.9 RDW 13.9 Plt Count 145 MPV 12.7 H Neut % (Auto) 71.0 Lymph % (Auto) 17.7 L [place] % (Auto) 9.0 Eos % (Auto) 1.7 Baso % (Auto) 0.1 Neut # (Auto) 5.9 Lymph # (Auto) 1.5 [place] # (Auto) 0.7 Eos # (Auto) 0.1 Baso # (Auto) 0.0 Immature Gran % 0.5 Nucleated RBC % 0.0 Immature Gran # 0.04 Nucleated RBCs # 0.00 Sodium 137 Potassium 3.8 Chloride 98 Carbon Dioxide 29 Anion Gap 13.8 BUN 21 H Creatinine 5.80 H GFR Calculation 7 BUN/Creatinine Ratio 3.00 L Glucose 100 POC Glucose 187 H Calculated Osmolality 275.8 Calcium 7.9 L Magnesium 1.4 L - EKG EKG results: interpreted by me EKG shows: sinus rhythm Specialty Discharge - Follow Up or Referrals Follow up with: Sid Abreu MD [Physician] - 1 Month (EKG, BMP, Mg, CBC) <Reji Chapman - Last Filed: 01/19/17 11:10> Exam (Progress Note) - Constitutional Vitals: Period Temp Pulse Resp BP Sys/Sung Pulse Ox Last 24 Hr 96.8 F-99 F 73-88 16-20 98-115/48-72 93-97 Result/EKG - Labs CBC & BMP: 01/19/17 03:28 01/19/17 03:28 Labs: Laboratory Results - last 24 hr 01/18/17 01/18/17 01/18/17 11:59 16:21 20:41 WBC RBC Hgb Hct MCV MCH MCHC RDW Plt Count MPV Neut % (Auto) Lymph % (Auto) [place] % (Auto) Eos % (Auto) Baso % (Auto) Neut # (Auto) Lymph # (Auto) [place] # (Auto) Eos # (Auto) Baso # (Auto) Immature Gran % Nucleated RBC % Immature Gran # Nucleated RBCs # Sodium Potassium Chloride Carbon Dioxide Anion Gap BUN Creatinine GFR Calculation BUN/Creatinine Ratio Glucose POC Glucose 255 H 153 H 294 H Calculated Osmolality Calcium Magnesium 01/19/17 01/19/17 01/19/17 03:28 03:28 07:36 WBC 8.2 RBC 3.20 L Hgb 10.6 L Hct 30.4 L MCV 95.0 MCH 33 MCHC 34.9 RDW 13.9 Plt Count 145 MPV 12.7 H Neut % (Auto) 71.0 Lymph % (Auto) 17.7 L [place] % (Auto) 9.0 Eos % (Auto) 1.7 Baso % (Auto) 0.1 Neut # (Auto) 5.9 Lymph # (Auto) 1.5 [place] # (Auto) 0.7 Eos # (Auto) 0.1 Baso # (Auto) 0.0 Immature Gran % 0.5 Nucleated RBC % 0.0 Immature Gran # 0.04 Nucleated RBCs # 0.00 Sodium 137 Potassium 3.8 Chloride 98 Carbon Dioxide 29 Anion Gap 13.8 BUN 21 H Creatinine 5.80 H GFR Calculation 7 BUN/Creatinine Ratio 3.00 L Glucose 100 POC Glucose 187 H Calculated Osmolality 275.8 Calcium 7.9 L Magnesium 1.4 L
[2017-01-19] MEDS ORDERED: CLOPIDOGREL 300 MG TABLET PO ONE (10:46)
--- NOTE | 2017-01-19 11:12 | Event Note ---
On exam and interview Ms. Sommer. I agree with Joanne Martínez, DAVIDE's note for today (currently being updated so I cannot make addendum). 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 She is allergic to JACKIE inhibitors. I have started her on Plavix, which could be discontinued later if she has trouble with anemia or bleeding. She is already on baby aspirin per
--- NOTE | 2017-01-19 11:48 | Discharge Summary ---
Hospital Course - Hospital Course Hospital Course: OBJECT ORIENTED PROGRAMMER: DR. ABREU COOPER HELPER: DR. NOLASCO SUMMARY: Ms. Sommer, 81BF, has risk factors significant for: Known coronary artery disease, CVA, diabetes, hypertension, dyslipidemia, PVD, sedentary lifestyle. History of anemia, ESRD on peritoneal dialysis. She has been hospitalized since January 16, 2017 when she sought medical advice for chest pain, shortness of breath. Cardiac biomarkers were positive for NSTEMI. Patient and family were counseled regarding diagnosis. At this time, patient and family prefer medical management due to her advanced age and multiple comorbidities. Per Dr. Abreu's clinic note, long-standing history of labile blood pressures thought to be related to her timing of dialysis. JANUARY 17, 2017: This morning, patient tells me she is having no chest pain. She does have intermittent shortness of breath and this may be her angina. This is been occurring over the past week. Feels better with oxygen. Clonidine was discontinued yesterday and in its place. Coreg initiated. During the night, she had uncontrolled hypertension but this morning blood pressure is 142/57. We will continue to monitor and adjust medications accordingly. Echocardiogram is pending. She does have a significant murmur and in review of most recent echo from clinic (2011) there was no significant valvular abnormality. Troponin high is 7.4. Continue ASA, betablocker, Lovenox, Pravastatin. She is currently taking nitropaste. Murmur is suspicious for aortic stenosis. Echocardiogram pending. JANUARY 18, 2017: Troponin peaked at 10.9 and is decreasing. She denies chest pain, heaviness or tightness this morning. At this time, she is undergoing peritoneal dialysis in her room. Blood pressure is better but still suboptimally controlled. I will increase Coreg today. She is on the hydralazine/Imdur combination. Echocardiogram revealed: EF 25%, apical dyskinesis and distal, anterior and inferior severe hypokinesis, moderate mitral regurgitation, RVSP 56mmHg + RAP. Hopefully, she may be ready for transfer or discharge tomorrow. JANUARY 19, 2017: Overnight, Ms. Sommer continues to be pleasant without significant complaints. Denies chest pain, heaviness or tightness. She is being evaluated for swing bed today. She is significantly debilitated and certainly could benefit from additional therapies. Lisinopril was initiated this morning. In the past, she has experienced hyperkalemia when taking JACKIE therefor I will discontinued. She is taking Hydralazine TID, Isosorbide Dinitrate TID. Blood pressures have been marginal overnight and this morning. After stopping JACKIE, this should resolve. Hypomagnesemic and starting replacement protocol. This morning, patient was loaded with 300mg Plavix and starting 75mg orally daily. We will challenge her with this anti-platelet and have labs checked in one week at Dr. Abreu' office. From a cardiology standpoint, she is ready for discharge. Patient was evaluated for possible swing bed or LTAC placement. Unfortunately, she did not qualify. She is being discharged home in stable condition. Home health with physical therapy will be restarted. I will give her a one-month follow-up with Dr. Abreu or the following will be obtained, BMP, magnesium, CBC, EKG. ASSESSMENT/PLAN: 1. NSTEMI - continue Aspirin, Lovenox, beta blockade, lipid-lowering agent. Due to hyperkalemia, avoiding JACKIE inhibitor. Per Dr. Chapman, adding Plavix 75mg orally daily. Labs in one week. 2. HISTORY OF MODERATE CAD - see above results of February 25, 2012 cardiac catheterization 3. CARDIAC MURMUR - see echo report above. 4. HYPERTENSION - adequately controlled. 5. DYSLIPIDEMIA - LDL 126. Continue Pravastatin 6. ESRD REQUIRING PERITONEAL DIALYSIS - Dr. Nolasco following 7. DEBILITATED STATE - continue current plan of care. Consulting Case Management as she may benefit from SWB. 8. HYPERKALEMIA - resolved. Continue to follow daily. Avoiding JACKIE 9. HIGH FALLS RISK - institute FALL PREVENTION PROTOCOL Cardiac discharge medications: Aspirin 81 mg orally daily Coreg 12.5 mg orally twice daily Plavix 75 mg orally daily (new) Hydralazine 50 mg orally 3 times daily (new) Isosorbide dinitrate 20 mg orally 3 times daily (new) Nifedipine XL 90 mg orally each evening Pravastatin 40 mg orally each evening She will resume her other noncardiac home medications - Time spent with patient Time with patient DS: Greater than 30 minutes Diagnosis - Discharge Diagnosis (1) NSTEMI (non-ST elevated myocardial infarction) Status: Resolved (2) Murmur, cardiac Status: Chronic (3) Risk for falls Status: Chronic (4) Debility Status: Chronic (5) Diabetes mellitus Status: Chronic (6) Advanced age Status: Chronic (7) Hyperkalemia Status: Resolved (8) ESRD (end stage renal disease) Status: Chronic (9) HTN (hypertension) Status: Chronic (10) Hyperlipidemia Status: Chronic (11) Hypomagnesemia Status: Resolved Specialty Discharge - Follow Up or Referrals Follow up with: Sid Abreu MD [Physician] - 1 Month (EKG, BMP, Mg, CBC. 02/14/17 9:00am for labwork 09:20am for appt) Discharge Plan - Discharge Data Disposition: Disch To Home/Self Care Condition at Discharge: Stable Discharge Diet: heart healthy Activity: resume usual activities as tolerated Hygiene: no restrictions Weight Bearing at Discharge: other (As able) Driving: not until seen by doctor Contact your physician if you experience:: fever over 101, Difficulty voiding, Redness or swelling, Nausea/Vomiting, Shortness of breath, Bleeding, pain uncontrolled by pain medications - Discharge Medications New Clopidogrel [Plavix] 75 mg PO DAILY #30 tablet hydrALAZINE TAB [Apresoline Tab] 50 mg PO TID #90 tablet Carvedilol [Coreg] 12.5 mg PO BID #60 tablet Isosorbide Dinitrate [Isordil] 20 mg PO TID #90 tablet Continue Estradiol Tab [Estrace Tab] 1 mg PO MOWEFR Pravastatin [Pravachol] 40 mg PO DAILY Aspirin [Adult Low Dose Aspirin EC] 81 mg PO DAILY Allopurinol 300 mg PO DAILY Calcium (Carb)/Vit D 600-400 [Caltrate 600 + D] 1 tablet PO DAILY Brimonidine 0.15% Oph Soln [Alphagan P 0.15% Oph Soln] 1 drops BOTH EYES BID NIFEdipine XL TAB [Procardia Xl] 90 mg PO BEDTIME #30 tablet Ketorolac Tromethamine [Ketorolac 0.4% Oph Soln] 1 drop LEFT EYE TID Ferrous Fumarate [Ferrimin 150] 456 mg PO DAILY Megestrol Es Liquid [Megace Es Liquid] 625 mg PO BID Omeprazole 40 mg PO BID Prorenal D 1 tablet PO DAILY Discontinued cloNIDine HCl [Clonidine HCl] 0.5 mg PO BID hydrALAZINE TAB [Apresoline Tab] 100 mg PO BID - Follow Up or Referral Follow Up: Sid Abreu MD [Physician] - 1 Month (EKG, BMP, Mg, CBC. 02/14/17 9:00am for labwork 09:20am for appt) - Forms/Instructions Instructions: Myocardial Infarction (GEN), Coronary Artery Disease (GEN), Heart Healthy Diet (GEN) Exam - Constitutional Vitals: Period Temp Pulse Resp BP Sys/Sung Pulse Ox Last 24 Hr 96.8 F-99 F 73-86 16-20 98-114/48-61 93-97 Exam: General: [Appears well with no apparent distress.] [Pleasant and cooperative. ] [Appears comfortable.] HEENT: [Bilateral arcus noted, normocephalic, atraumatic. Mucous membranes moist. No jaundice noted. Conjunctiva moist and clear, sclerae anicteric] Neck: No obvious JVD/HJR, no thyromegaly or lymphadenopathy noted. Cardiac: [Regular rate and rhythm.] [III/ SHELLEY heard best at BUSB. Lungs: [Clear to auscultation without accessory muscle use to assist the respiratory pattern.] Oxygen in use via nasal cannula Abdomen: Soft, bowel sounds normoactive. Nontender and nondistended. No abdominal bruit or thrill noted. No masses noted. Musculoskeletal: No fluid collection. Decreased range of motion is noted. Extremities: No clubbing, cyanosis noted. [ No edema noted.] Upper extremity pulses 2+. Lower extremity pulses 1+. Capillary refill less than 3 seconds. Skin: No unusual lesions or rashes. No skin breakdown appreciated. Neuro: Awake, alert and oriented 3. Moves all extremities well without hemiparesis or paralysis. No essential tremor is appreciated. Discharge Results Procedures and tests throughout hospitalization: Pending Orders 01/20/17 04:00 BMP w/ Mg [Basic Metabolic Panel w/Mg] IN AM CBC [Comp Blood Count Auto Diff] IN AM 01/21/17 04:00 BMP w/ Mg [Basic Metabolic Panel w/Mg] IN AM CBC [Comp Blood Count Auto Diff] IN AM Labs on day of discharge: Labs from last 24 hours 01/19/17 01/19/17 01/19/17 12:06 07:36 03:28 WBC 8.2 RBC 3.20 L Hgb 10.6 L Hct 30.4 L MCV 95.0 MCH 33 MCHC 34.9 RDW 13.9 Plt Count 145 MPV 12.7 H Neut % (Auto) 71.0 Lymph % (Auto) 17.7 L [place] % (Auto) 9.0 Eos % (Auto) 1.7 Baso % (Auto) 0.1 Neut # (Auto) 5.9 Lymph # (Auto) 1.5 [place] # (Auto) 0.7 Eos # (Auto) 0.1 Baso # (Auto) 0.0 Immature Gran % 0.5 Nucleated RBC % 0.0 Immature Gran # 0.04 Nucleated RBCs # 0.00 Sodium Potassium Chloride Carbon Dioxide Anion Gap BUN Creatinine GFR Calculation BUN/Creatinine Ratio Glucose POC Glucose 197 H 187 H Calculated Osmolality Calcium Magnesium 01/19/17 01/18/17 01/18/17 03:28 20:41 16:21 WBC RBC Hgb Hct MCV MCH MCHC RDW Plt Count MPV Neut % (Auto) Lymph % (Auto) [place] % (Auto) Eos % (Auto) Baso % (Auto) Neut # (Auto) Lymph # (Auto) [place] # (Auto) Eos # (Auto) Baso # (Auto) Immature Gran % Nucleated RBC % Immature Gran # Nucleated RBCs # Sodium 137 Potassium 3.8 Chloride 98 Carbon Dioxide 29 Anion Gap 13.8 BUN 21 H Creatinine 5.80 H GFR Calculation 7 BUN/Creatinine Ratio 3.00 L Glucose 100 POC Glucose 294 H 153 H Calculated Osmolality 275.8 Calcium 7.9 L Magnesium 1.4 L - Imaging and Cardiology Cardiology Procedure: report reviewed by me Procedure: Chest x-ray: report reviewed by tn DS: Provider Date of admission: 01/16/17 19:28 Primary care physician: . No PCP Attending physician on admission: Tawnya Siddiqui MD Consults: 01/16/17 13:53 Consult to Dietitian [CONS] Routine Reason for Dietitian: Other 01/16/17 15:36 Consult to Occupational Therapy [CONS] Routine Reason for Occupational Therapy: Evaluate and Treat Consult to Physical Therapy [CONS] Routine Reason for Physical Therapy: Evaluate and Treat Consult to Physician [CONS] Routine Comment: Chest pain with elevated troponin Consulting Provider: Consulting Provider Notified: No Consult to Specialist Group: Cardiology When should Consulting Provider be notified: Now Person Notified: Marybeth Date Notified: 01/17/17 Time Notified: 08:45 01/16/17 15:40 Consult to Physician [CONS] Routine Comment: End-stage renal disease on peritoneal dialysis Consulting Provider: Jersey Stanford Jr. When should Consulting Provider be notified: Now Person Notified: Date Notified: 01/16/17 Time Notified: 16:05 01/16/17 16:05 Consult to Physician [CONS] Routine Comment: Consulting Provider: 01/16/17 16:06 Consult to Physician [CONS] Routine Comment: Consulting Provider: 01/17/17 06:33 Consult to Cardiac Rehabilitation [CONS] Routine Reason for Cardiac Rehabilitation: Other 01/18/17 11:34 Consult to Case Mgmt/Social Srvs [CONS] Routine Reason for Case Mgmt/Social Srvs: Discharge Planning Consult Comment: SWB candidate? 01/19/17 14:50 Consult to Case Mgmt/Social Srvs [CONS] Routine Reason for Case Mgmt/Social Srvs: Other Consult Comment: Qualify for home O2? Consult to Occupational Therapy [CONS] Routine Reason for Occupational Therapy: Weakness Start Therapy: Today Consult Comment: Needs assistance with ADLs Consult to Physical Therapy [CONS] Routine Reason for Physical Therapy: Weakness Start Therapy: Today Discharging clinician: Joanne Martínez NP Expected date of discharge: 01/19/17
--- NOTE | 2017-01-19 14:09 | Hospitalist Progress Note ---
Assessment and Plan (1) Myocardial infarction Status: Acute Assessment and plan: 1)AMI 2)HTN- under better control now. 3)DM- glucose 150-290. resume usual outpatient meds now that she is eating well. HgbA1C 5.7 4)hyperkalemia- resolved. 5)ESRD- PD at home as before. Current Visit: Yes (2) HTN (hypertension) Status: Chronic Current Visit: No (3) ESRD (end stage renal disease) Status: Chronic Current Visit: No (4) Diabetes mellitus Status: Chronic Current Visit: Yes (5) Diarrhea Status: Acute Current Visit: Yes Hospitalist: Subjective Interval history: Mrs Sommer is feeling good. She was denied for swing bed or TMR. She is going home today with Home Health care and PCP follow up. She sees Dr Brito and Dr Stanford in addition to her manager integrity. Exam - Constitutional Vitals: Period Temp Pulse Resp BP Sys/Sung Pulse Ox Last 24 Hr 96.8 F-99 F 73-86 16-20 98-114/48-61 93-97 General appearance: normal weight, no acute distress - Eye Eye exam: Present: EOMI. Absent: scleral icterus - Respiratory Respiratory exam: Present: clear to auscultation bilaterally - Cardiovascular Cardiovascular exam: Present: regular rate and rhythm - GI/Abdominal GI/Abdominal exam: Present: normal bowel sounds, soft - Extremities Exam Extremities exam: Absent: edema Results - Labs CBC & BMP: 01/19/17 03:28 01/19/17 03:28 Specialty Discharge - Follow Up or Referrals Follow up with: Sid Abreu MD [Physician] - 1 Month (EKG, BMP, Mg, CBC. 02/14/17 9:00am for labwork 09:20am for appt)
--- NOTE | 2017-01-19 14:49 | Event Note ---
At this point, we are canceling Ms. Sommer's discharge today. Ms. Sommer's daughter arrived today and felt like she was not strong enough for discharge. Unfortunately, Ms. Sommer's daughter has not been present for the past 2 days and has not been aware of patient's plan of care. I have been working very closely with her regarding discharge planning. In fact, Mr. Sommer was hesitant to even consider the possibility of rehab or swing bed. Unfortunately, patient does not qualify for rehab or swing bed. Our transplant case manager has worked diligently to find options available to her but due to her insurance and the fact that she is on peritoneal dialysis, there are no short-term options. I have asked Ilana to return and give details regarding why patient was denied. We have arranged for home health with physical therapy but daughter feels like she is not quite able to be discharged at this time. I will have physical therapy assist patient to the bedside chair, have occupational therapy work with her as well. Daughter would like for her to be evaluated for home oxygen. I will ask respiratory therapy to evaluate for home oxygen needs.
[2017-01-19] MEDS: ESTRADIOL 1 MG TABLET PO SCH (16:46)
[2017-01-19] MEDS: ENOXAPARIN 30 MG/0.3 ML SYRINGE SUBCUT SCH (17:10)
[2017-01-19] MEDS ORDERED: ALUMINUM/MAGNES/SIMETH MAX STR 30 ML UDCUP PO ONE (20:01)
[2017-01-20 04:34] LABS: Eosinophils # 0.1 10*3/uL (0.0-0.87); Eosinophils % 0.9 % (0.00-10.9); Hematocrit 30.9 VOL% (35.7-47.0); Hemoglobin 10.9 GM/DL (12.0-16.0); Immature Granulocytes % 0.6 %; Immature Granulocytes Absolute 0.05 #; Lymphocytes # 1.6 10*3/uL (1.4-4.0); Lymphocytes % 18.3 % (21.3-54.2); Mean Corpuscular HGB Conc 35.3 GM/DL (32-36); Mean Corpuscular Hemoglobin 33 PG (27-34); Mean Corpuscular Volume 93.1 FL (87-102); Mean Platelet Volume 12.5 FL (9.6-12.0); Monocytes # 0.6 10*3/uL (0.11-0.8); Monocytes % 7.2 % (1.7-12.7); NRBC # 0.03 10*3/uL; Neutrophils # 6.4 10*3/uL (1.4-7.4); Platelet Count 160 T/CUMM (130-400); Red Blood Count 3.32 MC/CUMM (3.8-5.5); Red Cell Distribution Width 13.8 % (9.3-17.3); White Blood Count 8.7 T/CUMM (4-12)
[2017-01-20 05:03] LABS: Calcium 7.9 MG/DL (8.5-10.1); Magnesium 1.4 MG/DL (1.8-2.4); Potassium 3.3 MMOL/L (3.5-5.1)
[2017-01-20] MEDS: INSULIN LISPRO 100 UNIT/ML SUBCUT SCH ×4 (08:12→20:39)
--- NOTE | 2017-01-20 08:55 | Cardiology Progress Note ---
<Joanne Martínez E - Last Filed: 01/20/17 09:17> Assessment and Plan (1) NSTEMI (non-ST elevated myocardial infarction) Status: Resolved Assessment and plan: SEE PLAN OF CARE LISTED BELOW Current Visit: Yes (2) Murmur, cardiac Status: Chronic Assessment and plan: SEE PLAN OF CARE LISTED BELOW Current Visit: Yes (3) Risk for falls Status: Chronic Assessment and plan: SEE PLAN OF CARE LISTED BELOW Current Visit: Yes (4) Debility Status: Chronic Assessment and plan: SEE PLAN OF CARE LISTED BELOWSEE PLAN OF CARE LISTED BELOW Current Visit: Yes (5) Diabetes mellitus Status: Chronic Assessment and plan: SEE PLAN OF CARE LISTED BELOW Current Visit: Yes (6) Advanced age Status: Chronic Assessment and plan: SEE PLAN OF CARE LISTED BELOW Current Visit: No (7) Hyperkalemia Status: Resolved Assessment and plan: SEE PLAN OF CARE LISTED BELOW Current Visit: No (8) ESRD (end stage renal disease) Status: Chronic Assessment and plan: SEE PLAN OF CARE LISTED BELOW Current Visit: No (9) HTN (hypertension) Status: Chronic Assessment and plan: SEE PLAN OF CARE LISTED BELOW Current Visit: No (10) Hyperlipidemia Status: Chronic Assessment and plan: SEE PLAN OF CARE LISTED BELOW Current Visit: No (11) Hypomagnesemia Status: Acute Assessment and plan: SEE PLAN OF CARE LISTED BELOW Current Visit: Yes Cardiology - PN: Subj Interval history: LAUNDRY AGENT: DR. ABREU CORPORATE RELATIONS DIRECTOR: DR. NOLASCO SUMMARY: Ms. Sommer, 81BF, has risk factors significant for: Known coronary artery disease, CVA, diabetes, hypertension, dyslipidemia, PVD, sedentary lifestyle. History of anemia, ESRD on peritoneal dialysis. She has been hospitalized since January 16, 2017 when she sought medical advice for chest pain, shortness of breath. Cardiac biomarkers were positive for NSTEMI. Patient and family were counseled regarding diagnosis. At this time, patient and family prefer medical management due to her advanced age and multiple comorbidities. Per Dr. Abreu's clinic note, long-standing history of labile blood pressures thought to be related to her timing of dialysis. JANUARY 17, 2017: This morning, patient tells me she is having no chest pain. She does have intermittent shortness of breath and this may be her angina. This is been occurring over the past week. Feels better with oxygen. Clonidine was discontinued yesterday and in its place. Coreg initiated. During the night, she had uncontrolled hypertension but this morning blood pressure is 142/57. We will continue to monitor and adjust medications accordingly. Echocardiogram is pending. She does have a significant murmur and in review of most recent echo from clinic (2011) there was no significant valvular abnormality. Troponin high is 7.4. Continue ASA, betablocker, Lovenox, Pravastatin. She is currently taking nitropaste. Murmur is suspicious for aortic stenosis. Echocardiogram pending. JANUARY 18, 2017: Troponin peaked at 10.9 and is decreasing. She denies chest pain, heaviness or tightness this morning. At this time, she is undergoing peritoneal dialysis in her room. Blood pressure is better but still suboptimally controlled. I will increase Coreg today. She is on the hydralazine/Imdur combination. Echocardiogram revealed: EF 25%, apical dyskinesis and distal, anterior and inferior severe hypokinesis, moderate mitral regurgitation, RVSP 56mmHg + RAP. Hopefully, she may be ready for transfer or discharge tomorrow. JANUARY 19, 2017: Overnight, Ms. Sommer continues to be pleasant without significant complaints. Denies chest pain, heaviness or tightness. She is being evaluated for swing bed today. She is significantly debilitated and certainly could benefit from additional therapies. Lisinopril was initiated this morning. In the past, she has experienced hyperkalemia when taking JACKIE therefor I will discontinued. She is taking Hydralazine TID, Isosorbide Dinitrate TID. Blood pressures have been marginal overnight and this morning. After stopping JACKIE, this should resolve. Hypomagnesemic and starting replacement protocol. This morning, patient was loaded with 300mg Plavix and starting 75mg orally daily. We will challenge her with this anti-platelet and have labs checked in one week at Dr. Abreu' office. JANUARY 20, 2017: Patient's discharge plans were discontinued yesterday. She is being kept for further physical therapy workup and occupational therapy workup. She was denied for swing bed (multiple locations) but our case management assistant is trying additional options today. Plavix was initiated yesterday. Oxygen saturation 99% this morning on room air. She is hypokalemic and hypomagnesemic , on IV replacement protocol. I will add additional oral medications today as well. ASSESSMENT/PLAN: 1. NSTEMI - continue Aspirin, Lovenox, beta blockade, lipid-lowering agent. Due to hyperkalemia, avoiding JACKIE inhibitor. Per Dr. Chapman, adding Plavix 75mg orally daily. Labs in one week. 2. HISTORY OF MODERATE CAD - see above results of February 25, 2012 cardiac catheterization 3. CARDIAC MURMUR - see echo report above. 4. HYPERTENSION - adequately controlled. 5. DYSLIPIDEMIA - LDL 126. Continue Pravastatin 6. ESRD REQUIRING PERITONEAL DIALYSIS - Dr. Nolasco following 7. DEBILITATED STATE - continue current plan of care. Consulting Case Management as she may benefit from SWB. 8. HYPERKALEMIA - resolved. Continue to follow daily. Avoiding JACKIE 9. HIGH FALLS RISK - institute FALL PREVENTION PROTOCOL 10. HYPOKALEMIA - was hyperkalemic on JACKIE. Now hypok+. Adding oral dose this morning. Exam (Progress Note) - Constitutional Vitals: Period Temp Pulse Resp BP Sys/Sung Pulse Ox Last 24 Hr 97.6 F-98.8 F 71-84 16-20 103-147/55-77 93-99 Exam: General: [Appears well with no apparent distress.] [Pleasant and cooperative. ] [Appears comfortable.] HEENT: [Bilateral arcus noted, normocephalic, atraumatic. Mucous membranes moist. No jaundice noted. Conjunctiva moist and clear, sclerae anicteric] Neck: No obvious JVD/HJR, no thyromegaly or lymphadenopathy noted. Cardiac: [Regular rate and rhythm.] [III/ SHELLEY heard best at BUSB. Lungs: [Clear to auscultation without accessory muscle use to assist the respiratory pattern.] Oxygen in use via nasal cannula Abdomen: Soft, bowel sounds normoactive. Nontender and nondistended. No abdominal bruit or thrill noted. No masses noted. Musculoskeletal: No fluid collection. Decreased range of motion is noted. Extremities: No clubbing, cyanosis noted. [ No edema noted.] Upper extremity pulses 2+. Lower extremity pulses 1+. Capillary refill less than 3 seconds. Skin: No unusual lesions or rashes. No skin breakdown appreciated. Neuro: Awake, alert and oriented 3. Moves all extremities well without hemiparesis or paralysis. No essential tremor is appreciated. Result/EKG - Labs CBC & BMP: 01/20/17 04:06 01/20/17 04:06 Lab Results: I have reviewed the past 24 hour labs Labs: Laboratory Results - last 24 hr 01/19/17 01/19/17 01/19/17 12:06 16:08 21:21 WBC RBC Hgb Hct MCV MCH MCHC RDW Plt Count MPV Neut % (Auto) Lymph % (Auto) Coke % (Auto) Eos % (Auto) Baso % (Auto) Neut # (Auto) Lymph # (Auto) Coke # (Auto) Eos # (Auto) Baso # (Auto) Immature Gran % Nucleated RBC % Immature Gran # Nucleated RBCs # Sodium Potassium Chloride Carbon Dioxide Anion Gap BUN Creatinine GFR Calculation BUN/Creatinine Ratio Glucose POC Glucose 197 H 205 H 185 H Calculated Osmolality Calcium Magnesium 01/20/17 01/20/17 01/20/17 04:06 04:06 08:00 WBC 8.7 RBC 3.32 L Hgb 10.9 L Hct 30.9 L MCV 93.1 MCH 33 MCHC 35.3 RDW 13.8 Plt Count 160 MPV 12.5 H Neut % (Auto) 73.0 Lymph % (Auto) 18.3 L Coke % (Auto) 7.2 Eos % (Auto) 0.9 Baso % (Auto) 0.0 Neut # (Auto) 6.4 Lymph # (Auto) 1.6 Coke # (Auto) 0.6 Eos # (Auto) 0.1 Baso # (Auto) 0.0 Immature Gran % 0.6 Nucleated RBC % 0.3 Immature Gran # 0.05 Nucleated RBCs # 0.03 Sodium 136 Potassium 3.3 L Chloride 95 L Carbon Dioxide 28 Anion Gap 16.3 H BUN 24 H Creatinine 5.80 H GFR Calculation 7 BUN/Creatinine Ratio 4.00 L Glucose 136 H POC Glucose 129 H Calculated Osmolality 277.0 Calcium 7.9 L Magnesium 1.4 L - EKG EKG results: interpreted by me EKG shows: sinus rhythm Specialty Discharge - Follow Up or Referrals Follow up with: Sid Abreu MD [Physician] - 02/14/17 9:20 am (EKG, BMP, Mg, CBC. 02/14/17 9:00am for labwork 09:20am for appt) <Reji Chapman - Last Filed: 01/20/17 12:42> Exam (Progress Note) - Constitutional Vitals: Period Temp Pulse Resp BP Sys/Sung Pulse Ox Last 24 Hr 97.6 F-98.8 F 62-84 16-20 105-147/55-77 93-99 Result/EKG - Labs CBC & BMP: 01/20/17 04:06 01/20/17 04:06 Labs: Laboratory Results - last 24 hr 01/19/17 01/19/17 01/20/17 16:08 21:21 04:06 WBC RBC Hgb Hct MCV MCH MCHC RDW Plt Count MPV Neut % (Auto) Lymph % (Auto) Coke % (Auto) Eos % (Auto) Baso % (Auto) Neut # (Auto) Lymph # (Auto) Coke # (Auto) Eos # (Auto) Baso # (Auto) Immature Gran % Nucleated RBC % Immature Gran # Nucleated RBCs # Sodium 136 Potassium 3.3 L Chloride 95 L Carbon Dioxide 28 Anion Gap 16.3 H BUN 24 H Creatinine 5.80 H GFR Calculation 7 BUN/Creatinine Ratio 4.00 L Glucose 136 H POC Glucose 205 H 185 H Calculated Osmolality 277.0 Calcium 7.9 L Magnesium 1.4 L 01/20/17 01/20/17 01/20/17 04:06 08:00 11:35 WBC 8.7 RBC 3.32 L Hgb 10.9 L Hct 30.9 L MCV 93.1 MCH 33 MCHC 35.3 RDW 13.8 Plt Count 160 MPV 12.5 H Neut % (Auto) 73.0 Lymph % (Auto) 18.3 L Coke % (Auto) 7.2 Eos % (Auto) 0.9 Baso % (Auto) 0.0 Neut # (Auto) 6.4 Lymph # (Auto) 1.6 Coke # (Auto) 0.6 Eos # (Auto) 0.1 Baso # (Auto) 0.0 Immature Gran % 0.6 Nucleated RBC % 0.3 Immature Gran # 0.05 Nucleated RBCs # 0.03 Sodium Potassium Chloride Carbon Dioxide Anion Gap BUN Creatinine GFR Calculation BUN/Creatinine Ratio Glucose POC Glucose 129 H 273 H Calculated Osmolality Calcium Magnesium
--- NOTE | 2017-01-20 09:04 | Nephrology Progress Note ---
Nephrology - PN: Subj Interval history: Patient denies shortness of breath. Review of systems GI she denies nausea or vomiting, she still does not have much of an appetite per the family. Neuro- the family is concerned that the patient is not moving her left side quite as briskly as she had been doing prior to her illness over the past couple of weeks she also is very weak in her legs. 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 End-stage renal disease-we will continue peritoneal dialysis unchanged 2. Weakness-this patient's been weight for the past couple of weeks, she has had a myocardial infarction, she has had a CT scan done a few days ago that was unremarkable for a acute injury I suspect her weakness is related to her acute illness and decreased functional reserve with regards to her brain however a repeat CT or neurology evaluation may be reasonable in this situation. 3. Hypertension this is controlled 4. Chest pain this is resolved, patient status post myocardial infarction. Exam (PN)-Nephrology - Vital Signs Vital signs: Period Temp Pulse Resp BP Sys/Sung Pulse Ox Last 24 Hr 97.6 F-98.8 F 71-84 16-20 103-147/55-77 93-99 - Lab 01/20/17 04:06 01/20/17 04:06 Most recent lab results Calcium 7.9 MG/DL (8.5-10.1) L 01/20/17 04:06 Phosphorus 2.6 MG/DL (2.5-4.9) 01/17/17 02:45 Magnesium 1.4 MG/DL (1.8-2.4) L 01/20/17 04:06 Assessment and Plan (1) Debility Status: Chronic Assessment and plan: This patient has been declining over the past couple of weeks per the patient's daughter. The patient has had about 3 falls in the past few weeks and has had decreasing interaction and mobility. Current Visit: Yes (2) Diarrhea Status: Acute Assessment and plan: Apparently last night the patient was repeatedly asking to get up to the bathroom and was having some loose stools that were dark in color (the patient takes iron at home). She had some abdominal soreness to palpation, I am going to get a PD fluid sample for cell count with differential Gram stain and C&S Current Visit: Yes (3) Diabetes mellitus Status: Chronic Assessment and plan: Patient has not been requiring hypoglycemic therapy since starting dialysis he year and half ago Current Visit: Yes (4) Chest pain Status: Acute Current Visit: No (5) Hyperkalemia Status: Resolved Assessment and plan: We will monitor Current Visit: No (6) Metabolic acidosis Status: Acute Current Visit: No (7) ESRD (end stage renal disease) Status: Chronic Assessment and plan: We will perform manual exchanges with 1.5% dextrose solutions 4 times a day Current Visit: No (8) HTN (hypertension) Status: Chronic Current Visit: No (9) Bradycardia Status: Resolved Assessment and plan: Patient has a history of bradycardia on 1 vital sign since admission her heart rate was around 56, the patient was started on a low dose of clonidine a couple months ago, she may do well to come off of this with her decreased interactivity and bradycardia Current Visit: No Specialty Discharge - Follow Up or Referrals Follow up with: Sid Abreu MD [Physician] - 1 Month (EKG, BMP, Mg, CBC. 02/14/17 9:00am for labwork 09:20am for appt)
[2017-01-20] MEDS: CARVEDILOL 12.5 MG TABLET PO SCH ×2 (09:12→20:40)
[2017-01-20] MEDS: ASPIRIN EC 81 MG TABLET PO SCH (09:12)
[2017-01-20] MEDS: CLOPIDOGREL 75 MG TABLET PO SCH (09:12)
[2017-01-20] MEDS: ISOSORBIDE DINITRATE 20 MG TABLET PO SCH ×3 (09:12→20:39)
[2017-01-20] MEDS: PRAVASTATIN 40 MG TABLET PO SCH (09:12)
[2017-01-20] MEDS: PANTOPRAZOLE 40 MG TABLET PO SCH ×2 (09:12→20:39)
[2017-01-20] MEDS: MULTIVITAMIN (BEROCCA) TABLET PO SCH (09:12)
[2017-01-20] MEDS: ALLOPURINOL 300 MG TABLET PO SCH (09:12)
[2017-01-20] MEDS: NYSTATIN 500,000 UNIT/5 ML UDCUP SWISH/SWAL SCH ×4 (09:12→20:39)
[2017-01-20] MEDS: MEGESTROL ES 125 MG/ML 30 ML/BOTTLE PO SCH ×2 (09:12→20:42)
[2017-01-20] MEDS: CALCIUM (CARBONATE)/VITAMIN D 600 MG-400 UNIT TABLET PO SCH (09:12)
[2017-01-20] MEDS: BRIMONIDINE 0.15% OPH SOLN 1 DROP/DROPS BOTTLE BOTH EYES SCH ×2 (09:13→20:40)
[2017-01-20] MEDS: KETOROLAC TROMETHAMINE 0.5% LEFT EYE SCH ×3 (09:13→20:40)
[2017-01-20] MEDS: POLYETHYLENE GLYCOL POWDER 17 GM PACK PO SCH (10:14)
--- NOTE | 2017-01-20 11:11 | CT Report ---
CT head/brain wo con Indication: Transvenous, weakness. CT BRAIN WITHOUT CONTRAST DLP: 1012 mGy*cm. One or more of the following dose reduction techniques was used: Automated exposure control, adjustment of the mA and/or kV according the patient size, or use of iterative reconstruction techniques. Comparison: 01/16/2017. Date of admission: 01/16/2017. Technique: Axial noncontrast CT images of the brain were obtained. 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 In 2014, this measured 8 x 21 mm. It does cause some posterior displacement of the cervical medullary junction of the cord but is stable in appearance. Cortical atrophy, old infarct left parietotemporal region, and patchy periventricular white matter hypodensity throughout both convexities is stable. No acute ischemic change identified on CT. No hemorrhage. No mass or mass effect. No new bone lesions. Impression: No change in the appearance of brain since 01/16/2017. 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 PROCEDURE INTERPRETED AT [facility] DEPARTMENT OF RADIOLOGY Final Report Signed by: Dinehs Gavin M.D.
[2017-01-20] MEDS: POTASSIUM CHLORIDE 20 MEQ TABLET PO PRN ×3 (13:43→20:39)
--- NOTE | 2017-01-20 13:49 | Hospitalist Progress Note ---
Assessment and Plan (1) Myocardial infarction Status: Acute Assessment and plan: 1)AMI- on meds per cardiology. 2)HTN- under better control now. 3)DM- glucose 150-290. resume usual outpatient meds now that she is eating well. HgbA1C 5.7 4)hyperkalemia- resolved. 5)ESRD- PD v HD. 6)dispo- daughter considering. 7)left arm weak, right face weak- head CT unchanged. arthritic pannus compressing cervicomedularry junction of cord. consult neuro. Discussed with Joanne Martínez- she is going to call Dr Jules. Current Visit: Yes (2) HTN (hypertension) Status: Chronic Current Visit: No (3) ESRD (end stage renal disease) Status: Chronic Current Visit: No (4) Diabetes mellitus Status: Chronic Current Visit: Yes (5) Diarrhea Status: Acute Current Visit: Yes Hospitalist: Subjective Interval history: Mrs Alejo is tired and weak today. Her head CT did not show anything new compared with a couple of days ago. Her exam is weakness in upper extremities- more in left hand than before, and tiredness but she answers questions appropriately. Her daughter is with her today and concerned about her weakness. She does not want to change her to HD in order for her to go to Swing bed, but will weigh doing that with taking her home. Exam - Constitutional Vitals: Period Temp Pulse Resp BP Sys/Sung Pulse Ox Last 24 Hr 97.6 F-98.8 F 62-84 16-20 105-147/55-77 93-99 General appearance: normal weight, no acute distress - Head Head exam: Present: normocephalic, atraumatic - Eye Eye exam: Present: EOMI. Absent: scleral icterus - Respiratory Respiratory exam: Present: clear to auscultation bilaterally - Cardiovascular Cardiovascular exam: Present: regular rate and rhythm - GI/Abdominal GI/Abdominal exam: Present: normal bowel sounds, soft. Absent: tenderness - Extremities Exam Extremities exam: Absent: edema - Neurological Exam Neurological exam: Present: alert, oriented X3. Absent: CN II-XII intact ( tongue to left, right face weak left arm weak-) Results - Labs CBC & BMP: 01/20/17 04:06 01/20/17 04:06 Lab Results: I have reviewed the past 24 hour labs Specialty Discharge - Follow Up or Referrals Follow up with: Sid Abreu MD [Physician] - 02/14/17 9:20 am (EKG, BMP, Mg, CBC. 02/14/17 9:00am for labwork 09:20am for appt)
[2017-01-20] MEDS ORDERED: SIMETHICONE CHEW 125 MG TABLET PO PRN (14:55)
--- NOTE | 2017-01-20 15:22 | Neurology Consult Note ---
History of Present Illness History of present illness: Ms. Sommer, 81 years old right-handed -[place] lady with past medical history significant for Known coronary artery disease, CVA, diabetes, hypertension, dyslipidemia, PVD, sedentary lifestyle. History of anemia, ESRD on peritoneal dialysis. She has been hospitalized since January 16, 2017 when she sought medical advice for chest pain, shortness of breath. Cardiac biomarkers were positive for NSTEMI. Patient and family were counseled regarding diagnosis. However this past Tuesday family noticed that she is weaker in the left side. She has not been able to move her left upper extremity. She had CAT scan twice which did not reveal any acute pathology. She has not been able to walk. Her speech is fluent and swallowing is good Home Medications Medication Instructions Recorded Confirmed Type Allopurinol 300 mg PO DAILY 05/03/15 01/16/17 History Aspirin [Adult Low Dose Aspirin EC] 81 mg PO DAILY 05/03/15 01/16/17 History Calcium (Carb)/Vit D 600-400 1 tablet PO DAILY 05/03/15 01/16/17 History [Caltrate 600 + D] Estradiol Tab [Estrace Tab] 1 mg PO MOWEFR 05/03/15 01/16/17 History Pravastatin [Pravachol] 40 mg PO DAILY 05/03/15 01/16/17 History Brimonidine 0.15% Oph Soln 1 drops BOTH EYES BID 05/17/15 01/16/17 History [Alphagan P 0.15% Oph Soln] NIFEdipine XL TAB [Procardia Xl] 90 mg PO BEDTIME #30 tablet 05/23/15 01/16/17 Rx Omeprazole 40 mg PO BID 12/30/16 01/16/17 History Ferrous Fumarate [Ferrimin 150] 456 mg PO DAILY 01/16/17 01/16/17 History Ketorolac Tromethamine [Ketorolac 1 drop LEFT EYE TID 01/16/17 01/16/17 History 0.4% Oph Soln] Prorenal D 1 tablet PO DAILY 01/16/17 01/16/17 History Megestrol Es Liquid [Megace Es 625 mg PO BID 01/17/17 01/17/17 History Liquid] Carvedilol [Coreg] 12.5 mg PO BID #60 tablet 01/19/17 Rx Clopidogrel [Plavix] 75 mg PO DAILY #30 tablet 01/19/17 Rx Isosorbide Dinitrate [Isordil] 20 mg PO TID #90 tablet 01/19/17 Rx hydrALAZINE TAB [Apresoline Tab] 50 mg PO TID #90 tablet 01/19/17 Rx Allergies Allergy/AdvReac Type Severity Reaction Status Date / Time JACKIE Inhibitors AdvReac Intermediate Cramping Verified 01/19/17 10:24 of the Muscles hydrocodone [From Lortab] AdvReac Intermediate Confusion Verified 01/16/17 10:32 codeine AdvReac Nausea Verified 01/16/17 10:32 12 point system: reviewed and no additional remarkable complaints except as stated Medical,Surgical,& Family Hx - Medical History Cardio: History of: Cardiac Dysrhythmia, Hypertension Psychological: History of: Anxiety Disorders, Depression (refused lexapro) Neurology: History of: Cerebrovascular Accident, Cerebral Palsy HEENT: History of: Glaucoma Comment Only: Eye Problem (left eye surgery x 3 in [place]) Endocrine: History of: Diabetes Mellitus (NIDDM), Dyslipidemia Rheumatology: History of;: Gout Renal: History of: Dialysis (peritoneal dialysis every night), Renal Failure Gastrointestinal: History of: GERD, Gastrointestinal Bleed Hematology: No history of: Blood Transfusion Reaction Other: No history of: Anesthesia Reactions - Surgical History Cardiac Surgeries: Sugical HX of: Carotid Endarterectomy HEENT Surgeries: Surgical HX of: Carotid Endarterectomy Abdominal Surgeries: Surgical HX of: Appendectomy, Cholecystectomy, Colonoscopy , EGD Reproductive Surgeries: Surgical HX of;: Hysterectomy - Family History Family History: Reports;: Family Heart Disease (in brothers and sisters.), Family Hypertension (multiple family members.), Family Stroke (mother of complications of strokes.) - Social History Smoking Status: Never smoker Frequency of Alcohol Use: None Type of Drug Use: None Exam - Constitutional Vitals: Period Temp Pulse Resp BP Sys/Sung Pulse Ox Last 24 Hr 97.6 F-98.8 F 62-84 16-20 105-147/55-77 93-99 Exam: GENERAL: Patient is in no acute distress. NECK: Neck is supple. There is no JVD. No carotid bruits present. No thyroid masses. CVS: First and second heart sounds are normal. There is no S3 present. Regular rate and rhythm. RESPIRATORY: Lungs are clear to auscultation without any rales or rhonchi. ABDOMEN: Soft and non-tender. Bowel sounds are present. There is no hepatosplenomegaly. EXT: There is no palpable edema. Peripheral pulses are present. Skin: No rashes Central Nervous system: General: Alert, awake and Oriented Speech: Fluent Comprehension: Fair Facial expressions: Normal Cranial Nerves: CN1/Olfactory: Normal CN II/ Optic: Normal, Visual Cesar unreliable CN III, and : RAY & EOMI CN V: Normal & intact CN VII: face is symmetric CNVIII: Normal CN XI/X/XI/XII: Intact and Normal Motor: Bulk and Tone is normal. Strength in the right 5/5 Strength in the left 3/5 Sensory: Unreliable Reflexes: 1+ and symmetrical Cerebellar function: Normal finger to nose and heel to carney testing. Toes: Equivocal Gait: Cannot be tested at this time, patient is quite Results - Labs CBC & BMP: 01/20/17 04:06 01/20/17 04:06 Assessment and Plan (1) CVA (cerebral vascular accident) Status: Acute Assessment and plan: Continue aspirin and Plavix. MRI of the brain. Consult TMR Thank you for the consult Current Visit: Yes Specialty Discharge - Follow Up or Referrals Follow up with: Sid Abreu MD [Physician] - 02/14/17 9:20 am (EKG, BMP, Mg, CBC. 02/14/17 9:00am for labwork 09:20am for appt)
[2017-01-20] MEDS: ENOXAPARIN 30 MG/0.3 ML SYRINGE SUBCUT SCH (17:31)
--- NOTE | 2017-01-20 17:37 | Magnetic Resonance Report ---
Exam: MR head/brain wo con Date: 01/20/2017 Comparison: None Indication: CVA Technical: 1.5 Roxy magnet Axial T1 pre-and , ADC, DWI, FLAIR, gradient echo and FSE T2 Sagittal T1 precontrast, Coronal FSE T2 Contrast:0 cc Dotarem Findings: Exam reveals no acute ADC/DWI restricted diffusion imaging present. The brainstem, cerebellum exhibit ischemic changes present in the left seb. The cerebellum reveals mild atrophy. The cerebral hemispheres exhibit abnormal signal characteristics. Encephalomalacic changes present in the left parietal lobe posteriorly laterally with underlying diffuse small vessel changes in the periventricular subcortical white matter regions bilaterally. The corpus callosum is mildly thinned with enlargement of ventricles. The seventh and eighth cranial nerves and cerebral pontine angles are intact. The pituitary gland, infundibulum and optic chiasm are intact. The paranasal sinuses exhibit normal signal characteristics. The mastoid sinuses are unremarkable. The globes and intra-and extraconal spaces are unremarkable. Impression: 1. Old infarction involving the left parietal lobe 2. Diffuse small vessel ischemic changes in the periventricular subcortical white matter regions. 3. Ischemic changes in the brainstem 4. Global atrophy 5. No acute hemorrhage or infarction or mass effect present. PROCEDURE INTERPRETED AT [facility] DEPARTMENT OF RADIOLOGY Final Report Signed by: Dr. Marcelo Pratt
[2017-01-21 04:05] LABS: Basophils % 0.1 % (0.0-0.8); Eosinophils # 0.1 10*3/uL (0.0-0.87); Eosinophils % 0.9 % (0.00-10.9); Hematocrit 31.8 VOL% (35.7-47.0); Hemoglobin 11.3 GM/DL (12.0-16.0); Immature Granulocytes % 0.6 %; Immature Granulocytes Absolute 0.05 #; Lymphocytes # 1.6 10*3/uL (1.4-4.0); Lymphocytes % 17.6 % (21.3-54.2); Mean Corpuscular HGB Conc 35.5 GM/DL (32-36); Mean Corpuscular Hemoglobin 33 PG (27-34); Mean Platelet Volume 12.6 FL (9.6-12.0); Monocytes # 0.7 10*3/uL (0.11-0.8); Monocytes % 7.8 % (1.7-12.7); Neutrophils # 6.5 10*3/uL (1.4-7.4); Platelet Count 175 T/CUMM (130-400); Red Blood Count 3.42 MC/CUMM (3.8-5.5); Red Cell Distribution Width 13.6 % (9.3-17.3); White Blood Count 8.9 T/CUMM (4-12)
[2017-01-21 04:25] LABS: Calcium 8.1 MG/DL (8.5-10.1); Magnesium 2.7 MG/DL (1.8-2.4); Osmolality,Calculated 271.2 MOS/KG (273-304); Potassium 4.2 MMOL/L (3.5-5.1)
--- NOTE | 2017-01-21 08:23 | Cardiology Progress Note ---
Assessment and Plan - Time spent with patient Time spent with patient: Greater than 30 minutes (1) NSTEMI (non-ST elevated myocardial infarction) Status: Resolved Assessment and plan: SEE PLAN OF CARE LISTED BELOW Current Visit: Yes (2) Murmur, cardiac Status: Chronic Assessment and plan: SEE PLAN OF CARE LISTED BELOW Current Visit: Yes (3) Risk for falls Status: Chronic Assessment and plan: SEE PLAN OF CARE LISTED BELOW Current Visit: Yes (4) Debility Status: Chronic Assessment and plan: SEE PLAN OF CARE LISTED BELOWSEE PLAN OF CARE LISTED BELOW Current Visit: Yes (5) Diabetes mellitus Status: Chronic Assessment and plan: SEE PLAN OF CARE LISTED BELOW Current Visit: Yes (6) Advanced age Status: Chronic Assessment and plan: SEE PLAN OF CARE LISTED BELOW Current Visit: No (7) ESRD (end stage renal disease) Status: Chronic Assessment and plan: SEE PLAN OF CARE LISTED BELOW Current Visit: No (8) HTN (hypertension) Status: Chronic Assessment and plan: SEE PLAN OF CARE LISTED BELOW Current Visit: No (9) Hyperlipidemia Status: Chronic Assessment and plan: SEE PLAN OF CARE LISTED BELOW Current Visit: No (10) Hypomagnesemia Status: Resolved Assessment and plan: SEE PLAN OF CARE LISTED BELOW Current Visit: Yes Cardiology - PN: Subj Interval history: Joanne to complete Needs BM today MRI - no acute changes? hopefully to SWB soon Asking PT to sit her up in chair No neurological deficits on my exam HORSES OR MULES TEAMSTER: DR. ABREU MEDICAL DELIVERY TECHNICIAN: DR. NOLASCO SUMMARY: Ms. Sommer, 81BF, has risk factors significant for: Known coronary artery disease, CVA, diabetes, hypertension, dyslipidemia, PVD, sedentary lifestyle. History of anemia, ESRD on peritoneal dialysis. She has been hospitalized since January 16, 2017 when she sought medical advice for chest pain, shortness of breath. Cardiac biomarkers were positive for NSTEMI. Patient and family were counseled regarding diagnosis. At this time, patient and family prefer medical management due to her advanced age and multiple comorbidities. Per Dr. Abreu's clinic note, long-standing history of labile blood pressures thought to be related to her timing of dialysis. JANUARY 17, 2017: This morning, patient tells me she is having no chest pain. She does have intermittent shortness of breath and this may be her angina. This is been occurring over the past week. Feels better with oxygen. Clonidine was discontinued yesterday and in its place. Coreg initiated. During the night, she had uncontrolled hypertension but this morning blood pressure is 142/57. We will continue to monitor and adjust medications accordingly. Echocardiogram is pending. She does have a significant murmur and in review of most recent echo from clinic (2011) there was no significant valvular abnormality. Troponin high is 7.4. Continue ASA, betablocker, Lovenox, Pravastatin. She is currently taking nitropaste. Murmur is suspicious for aortic stenosis. Echocardiogram pending. JANUARY 18, 2017: Troponin peaked at 10.9 and is decreasing. She denies chest pain, heaviness or tightness this morning. At this time, she is undergoing peritoneal dialysis in her room. Blood pressure is better but still suboptimally controlled. I will increase Coreg today. She is on the hydralazine/Imdur combination. Echocardiogram revealed: EF 25%, apical dyskinesis and distal, anterior and inferior severe hypokinesis, moderate mitral regurgitation, RVSP 56mmHg + RAP. Hopefully, she may be ready for transfer or discharge tomorrow. JANUARY 19, 2017: Overnight, Ms. Sommer continues to be pleasant without significant complaints. Denies chest pain, heaviness or tightness. She is being evaluated for swing bed today. She is significantly debilitated and certainly could benefit from additional therapies. Lisinopril was initiated this morning. In the past, she has experienced hyperkalemia when taking JACKIE therefor I will discontinued. She is taking Hydralazine TID, Isosorbide Dinitrate TID. Blood pressures have been marginal overnight and this morning. After stopping JACKIE, this should resolve. Hypomagnesemic and starting replacement protocol. This morning, patient was loaded with 300mg Plavix and starting 75mg orally daily. We will challenge her with this anti-platelet and have labs checked in one week at Dr. Abreu' office. JANUARY 20, 2017: Patient's discharge plans were discontinued yesterday. She is being kept for further physical therapy workup and occupational therapy workup. She was denied for swing bed (multiple locations) but our behavioral health case manager is trying additional options today. Plavix was initiated yesterday. Oxygen saturation 99% this morning on room air. She is hypokalemic and hypomagnesemic , on IV replacement protocol. I will add additional oral medications today as well. JANUARY 21, 2017: This morning, patient tells me she is feeling so much better. She smiles as she is eating her breakfast. Her and another gentleman or at the bedside. They are thrilled she is looking much better. There is no neurological deficits on my examination. Though she is weak, there is no hemiparesis of upper or lower extremities. She tells me she would like to get up "but they will not let me". She would like to sit up in the bedside chair. I will ask physical therapy to arrange to have her sit in the bedside chair today. Vital signs are stable as are labs. She is being evaluated for [facility]. MRI of Brain was performed yesterday. Dr. Jules is seeing patient as well. My interpretation of the impression of the MRI reveals no acute findings, chronic ischemic changes. Nothing to account for her unilateral weakness described yesterday. Will further discuss with Dr. Chapman and await additional recommendations. ASSESSMENT/PLAN: 1. NSTEMI - continue Aspirin, Lovenox, beta blockade, lipid-lowering agent. Due to history of hyperkalemia, avoiding JACKIE inhibitor. Plavix has been added. 2. HISTORY OF MODERATE CAD - see above results of February 25, 2012 cardiac catheterization 3. CARDIAC MURMUR - see echo report above. 4. HYPERTENSION - adequately controlled. 5. DYSLIPIDEMIA - LDL 126. Continue lipid lowering agent. 6. ESRD REQUIRING PERITONEAL DIALYSIS - Dr. Nolasco following 7. DEBILITATED STATE - continue current plan of care. Consulting Case Management as she may benefit from rehab or SWB. 8. HYPERKALEMIA - resolved. Continue to follow daily. Avoiding JACKIE 9. HIGH FALLS RISK - institute FALL PREVENTION PROTOCOL 10. HYPOKALEMIA - was hyperkalemic on JACKIE. Exam (Progress Note) - Constitutional Vitals: Period Temp Pulse Resp BP Sys/Sung Pulse Ox Last 24 Hr 97.5 F-97.9 F 60-66 16-18 90-133/56-60 95-100 Exam: General: [Appears well with no apparent distress.] [Pleasant and cooperative. ] [Appears comfortable.] HEENT: [Bilateral arcus noted, normocephalic, atraumatic. Mucous membranes moist. No jaundice noted. Conjunctiva moist and clear, sclerae anicteric] Neck: No obvious JVD/HJR, no thyromegaly or lymphadenopathy noted. Cardiac: [Regular rate and rhythm.] [III/ SHELLEY heard best at BUSB. Lungs: [Clear to auscultation without accessory muscle use to assist the respiratory pattern.] Oxygen in use via nasal cannula Abdomen: Soft, bowel sounds normoactive. Nontender and nondistended. No abdominal bruit or thrill noted. No masses noted. Musculoskeletal: No fluid collection. Decreased range of motion is noted. Extremities: No clubbing, cyanosis noted. [ No edema noted.] Upper extremity pulses 2+. Lower extremity pulses 1+. Capillary refill less than 3 seconds. Skin: No unusual lesions or rashes. No skin breakdown appreciated. Neuro: Awake, alert and oriented 3. Moves all extremities WITHOUT hemiparesis or paralysis. No essential tremor is appreciated. Result/EKG - Labs CBC & BMP: 01/21/17 02:38 01/21/17 02:38 Lab Results: I have reviewed the past 24 hour labs Labs: Laboratory Results - last 24 hr 01/20/17 01/20/17 01/20/17 11:35 15:40 18:55 WBC RBC Hgb Hct MCV MCH MCHC RDW Plt Count MPV Neut % (Auto) Lymph % (Auto) Menard % (Auto) Eos % (Auto) Baso % (Auto) Neut # (Auto) Lymph # (Auto) Menard # (Auto) Eos # (Auto) Baso # (Auto) Immature Gran % Nucleated RBC % Immature Gran # Nucleated RBCs # Sodium Potassium Chloride Carbon Dioxide Anion Gap BUN Creatinine GFR Calculation BUN/Creatinine Ratio Glucose POC Glucose 273 H 194 H 280 H Calculated Osmolality Calcium Magnesium 01/21/17 01/21/17 01/21/17 02:38 02:38 02:38 WBC 8.9 RBC 3.42 L Hgb 11.3 L Hct 31.8 L MCV 93.0 MCH 33 MCHC 35.5 RDW 13.6 Plt Count 175 MPV 12.6 H Neut % (Auto) 73.0 Lymph % (Auto) 17.6 L Menard % (Auto) 7.8 Eos % (Auto) 0.9 Baso % (Auto) 0.1 Neut # (Auto) 6.5 Lymph # (Auto) 1.6 Menard # (Auto) 0.7 Eos # (Auto) 0.1 Baso # (Auto) 0.0 Immature Gran % 0.6 Nucleated RBC % 0.0 Immature Gran # 0.05 Nucleated RBCs # 0.00 Sodium 134 L Potassium 4.2 4.2 Chloride 95 L Carbon Dioxide 27 Anion Gap 16.2 H BUN 25 H Creatinine 5.80 H GFR Calculation 7 BUN/Creatinine Ratio 4.00 L Glucose 95 POC Glucose Calculated Osmolality 271.2 L Calcium 8.1 L Magnesium 2.7 H 01/21/17 07:45 WBC RBC Hgb Hct MCV MCH MCHC RDW Plt Count MPV Neut % (Auto) Lymph % (Auto) Menard % (Auto) Eos % (Auto) Baso % (Auto) Neut # (Auto) Lymph # (Auto) Menard # (Auto) Eos # (Auto) Baso # (Auto) Immature Gran % Nucleated RBC % Immature Gran # Nucleated RBCs # Sodium Potassium Chloride Carbon Dioxide Anion Gap BUN Creatinine GFR Calculation BUN/Creatinine Ratio Glucose POC Glucose 128 H Calculated Osmolality Calcium Magnesium - Diagnostic Findings Procedure: CT: report reviewed by me, MRI: report reviewed by me - EKG EKG results: interpreted by me EKG shows: sinus rhythm Specialty Discharge - Follow Up or Referrals Follow up with: Sid Abreu MD [Physician] - 02/14/17 9:20 am (EKG, BMP, Mg, CBC. 02/14/17 9:00am for labwork 09:20am for appt)
[2017-01-21] MEDS: INSULIN LISPRO 100 UNIT/ML SUBCUT SCH ×3 (08:52→17:56)
[2017-01-21] MEDS: POLYETHYLENE GLYCOL POWDER 17 GM PACK PO SCH (09:34)
[2017-01-21] MEDS: CARVEDILOL 12.5 MG TABLET PO SCH (09:35)
[2017-01-21] MEDS: PRAVASTATIN 40 MG TABLET PO SCH (09:35)
[2017-01-21] MEDS: PANTOPRAZOLE 40 MG TABLET PO SCH (09:35)
[2017-01-21] MEDS: CLOPIDOGREL 75 MG TABLET PO SCH (09:35)
[2017-01-21] MEDS: MEGESTROL ES 125 MG/ML 30 ML/BOTTLE PO SCH (09:36)
[2017-01-21] MEDS: KETOROLAC TROMETHAMINE 0.5% LEFT EYE SCH ×2 (09:36→16:19)
[2017-01-21] MEDS: NYSTATIN 500,000 UNIT/5 ML UDCUP SWISH/SWAL SCH ×3 (09:36→16:20)
[2017-01-21] MEDS: ISOSORBIDE DINITRATE 20 MG TABLET PO SCH ×2 (09:36→16:19)
[2017-01-21] MEDS: ASPIRIN EC 81 MG TABLET PO SCH (09:37)
[2017-01-21] MEDS: MULTIVITAMIN (BEROCCA) TABLET PO SCH (09:37)
[2017-01-21] MEDS: CALCIUM (CARBONATE)/VITAMIN D 600 MG-400 UNIT TABLET PO SCH (09:37)
[2017-01-21] MEDS: ALLOPURINOL 300 MG TABLET PO SCH (09:37)
[2017-01-21] MEDS: BRIMONIDINE 0.15% OPH SOLN 1 DROP/DROPS BOTTLE BOTH EYES SCH (09:38)
--- NOTE | 2017-01-21 09:57 | Neurology Progress Note ---
Neurology - PN : Subjective Interval history: Patient seems to be doing about the same or maybe slightly weaker. MRI of the brain failed to show any acute pathology. It all shows old strokes and a small vessel ischemic changes. Exam (Progress Note) - Constitutional Vitals: Period Temp Pulse Resp BP Sys/Sung Pulse Ox Last 24 Hr 97.5 F-97.9 F 60-66 16-18 90-133/56-60 95-100 Exam: GENERAL: Patient is in no acute distress. NECK: Neck is supple. There is no JVD. No carotid bruits present. No thyroid masses. CVS: First and second heart sounds are normal. There is no S3 present. Regular rate and rhythm. RESPIRATORY: Lungs are clear to auscultation without any rales or rhonchi. ABDOMEN: Soft and non-tender. Bowel sounds are present. There is no hepatosplenomegaly. EXT: There is no palpable edema. Peripheral pulses are present. Skin: No rashes Central Nervous system: General: Alert, awake and Oriented Speech: Fluent Comprehension: Fair Facial expressions: Normal Cranial Nerves: CN1/Olfactory: Normal CN II/ Optic: Normal, Visual Cesar unreliable CN III, and : RAY & EOMI CN V: Normal & intact CN VII: face is symmetric CNVIII: Normal CN XI/X/XI/XII: Intact and Normal Motor: Bulk and Tone is normal. Strength in the right 5/5 Strength in the left 3/5 Sensory: Unreliable Reflexes: 1+ and symmetrical Cerebellar function: Normal finger to nose and heel to carney testing. Toes: Equivocal Gait: Cannot be tested at this time, patient is quite debilitated Results - Labs CBC & BMP: 01/21/17 02:38 01/21/17 02:38 Assessment and Plan (1) CVA (cerebral vascular accident) Status: Acute Assessment and plan: Continue aspirin and Plavix. Awaiting insurance approval for [facility] re[facility] placement Current Visit: Yes Specialty Discharge - Follow Up or Referrals Follow up with: Sid Abreu MD [Physician] - 02/14/17 9:20 am (EKG, BMP, Mg, CBC. 02/14/17 9:00am for labwork 09:20am for appt)
--- NOTE | 2017-01-21 11:14 | Nephrology Progress Note ---
Nephrology - PN: Subj Interval history: Patient denies shortness of breath. Review of systems GI she denies nausea or vomiting Physical exam general the patient is in no acute distress Assessment/plan 1. End-stage renal disease-we will continue peritoneal dialysis unchanged will use 2 L volumes on her peritoneal dialysis 2. Weakness-this patient's had weakness for the past couple of weeks she had an MRI done that shows multiple old strokes but no acute pathology, she is being seen by neurology, it sounds like patient may be going to rehab soon 3. Chest pain-patient is status post myocardial infarction this admission she is being followed by cardiology 4. Hypertension this is controlled 5. Diabetes mellitus this is controlled Exam (PN)-Nephrology - Vital Signs Vital signs: Period Temp Pulse Resp BP Sys/Sung Pulse Ox Last 24 Hr 97.5 F-97.9 F 60-66 16-18 90-133/56-60 95-100 - Lab 01/21/17 02:38 01/21/17 02:38 Most recent lab results Calcium 8.1 MG/DL (8.5-10.1) L 01/21/17 02:38 Phosphorus 2.6 MG/DL (2.5-4.9) 01/17/17 02:45 Magnesium 2.7 MG/DL (1.8-2.4) H 01/21/17 02:38 Assessment and Plan (1) Debility Status: Chronic Assessment and plan: This patient has been declining over the past couple of weeks per the patient's daughter. The patient has had about 3 falls in the past few weeks and has had decreasing interaction and mobility. Current Visit: Yes (2) Diarrhea Status: Acute Assessment and plan: Apparently last night the patient was repeatedly asking to get up to the bathroom and was having some loose stools that were dark in color (the patient takes iron at home). She had some abdominal soreness to palpation, I am going to get a PD fluid sample for cell count with differential Gram stain and C&S Current Visit: Yes (3) Diabetes mellitus Status: Chronic Assessment and plan: Patient has not been requiring hypoglycemic therapy since starting dialysis he year and half ago Current Visit: Yes (4) Chest pain Status: Acute Current Visit: No (5) Hyperkalemia Status: Resolved Assessment and plan: We will monitor Current Visit: No (6) Metabolic acidosis Status: Acute Current Visit: No (7) ESRD (end stage renal disease) Status: Chronic Assessment and plan: We will perform manual exchanges with 1.5% dextrose solutions 4 times a day Current Visit: No (8) HTN (hypertension) Status: Chronic Current Visit: No (9) Bradycardia Status: Resolved Assessment and plan: Patient has a history of bradycardia on 1 vital sign since admission her heart rate was around 56, the patient was started on a low dose of clonidine a couple months ago, she may do well to come off of this with her decreased interactivity and bradycardia Current Visit: No Specialty Discharge - Follow Up or Referrals Follow up with: Sid Abreu MD [Physician] - 02/14/17 9:20 am (EKG, BMP, Mg, CBC. 02/14/17 9:00am for labwork 09:20am for appt)
--- NOTE | 2017-01-21 13:14 | Hospitalist Progress Note ---
Assessment and Plan (1) Myocardial infarction Status: Acute Assessment and plan: 1)AMI- on meds per cardiology. 2)HTN- under better control now. 3)DM- glucose 150-290. resume usual outpatient meds now that she is eating well. HgbA1C 5.7 4)hyperkalemia- resolved. 5)ESRD- PD v HD. 6)dispo- daughter considering. 7)weakness- to TMR per Dr Jules. Current Visit: Yes (2) HTN (hypertension) Status: Chronic Current Visit: No (3) ESRD (end stage renal disease) Status: Chronic Current Visit: No (4) Diabetes mellitus Status: Chronic Current Visit: Yes (5) Diarrhea Status: Acute Current Visit: Yes Hospitalist: Subjective Interval history: Mrs Kemal had MRI of hte head that did not show acute pathology though she does have extensive evidence of old stroke and chronic ischemic changes. Her exam waxes and wanes in the course of minutes- when Joanne Early saw her she was equally strong to exam and reported feeling well, but when I went in a short time later she could not stand with assistance and required max assist to chair , left hand was weaker and less coordinated than right. Exam - Constitutional Vitals: Period Temp Pulse Resp BP Sys/Sung Pulse Ox Last 24 Hr 97.5 F-97.7 F 60-71 16-20 90-148/56-60 95-100 General appearance: normal weight, no acute distress - Head Head exam: Present: normocephalic, atraumatic - Eye Eye exam: Present: EOMI. Absent: scleral icterus - Respiratory Respiratory exam: Present: clear to auscultation bilaterally - Cardiovascular Cardiovascular exam: Present: regular rate and rhythm - GI/Abdominal GI/Abdominal exam: Present: normal bowel sounds, soft - Extremities Exam Extremities exam: Absent: edema Results - Labs CBC & BMP: 01/21/17 02:38 01/21/17 02:38 Lab Results: I have reviewed the past 24 hour labs Specialty Discharge - Follow Up or Referrals Follow up with: Sid Abreu MD [Physician] - 02/14/17 9:20 am (EKG, BMP, Mg, CBC. 02/14/17 9:00am for labwork 09:20am for appt)
[2017-01-21 16:19] VITALS: BP 137/65
[2017-01-21] MEDS: ESTRADIOL 1 MG TABLET PO SCH (16:19)
--- NOTE | 2017-01-21 16:20 | Discharge Summary ---
Hospital Course - Hospital Course Hospital Course: WINDOWS TECHNICAL SPECIALIST: DR. ABREU ADVISOR [employer] FOUNDER: DR. JEROME SUMMARY: Ms. Sommer, 81BF, has risk factors significant for: Known coronary artery disease, CVA, diabetes, hypertension, dyslipidemia, PVD, sedentary lifestyle. History of anemia, ESRD on peritoneal dialysis. She has been hospitalized since January 16, 2017 when she sought medical advice for chest pain, shortness of breath. Cardiac biomarkers were positive for NSTEMI. Patient and family were counseled regarding diagnosis. At this time, patient and family prefer medical management due to her advanced age and multiple comorbidities. Per Dr. Abreu's clinic note, long-standing history of labile blood pressures thought to be related to her timing of dialysis. JANUARY 17, 2017: This morning, patient tells me she is having no chest pain. She does have intermittent shortness of breath and this may be her angina. This is been occurring over the past week. Feels better with oxygen. Clonidine was discontinued yesterday and in its place. Coreg initiated. During the night, she had uncontrolled hypertension but this morning blood pressure is 142/57. We will continue to monitor and adjust medications accordingly. Echocardiogram is pending. She does have a significant murmur and in review of most recent echo from clinic (2011) there was no significant valvular abnormality. Troponin high is 7.4. Continue ASA, betablocker, Lovenox, Pravastatin. She is currently taking nitropaste. Murmur is suspicious for aortic stenosis. Echocardiogram pending. JANUARY 18, 2017: Troponin peaked at 10.9 and is decreasing. She denies chest pain, heaviness or tightness this morning. At this time, she is undergoing peritoneal dialysis in her room. Blood pressure is better but still suboptimally controlled. I will increase Coreg today. She is on the hydralazine/Imdur combination. Echocardiogram revealed: EF 25%, apical dyskinesis and distal, anterior and inferior severe hypokinesis, moderate mitral regurgitation, RVSP 56mmHg + RAP. Hopefully, she may be ready for transfer or discharge tomorrow. JANUARY 19, 2017: Overnight, Ms. Sommer continues to be pleasant without significant complaints. Denies chest pain, heaviness or tightness. She is being evaluated for swing bed today. She is significantly debilitated and certainly could benefit from additional therapies. Lisinopril was initiated this morning. In the past, she has experienced hyperkalemia when taking JACKIE therefor I will discontinued. She is taking Hydralazine TID, Isosorbide Dinitrate TID. Blood pressures have been marginal overnight and this morning. After stopping JACKIE, this should resolve. Hypomagnesemic and starting replacement protocol. This morning, patient was loaded with 300mg Plavix and starting 75mg orally daily. We will challenge her with this anti-platelet and have labs checked in one week at Dr. Abreu' office. JANUARY 20, 2017: Patient's discharge plans were discontinued yesterday. She is being kept for further physical therapy workup and occupational therapy workup. She was denied for swing bed (multiple locations) but our pillowcase sewer is trying additional options today. Plavix was initiated yesterday. Oxygen saturation 99% this morning on room air. She is hypokalemic and hypomagnesemic , on IV replacement protocol. I will add additional oral medications today as well. JANUARY 21, 2017: This morning, patient tells me she is feeling so much better. She smiles as she is eating her breakfast. Her and another gentleman or at the bedside. They are thrilled she is looking much better. There is no neurological deficits on my examination. Though she is weak, there is no hemiparesis of upper or lower extremities. She tells me she would like to get up "but they will not let me". She would like to sit up in the bedside chair. I will ask physical therapy to arrange to have her sit in the bedside chair today. Vital signs are stable as are labs. She is being evaluated for [facility]. MRI of Brain was performed yesterday. Dr. Jules is seeing patient as well. MRI revealed no acute findings, chronic ischemic changes. Nothing to account for her unilateral weakness described yesterday. Again, patient was turned down for short-term inpatient facility by insurance. Patient has been agreeable to home health with physical therapy. Our pillowcase sewer has arranged. Dr. Chapman discussed this information with the patient and her and they are agreeable for discharge today. We are arranging for hospital bed and again, physical therapy with home health. Having felt she met maximal medical therapy, patient is being discharged home in stable condition. She will be given a 6 week follow-up appointment with Dr. Abreu. Cardiac discharge medications: Aspirin 81 mg orally daily Coreg 12.5 mg orally twice daily Plavix 75 mg orally daily (new) Hydralazine 50 mg orally 3 times daily (new) Isosorbide dinitrate 20 mg orally 3 times daily (new) Nifedipine XL 90 mg orally each evening Pravastatin 40 mg orally each evening She will resume her other noncardiac home medications - Time spent with patient Time with patient DS: Greater than 30 minutes Diagnosis - Discharge Diagnosis (1) NSTEMI (non-ST elevated myocardial infarction) Status: Resolved (2) Murmur, cardiac Status: Chronic (3) Risk for falls Status: Chronic (4) Debility Status: Chronic (5) Diabetes mellitus Status: Chronic (6) Advanced age Status: Chronic (7) ESRD (end stage renal disease) Status: Chronic (8) HTN (hypertension) Status: Chronic (9) Hyperlipidemia Status: Chronic (10) Hypomagnesemia Status: Resolved Specialty Discharge - Follow Up or Referrals Follow up with: Sid Abreu MD [Physician] - 02/14/17 9:20 am (EKG, BMP, Mg, CBC. 02/14/17 9:00am for labwork 09:20am for appt) Discharge Plan - Discharge Data Disposition: Disch To Home/Self Care Condition at Discharge: Stable Discharge Diet: heart healthy Activity: resume usual activities as tolerated Hygiene: no restrictions Weight Bearing at Discharge: weight bear as tolerated, other Driving: not until seen by doctor Contact your physician if you experience:: fever over 101, Difficulty voiding, Redness or swelling, Nausea/Vomiting, Shortness of breath, Bleeding, pain uncontrolled by pain medications - Discharge Medications New Clopidogrel [Plavix] 75 mg PO DAILY #30 tablet hydrALAZINE TAB [Apresoline Tab] 50 mg PO TID #90 tablet Carvedilol [Coreg] 12.5 mg PO BID #60 tablet Isosorbide Dinitrate [Isordil] 20 mg PO TID #90 tablet Continue Estradiol Tab [Estrace Tab] 1 mg PO MOWEFR Pravastatin [Pravachol] 40 mg PO DAILY Aspirin [Adult Low Dose Aspirin EC] 81 mg PO DAILY Allopurinol 300 mg PO DAILY Calcium (Carb)/Vit D 600-400 [Caltrate 600 + D] 1 tablet PO DAILY Brimonidine 0.15% Oph Soln [Alphagan P 0.15% Oph Soln] 1 drops BOTH EYES BID NIFEdipine XL TAB [Procardia Xl] 90 mg PO BEDTIME #30 tablet Ketorolac Tromethamine [Ketorolac 0.4% Oph Soln] 1 drop LEFT EYE TID Ferrous Fumarate [Ferrimin 150] 456 mg PO DAILY Megestrol Es Liquid [Megace Es Liquid] 625 mg PO BID Omeprazole 40 mg PO BID Prorenal D 1 tablet PO DAILY Discontinued cloNIDine HCl [Clonidine HCl] 0.5 mg PO BID hydrALAZINE TAB [Apresoline Tab] 100 mg PO BID - Follow Up or Referral Follow Up: Sid Abreu MD [Physician] - 02/14/17 9:20 am (EKG, BMP, Mg, CBC. 02/14/17 9:00am for labwork 09:20am for appt) - Forms/Instructions Instructions: Myocardial Infarction (GEN), Coronary Artery Disease (GEN), Heart Healthy Diet (GEN) Exam - Constitutional Vitals: Period Temp Pulse Resp BP Sys/Sung Pulse Ox Last 24 Hr 97.5 F-97.7 F 60-71 16-20 90-148/57-65 93-98 Exam: General: [Appears well with no apparent distress.] [Pleasant and cooperative. ] [Appears comfortable.] HEENT: [Bilateral arcus noted, normocephalic, atraumatic. Mucous membranes moist. No jaundice noted. Conjunctiva moist and clear, sclerae anicteric] Neck: No obvious JVD/HJR, no thyromegaly or lymphadenopathy noted. Cardiac: [Regular rate and rhythm.] [III/ SHELLEY heard best at BUSB. Lungs: [Clear to auscultation without accessory muscle use to assist the respiratory pattern.] Oxygen in use via nasal cannula Abdomen: Soft, bowel sounds normoactive. Nontender and nondistended. No abdominal bruit or thrill noted. No masses noted. Musculoskeletal: No fluid collection. Decreased range of motion is noted. Extremities: No clubbing, cyanosis noted. [ No edema noted.] Upper extremity pulses 2+. Lower extremity pulses 1+. Capillary refill less than 3 seconds. Skin: No unusual lesions or rashes. No skin breakdown appreciated. Neuro: Awake, alert and oriented 3. Moves all extremities WITHOUT hemiparesis or paralysis. No essential tremor is appreciated. Discharge Results Procedures and tests throughout hospitalization: Pending Orders 01/22/17 04:00 BMP w/ Mg [Basic Metabolic Panel w/Mg] IN AM CBC [Comp Blood Count Auto Diff] IN AM 01/23/17 04:00 BMP w/ Mg [Basic Metabolic Panel w/Mg] IN AM CBC [Comp Blood Count Auto Diff] IN AM 01/24/17 04:00 BMP w/ Mg [Basic Metabolic Panel w/Mg] IN AM CBC [Comp Blood Count Auto Diff] IN AM Labs on day of discharge: Labs from last 24 hours 01/21/17 01/21/17 01/21/17 11:56 07:45 02:38 WBC 8.9 RBC 3.42 L Hgb 11.3 L Hct 31.8 L MCV 93.0 MCH 33 MCHC 35.5 RDW 13.6 Plt Count 175 MPV 12.6 H Neut % (Auto) 73.0 Lymph % (Auto) 17.6 L [place] % (Auto) 7.8 Eos % (Auto) 0.9 Baso % (Auto) 0.1 Neut # (Auto) 6.5 Lymph # (Auto) 1.6 [place] # (Auto) 0.7 Eos # (Auto) 0.1 Baso # (Auto) 0.0 Immature Gran % 0.6 Nucleated RBC % 0.0 Immature Gran # 0.05 Nucleated RBCs # 0.00 Sodium Potassium Chloride Carbon Dioxide Anion Gap BUN Creatinine GFR Calculation BUN/Creatinine Ratio Glucose POC Glucose 236 H 128 H Calculated Osmolality Calcium Magnesium 01/21/17 01/21/17 01/20/17 02:38 02:38 18:55 WBC RBC Hgb Hct MCV MCH MCHC RDW Plt Count MPV Neut % (Auto) Lymph % (Auto) [place] % (Auto) Eos % (Auto) Baso % (Auto) Neut # (Auto) Lymph # (Auto) [place] # (Auto) Eos # (Auto) Baso # (Auto) Immature Gran % Nucleated RBC % Immature Gran # Nucleated RBCs # Sodium 134 L Potassium 4.2 4.2 Chloride 95 L Carbon Dioxide 27 Anion Gap 16.2 H BUN 25 H Creatinine 5.80 H GFR Calculation 7 BUN/Creatinine Ratio 4.00 L Glucose 95 POC Glucose 280 H Calculated Osmolality 271.2 L Calcium 8.1 L Magnesium 2.7 H - Imaging and Cardiology Cardiology Procedure: report reviewed by me Procedure: Chest x-ray: report reviewed by me, Ultrasound: report reviewed by DS: Provider Date of admission: 01/16/17 19:28 Primary care physician: . No PCP Attending physician on admission: Tawnya Siddiqui MD Consults: 01/16/17 13:53 Consult to Dietitian [CONS] Routine Reason for Dietitian: Other 01/16/17 15:36 Consult to Occupational Therapy [CONS] Routine Reason for Occupational Therapy: Evaluate and Treat Consult to Physical Therapy [CONS] Routine Reason for Physical Therapy: Evaluate and Treat Consult to Physician [CONS] Routine Comment: Chest pain with elevated troponin Consulting Provider: Consulting Provider Notified: No Consult to Specialist Group: Cardiology When should Consulting Provider be notified: Now Person Notified: Marybeth Date Notified: 01/17/17 Time Notified: 08:45 01/16/17 15:40 Consult to Physician [CONS] Routine Comment: End-stage renal disease on peritoneal dialysis Consulting Provider: Jersey Stanford Jr. When should Consulting Provider be notified: Now Person Notified: Date Notified: 01/16/17 Time Notified: 16:05 01/16/17 16:05 Consult to Physician [CONS] Routine Comment: Consulting Provider: 01/16/17 16:06 Consult to Physician [CONS] Routine Comment: Consulting Provider: 01/17/17 06:33 Consult to Cardiac Rehabilitation [CONS] Routine Reason for Cardiac Rehabilitation: Other 01/18/17 11:34 Consult to Case Mgmt/Social Srvs [CONS] Routine Reason for Case Mgmt/Social Srvs: Discharge Planning Consult Comment: SWB candidate? 01/19/17 14:50 Consult to Case Mgmt/Social Srvs [CONS] Routine Reason for Case Mgmt/Social Srvs: Other Consult Comment: Qualify for home O2? Consult to Occupational Therapy [CONS] Routine Reason for Occupational Therapy: Weakness Start Therapy: Today Consult Comment: Needs assistance with ADLs Consult to Physical Therapy [CONS] Routine Reason for Physical Therapy: Weakness Start Therapy: Today 01/20/17 13:53 Consult to Physician [CONS] Routine Comment: left arm weak, ?CT findings significance Consulting Provider: Ananda Jules Person Notified: Kati Date Notified: 01/20/17 Time Notified: 02:10 01/21/17 16:09 Consult to Case Mgmt/Social Srvs [CONS] Routine Reason for Case Mgmt/Social Srvs: Discharge Planning Consult Comment: Hospital bed Discharging clinician: Joanne Martínez NP Expected date of discharge: 01/21/17
[2017-01-21] MEDS: ENOXAPARIN 30 MG/0.3 ML SYRINGE SUBCUT SCH (17:00)
== END 2017-01-21 18:33 | disposition home health service (06) | DRG 280 ==
LOC: N.EDINP 10:14 → N.ED 10:14 → SUATTDRO 12:31 → N.TELEN 13:36
PROVIDERS: ADMIT Pediatrics; ATTEND Internal Medicine Cardiovascular Disease

== ENCOUNTER 2017-02-01 15:10 | Inpatient (IN) ==
--- NOTE | 2017-02-01 17:44 | Emergency Department Note ---
Arrival - Arrival ED Nursing Triage Note: Pt c/o painful swelling of her left arm and leg x 72 hours. Mode of Arrival: Wheelchair Limitations: No Limitations Source: Patient, Family <Mingo Menezes - Last Filed: 02/01/17 17:42> <Luis Antony - Last Filed: 02/01/17 20:53> - Arrival Chief Complaint: Extremity Problem Stated Complaint: pain, numbness & swelling Left side Time Seen by Provider: 02/01/17 17:31 - History of Present Illness HPI Narrative: This 89-year-old female with previous strokes who presents the ED complaining of pain and swelling of her left arm and left leg that began 3 days ago. Patient apparently has become more weak over the last 10 days is unable to ambulate. She has had multiple strokes in the past that affected her left side. Patient does have a history of AK in the past also. I do not detect any swelling of her left leg however she does have swelling in her left arm. She does not lie on that side for extended periods of time. Patient has end-stage renal disease and undergoes peritoneal dialysis daily. (Mingo Menezes) Allergies/Adverse Reactions: Allergies Allergy/AdvReac Type Severity Reaction Status Date / Time JACKIE Inhibitors AdvReac Intermediate Cramping Verified 01/19/17 10:24 of the Muscles hydrocodone [From Lortab] AdvReac Intermediate Confusion Verified 01/16/17 10:32 codeine AdvReac Nausea Verified 01/16/17 10:32 Home Medications: Home Medications Medication Instructions Recorded Confirmed Type Allopurinol 300 mg PO DAILY 05/03/15 02/01/17 History Calcium (Carb)/Vit D 600-400 1 tablet PO DAILY 05/03/15 02/01/17 History [Caltrate 600 + D] Estradiol Tab [Estrace Tab] 1 mg PO MOWEFR 05/03/15 02/01/17 History Pravastatin [Pravachol] 40 mg PO DAILY 05/03/15 02/01/17 History Brimonidine 0.15% Oph Soln 1 drops BOTH EYES BID 05/17/15 02/01/17 History [Alphagan P 0.15% Oph Soln] Ferrous Fumarate [Ferrimin 150] 456 mg PO DAILY 01/16/17 02/01/17 History Ketorolac Tromethamine [Ketorolac 1 drop LEFT EYE TID 01/16/17 02/01/17 History 0.4% Oph Soln] Prorenal D 1 tablet PO DAILY 01/16/17 02/01/17 History Carvedilol [Coreg] 12.5 mg PO BID #60 tablet 01/19/17 02/01/17 Rx Clopidogrel [Plavix] 75 mg PO DAILY #30 tablet 01/19/17 02/01/17 Rx Isosorbide Dinitrate [Isordil] 20 mg PO TID #90 tablet 01/19/17 02/01/17 Rx hydrALAZINE TAB [Apresoline Tab] 50 mg PO TID #90 tablet 01/19/17 02/01/17 Rx Aspirin EC Tab 81 mg PO DAILY 02/01/17 02/01/17 History NIFEdipine [Nifedipine ER] 90 mg PO DAILY 02/01/17 02/01/17 History Review of System - Review of System 12 point system: reviewed and no additional remarkable complaints except as stated - Review of System Constitutional: Absent: fever Respiratory: Absent: cough Cardiovascular: Absent: chest pain Gastrointestinal: Absent: abdominal pain, nausea, vomiting Musculoskeletal: Present: arm pain (Left), leg pain, other (Left arm swelling) <Mingo Menezes - Last Filed: 02/01/17 17:42> Medical,Surgical,& Family Hx - Medical History Cardio: History of: Cardiac Dysrhythmia, Hypertension Psychological: History of: Anxiety Disorders, Depression (refused lexapro) Neurology: History of: Cerebrovascular Accident, Cerebral Palsy HEENT: History of: Glaucoma Comment Only: Eye Problem (left eye surgery x 3 in [place]) Endocrine: History of: Diabetes Mellitus (NIDDM), Dyslipidemia Rheumatology: History of;: Gout Renal: History of: Dialysis (peritoneal dialysis every night), Renal Failure Gastrointestinal: History of: GERD, Gastrointestinal Bleed Hematology: No history of: Blood Transfusion Reaction Other: No history of: Anesthesia Reactions - Surgical History Cardiac Surgeries: Sugical HX of: Carotid Endarterectomy HEENT Surgeries: Surgical HX of: Carotid Endarterectomy Abdominal Surgeries: Surgical HX of: Appendectomy, Cholecystectomy, Colonoscopy , EGD Reproductive Surgeries: Surgical HX of;: Hysterectomy - Family History Family History: Reports;: Family Heart Disease (in brothers and sisters.), Family Hypertension (multiple family members.), Family Stroke (mother of complications of strokes.) - Social History Smoking Status: Never smoker <Mingo Menezes - Last Filed: 02/01/17 17:42> Exam - General General appearance: alert, in no apparent distress - Head Head exam: Present: atraumatic - Eye Eye exam: Present: normal appearance, PERRL, EOMI - ENT ENT exam: Present: normal exam, normal oropharynx, TM's normal bilaterally. Absent: mucous membranes dry - Neck Neck exam: Present: normal inspection - Chest Chest inspection: Present: normal inspection - Respiratory Respiratory exam: Present: normal lung sounds bilaterally - Cardiovascular Cardiovascular exam: Present: regular rate, normal rhythm, normal heart sounds. Absent: murmur - Abdominal Exam Abdominal exam: Present: soft, normal bowel sounds. Absent: distention, tenderness - Rectal Exam Rectal exam: Present: deferred - Extremities Exam Extremities exam: Present: other (Patient has swelling of her left arm. She also has 1+ edema both feet. There is no swelling of the left or right leg or any calf tenderness noted.). Absent: full ROM (Pain on range of motion of her left arm.) - Back Exam Back exam: Present: normal inspection - Neurological Exam Neurological exam: Present: alert. Absent: motor sensory deficit (Patient has weakness in both legs but one is no worse than the other.) - Psychiatric Psychiatric exam: Present: normal affect, normal mood - Skin Skin exam: Present: warm, dry <Mingo Menezes - Last Filed: 02/01/17 17:42> Vital Signs: Vital Signs Temperature 98.2 F 02/01/17 17:05 Pulse Rate 51 L 02/01/17 18:30 Respiratory Rate 17 02/01/17 18:30 Blood Pressure 125/60 02/01/17 18:30 O2 Sat by Pulse Oximetry 97 02/01/17 18:30 Course <ClifMingo Carreon - Last Filed: 02/01/17 17:42> <Luis Antony - Last Filed: 02/01/17 20:53> - Reevaluation(s) Reevaluation #1: Discussed with family the need for hospitalization given her symptoms and metabolic abnormalities. (Luis Antony) - Consultations Consultation #1: Discussed with the hospitalist service who will admit for further evaluation treatment (Luis Antony) Results <Mingo Menezes - Last Filed: 02/01/17 17:42> - Labs CBC & BMP: 02/01/17 18:38 02/01/17 18:38 - Diagnostic Findings Procedure: Chest x-ray: image reviewed by me, report reviewed by me (Minimal cardiomegaly and minor atelectasis otherwise no acute disease), CT: image reviewed by me, report reviewed by me (Head: Chronic left parietal infarct with background of microvascular ischemia and cerebral atrophy) <Luis Antony - Last Filed: 02/01/17 20:53> - Labs Labs: I reviewed the lab and noted the hyperkalemia and worsening renal azotemia as well as expected anemia (Luis Antony) - Impressions EKG: Sinus bradycardia at 50 with normal [place] interval and QRS duration. Left ventricular hypertrophy with diffuse T-wave inversion resembling stroke pattern but no acute cardiac injury pattern noted (Luis Antony) Disposition <Mingo Menezes - Last Filed: 02/01/17 17:42> Case discussed with: patient, patient's family Time of Disposition: 20:53 <Luis Antony - Last Filed: 02/01/17 20:53> Clinical Impression: Worsening renal function, Hyperkalemia, Peritoneal dialysis, Poststroke neuropathies Disposition: Still a Patient Condition: Guarded
--- NOTE | 2017-02-01 18:08 | CT Report ---
Referring physician: Mingo Menezes Exam: CT brain without contrast Date: 02/01/2017 Comparison: 01/20/2017 Reason: Previous CVA with increased weakness Technique: Axial images of the head were obtained without the use of contrast. Total DLP was 942.40 mGy*cm. Findings: No hydrocephalus or midline shift is present. There is no evidence of recent intracranial hemorrhage, extracerebral collection, or abnormal mass effect. Chronic left parietal infarction with persistent atrophy and cerebral hypodensities. Arterial calcifications. The osseous structures appear intact. The mastoid air cells and visualized paranasal sinuses are clear. Impression: No acute intracranial abnormality is identified. Chronic left parietal infarction with cerebral atrophy and microvascular disease. The CT exam was performed using one or more of the following dose reduction techniques: Automated exposure control and adjustment of the mA and/or kV according to patient size. PROCEDURE INTERPRETED AT [facility] DEPARTMENT OF RADIOLOGY Final Report Signed by: Dr. Latanya Williamson
--- NOTE | 2017-02-01 18:10 | XRay Report ---
Portable chest Date: 02/01/2017 Clinical history: Generalized weakness, prior CVA Comparison: 01/16/2017 Technique: Portable AP sitting chest Findings: Minimal cardiomegaly with uncoiling of the aorta. Chronic scarring in the lungs with minimal atelectasis at the lung bases. Stable mediastinum with degenerative changes. Postoperative findings in the left neck location. Impression: Expiratory chest with minimal atelectasis at the lung bases. Minimal cardiomegaly. PROCEDURE INTERPRETED AT [facility] DEPARTMENT OF RADIOLOGY Final Report Signed by: Dr. Latanya Williamson
--- NOTE | 2017-02-01 18:33 | Ultrasound Report ---
Exam: Left lower extremity venous Doppler/duplex ultrasound Comparison: 12/01/2011 Clinical history: Left leg pain and swelling Technique: Duplex scan of the left lower extremity veins using th B- mode/grayscale imaging and Dopplers spectral analysis and color flow. Findings: There is normal compression and augmentation of the left common femoral, superficial femoral and popliteal veins. The proximal left greater saphenous veins appear to be patent. Major venous structures of the left lower extremity demonstrating normal course and caliber with normal color-flow study and spectral analysis. Impression: No evidence to suggest deep venous thrombosis within the left lower extremity. Ultrasound images were captured and stored. PROCEDURE INTERPRETED AT [facility] DEPARTMENT OF RADIOLOGY Final Report Signed by: Dr. Latanya Williamson
--- NOTE | 2017-02-01 18:34 | Ultrasound Report ---
Exam: Left upper extremity venous Doppler/duplex ultrasound Comparison: None Clinical history: Left arm swelling Technique: Duplex scan of the left upper extremity veins using th B- mode/grayscale imaging and Dopplers spectral analysis and color flow. Findings: No filling defects are identified in the left internal jugular, subclavian, axillary, cephalic, brachial, and basilic veins. Major venous structures of the left upper extremity demonstrating normal course and caliber with normal color-flow study and spectral analysis. Impression: No evidence to suggest venous thrombosis within the left upper extremity. Ultrasound images were captured and stored. PROCEDURE INTERPRETED AT [facility] DEPARTMENT OF RADIOLOGY Final Report Signed by: Dr. Latanya Williamson
[2017-02-01 19:15] LABS: Basophils % 0.1 % (0.0-0.8); Eosinophils # 0.2 10*3/uL (0.0-0.87); Eosinophils % 1.6 % (0.00-10.9); Hematocrit 28.9 VOL% (35.7-47.0); Hemoglobin 10.1 GM/DL (12.0-16.0); Immature Granulocytes % 0.4 %; Immature Granulocytes Absolute 0.04 #; Lymphocytes # 1.4 10*3/uL (1.4-4.0); Lymphocytes % 14.6 % (21.3-54.2); Mean Corpuscular HGB Conc 34.9 GM/DL (32-36); Mean Corpuscular Hemoglobin 34 PG (27-34); Mean Corpuscular Volume 96.3 FL (87-102); Mean Platelet Volume 11.2 FL (9.6-12.0); Monocytes # 0.6 10*3/uL (0.11-0.8); Monocytes % 6.1 % (1.7-12.7); Neutrophils # 7.2 10*3/uL (1.4-7.4); Neutrophils % 77.2 % (38.7-73.9); Platelet Count 199 T/CUMM (130-400); Red Cell Distribution Width 15.6 % (9.3-17.3); White Blood Count 9.3 T/CUMM (4-12)
[2017-02-01 19:50] LABS: Alanine Aminotransferase 20 U/L (13-56); Albumin 2.4 G/DL (3.4-5.0); Alkaline Phosphatase 60 U/L (45-117); Aspartate Amino Transferase 32 U/L (0-37); Bilirubin,Total < 0.39 MG/DL (0.2-1.0); Blood Urea Nitrogen 62 MG/DL (7-18); Calcium 9.1 MG/DL (8.5-10.1); Glucose 125 MG/DL (74-106); Osmolality,Calculated 288.1 MOS/KG (273-304); Potassium 5.7 MMOL/L (3.5-5.1); Sodium 135 MMOL/L (136-145); Total Protein 5.2 G/DL (6.4-8.3)
--- NOTE | 2017-02-01 21:20 | Hospitalist History & Physical ---
Assessment and Plan - Time spent with patient Time spent with patient: Greater than 30 minutes (1) Acute on chronic renal failure Status: Acute Assessment and plan: This may be secondary to dehydration. Patient will be admitted and started on gentle IV hydration. Nephrology has been consulted. Current Visit: No (2) Diabetes mellitus Status: Chronic Assessment and plan: Accu-cheks ACHS. Sliding scale per protocol. Current Visit: No (3) ESRD (end stage renal disease) Status: Chronic Assessment and plan: On peritoneal dialysis at home. Continue PD. Nephrology has been consulted. Current Visit: No (4) End stage renal disease with hypertension Status: Chronic Current Visit: No (5) Hyperkalemia Status: Resolved Current Visit: No (6) History of non-ST elevation myocardial infarction (NSTEMI) Status: Acute Assessment and plan: Patient is followed by Dr. Abreu. Continue home medications. Current Visit: Yes History of Present Illness Chief complaint: generalized weakness History of present illness: Ms. Sommer is a 81 year old female with a past medical history significant for CVA, [place], ESRD on peritoneal dialysis who presents to the ED tonight with complaints of generalized weakness with for approximately one week. The patient's daughter is at bedside and assisted with much of the history. Ms. Sommer was recently hospitalized and treated for an NSTEMI on . Echo at that time revealed an EF of 25%. She was discharged home in stable condition with a one-month follow up with Dr. Abreu. Unfortunately, the patient returns today with left upper extremity edema and generalized weakness. She also denies walking stating she has not walked since just before her last hospital administration. She did not qualify for swingbed placement and has not followed up with outpatient physical therapy. Outside of the left upper extremity edema and associated pain, she has no other complaints at this time. Venous dopplers of the left upper and lower extremities are negative for thrombosis. Creatinine is noted to be elevated at 7.5. Potassium is elevated at 5.7. As previously stated, the patient is on peritoneal dialysis and is followed by Dr. Nolasco (per hospital record). Case has been discussed with Dr. Lambert, admitting physician, and the patient will be admitted for further evaluation and treatment. She is a full code. Home medications have been reviewed and reconciled. Home Medications Medication Instructions Recorded Confirmed Type Allopurinol 300 mg PO DAILY 05/03/15 02/01/17 History Calcium (Carb)/Vit D 600-400 1 tablet PO DAILY 05/03/15 02/01/17 History [Caltrate 600 + D] Estradiol Tab [Estrace Tab] 1 mg PO MOWEFR 05/03/15 02/01/17 History Pravastatin [Pravachol] 40 mg PO DAILY 05/03/15 02/01/17 History Brimonidine 0.15% Oph Soln 1 drops BOTH EYES BID 05/17/15 02/01/17 History [Alphagan P 0.15% Oph Soln] Ferrous Fumarate [Ferrimin 150] 456 mg PO DAILY 01/16/17 02/01/17 History Ketorolac Tromethamine [Ketorolac 1 drop LEFT EYE TID 01/16/17 02/01/17 History 0.4% Oph Soln] Prorenal D 1 tablet PO DAILY 01/16/17 02/01/17 History Carvedilol [Coreg] 12.5 mg PO BID #60 tablet 01/19/17 02/01/17 Rx Clopidogrel [Plavix] 75 mg PO DAILY #30 tablet 01/19/17 02/01/17 Rx Isosorbide Dinitrate [Isordil] 20 mg PO TID #90 tablet 01/19/17 02/01/17 Rx hydrALAZINE TAB [Apresoline Tab] 50 mg PO TID #90 tablet 01/19/17 02/01/17 Rx Aspirin EC Tab 81 mg PO DAILY 02/01/17 02/01/17 History NIFEdipine [Nifedipine ER] 90 mg PO DAILY 02/01/17 02/01/17 History Allergies Allergy/AdvReac Type Severity Reaction Status Date / Time JACKIE Inhibitors AdvReac Intermediate Cramping Verified 01/19/17 10:24 of the Muscles hydrocodone [From Lortab] AdvReac Intermediate Confusion Verified 01/16/17 10:32 codeine AdvReac Nausea Verified 01/16/17 10:32 Medical,Surgical,& Family Hx - Medical History Cardio: History of: Cardiac Dysrhythmia, Hypertension Psychological: History of: Anxiety Disorders, Depression (refused lexapro) Neurology: History of: Cerebrovascular Accident, Cerebral Palsy HEENT: History of: Glaucoma Comment Only: Eye Problem (left eye surgery x 3 in [place]) Endocrine: History of: Diabetes Mellitus (NIDDM), Dyslipidemia Rheumatology: History of;: Gout Renal: History of: Dialysis (peritoneal dialysis every night), Renal Failure Gastrointestinal: History of: GERD, Gastrointestinal Bleed Hematology: No history of: Blood Transfusion Reaction Other: No history of: Anesthesia Reactions - Surgical History Cardiac Surgeries: Sugical HX of: Carotid Endarterectomy HEENT Surgeries: Surgical HX of: Carotid Endarterectomy Abdominal Surgeries: Surgical HX of: Appendectomy, Cholecystectomy, Colonoscopy , EGD Reproductive Surgeries: Surgical HX of;: Hysterectomy - Family History Family History: Reports;: Family Heart Disease (in brothers and sisters.), Family Hypertension (multiple family members.), Family Stroke (mother of complications of strokes.) - Social History Smoking Status: Never smoker Frequency of Alcohol Use: None Marital Status: Lives With:: Spouse Functional capacity: wheelchair bound - Constitutional Constitutional: Present: weakness. Absent: chills, fatigue, headache(s) - EENT Eyes: Absent: blurry vision, loss of vision Ears: Absent: decreased hearing, ear pain Nose, mouth and throat: Absent: headache(s), sinus pressure, sore throat, vertigo - Cardiovascular Cardiovascular: Present: edema (LUE). Absent: chest pain at rest, dyspnea on exertion, radiating jaw, neck or arm pain, lightheadedness - Respiratory Respiratory: Absent: cough, dyspnea, hemoptysis, wheezing, pain on inspiration - Gastrointestinal Gastrointestinal: Absent: abdominal pain, constipation, diarrhea, nausea, vomiting - Genitourinary Genitourinary: Absent: difficulty urinating, hematuria - Neurological Neurological: Absent: confusion, dizziness, syncope - Psychiatric Psychiatric: Absent: anxiety, confusion, depression - Endocrine Endocrine: Present: cold intolerance. Absent: fatigue - Hematologic/Lymphatic Hematologic/Lymphatic: Absent: easy bleeding, easy bruising Exam - Constitutional Vitals: Period Temp Pulse Resp BP Sys/Sung Pulse Ox Last 24 Hr 98.2 F-98.2 F 51-70 17-20 123-146/55-63 97-98 Exam: General appearance: normal weight, no acute distress - Head Head exam: Present: normocephalic, atraumatic - Eye Eye exam: Present: EOMI. Absent: conjunctival injection, nystagmus Pupils: Present: RAY, normal accommodation - ENT ENT exam: Present: normal exam, normal external ear exam - Neck Neck exam: Present: normal inspection. Absent: lymphadenopathy, tenderness, thyromegaly - Respiratory Respiratory exam: Present: clear to auscultation bilaterally. Absent: rales, rhonchi, wheezes - Cardiovascular Cardiovascular exam: Present: bradycardia. Absent: carotid bruit, gallop, rubs - GI/Abdominal GI/Abdominal exam: Present: normal bowel sounds. Absent: ascites, distended, mass - Extremities Exam Extremities exam: Present: normal inspection, normal capillary refill. Absent: edema - Back Exam Back exam: Absent: CVA tenderness (L), CVA tenderness (R) - Neurological Exam Neurological exam: Present: alert, oriented X3, CN II-XII intact, reflexes normal - Psychiatric Psychiatric exam: Present: normal affect, normal mood - Skin Skin exam: Present: normal color, warm, dry Results - Labs CBC & BMP: 02/01/17 18:38 02/01/17 18:38
[2017-02-01] MEDS ORDERED: ACETAMINOPHEN 325 MG TABLET PO PRN (21:23)
[2017-02-01] MEDS ORDERED: DEXTROSE 50% 25 GM/50 ML VIAL IV PRN (21:23)
[2017-02-01] MEDS ORDERED: GLUCAGON 1 MG VIAL IM PRN (21:23)
[2017-02-01] MEDS ORDERED: ONDANSETRON 4 MG/2 ML VIAL IV PRN (21:23)
--- NOTE | 2017-02-02 04:15 | EKG Report ---
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
[2017-02-02 05:24] LABS: Basophils % 0.1 % (0.0-0.8); Eosinophils # 0.1 10*3/uL (0.0-0.87); Eosinophils % 1.6 % (0.00-10.9); Hematocrit 27.3 VOL% (35.7-47.0); Hemoglobin 9.4 GM/DL (12.0-16.0); Immature Granulocytes % 0.7 %; Immature Granulocytes Absolute 0.05 #; Lymphocytes # 1.3 10*3/uL (1.4-4.0); Lymphocytes % 18.2 % (21.3-54.2); Mean Corpuscular HGB Conc 34.4 GM/DL (32-36); Mean Corpuscular Hemoglobin 33 PG (27-34); Mean Corpuscular Volume 96.8 FL (87-102); Mean Platelet Volume 11.3 FL (9.6-12.0); Monocytes # 0.4 10*3/uL (0.11-0.8); Monocytes % 6.1 % (1.7-12.7); Neutrophils # 5.1 10*3/uL (1.4-7.4); Neutrophils % 73.3 % (38.7-73.9); Platelet Count 190 T/CUMM (130-400); Red Blood Count 2.82 MC/CUMM (3.8-5.5); Red Cell Distribution Width 15.8 % (9.3-17.3); White Blood Count 6.9 T/CUMM (4-12)
[2017-02-02 05:58] LABS: Albumin 2.3 G/DL (3.4-5.0); Bilirubin,Total 0.6 MG/DL (0.2-1.0); Calcium 8.4 MG/DL (8.5-10.1); Magnesium 2.3 MG/DL (1.8-2.4); Osmolality,Calculated 292.5 MOS/KG (273-304); Total Protein 5.1 G/DL (6.4-8.3)
[2017-02-02] MEDS: INSULIN LISPRO 100 UNIT/ML SUBCUT SCH ×4 (08:17→20:36)
[2017-02-02] MEDS ORDERED: SODIUM CHLORIDE 0.9% 1,000 ML IV SCH (08:30)
[2017-02-02] MEDS: ISOSORBIDE DINITRATE 20 MG TABLET PO SCH ×3 (09:12→20:39)
[2017-02-02] MEDS: CLOPIDOGREL 75 MG TABLET PO SCH (09:12)
[2017-02-02] MEDS: PRAVASTATIN 40 MG TABLET PO SCH (09:13)
[2017-02-02] MEDS: PANTOPRAZOLE 40 MG TABLET PO SCH (09:13)
[2017-02-02] MEDS: ASPIRIN EC 81 MG TABLET PO SCH (09:13)
[2017-02-02] MEDS: CARVEDILOL 12.5 MG TABLET PO SCH ×2 (09:13→20:39)
[2017-02-02] MEDS: ALLOPURINOL 300 MG TABLET PO SCH (09:13)
[2017-02-02] MEDS: CALCIUM (CARBONATE)/VITAMIN D 600 MG-400 UNIT TABLET PO SCH (09:13)
[2017-02-02] MEDS: BRIMONIDINE 0.15% OPH SOLN 1 DROP/DROPS BOTTLE BOTH EYES SCH ×2 (09:16→20:38)
--- NOTE | 2017-02-02 09:58 | Nephrology Consult Note ---
History of Present Illness Chief complaint: End-stage renal disease History of present illness: Ms. Sommer is a 81 year old female end-stage renal disease due to hypertension diabetes she is currently on peritoneal dialysis. Patient is status post a non- ST elevated MO earlier this month and was discharged home for further care. Patient now presents with weakness and left upper extremity swelling. She has been using a 1.25 solutions for her dialysis exchanges. Her Doppler studies were negative for DVT. At present she mentions feeling better although she does have some pain in her shoulder and her hand from the swelling. No fevers or chills reported. Nephrology is consulted for renal issues. Home Medications Medication Instructions Recorded Confirmed Type Allopurinol 300 mg PO DAILY 05/03/15 02/01/17 History Calcium (Carb)/Vit D 600-400 1 tablet PO DAILY 05/03/15 02/01/17 History [Caltrate 600 + D] Estradiol Tab [Estrace Tab] 1 mg PO MOWEFR 05/03/15 02/01/17 History Pravastatin [Pravachol] 40 mg PO DAILY 05/03/15 02/01/17 History Brimonidine 0.15% Oph Soln 1 drops BOTH EYES BID 05/17/15 02/01/17 History [Alphagan P 0.15% Oph Soln] Ferrous Fumarate [Ferrimin 150] 456 mg PO DAILY 01/16/17 02/01/17 History Ketorolac Tromethamine [Ketorolac 1 drop LEFT EYE TID 01/16/17 02/01/17 History 0.4% Oph Soln] Prorenal D 1 tablet PO DAILY 01/16/17 02/01/17 History Carvedilol [Coreg] 12.5 mg PO BID #60 tablet 01/19/17 02/01/17 Rx Clopidogrel [Plavix] 75 mg PO DAILY #30 tablet 01/19/17 02/01/17 Rx Isosorbide Dinitrate [Isordil] 20 mg PO TID #90 tablet 01/19/17 02/01/17 Rx hydrALAZINE TAB [Apresoline Tab] 50 mg PO TID #90 tablet 01/19/17 02/01/17 Rx Aspirin EC Tab 81 mg PO DAILY 02/01/17 02/01/17 History NIFEdipine [Nifedipine ER] 90 mg PO DAILY 02/01/17 02/01/17 History Allergies Allergy/AdvReac Type Severity Reaction Status Date / Time JACKIE Inhibitors AdvReac Intermediate Cramping Verified 01/19/17 10:24 of the Muscles hydrocodone [From Lortab] AdvReac Intermediate Confusion Verified 01/16/17 10:32 codeine AdvReac Nausea Verified 01/16/17 10:32 Medical,Surgical,& Family Hx - Medical History Cardio: History of: Cardiac Dysrhythmia, Hypertension, Cardiovascular Problems Psychological: History of: Anxiety Disorders, Depression (refused lexapro) Neurology: History of: Cerebrovascular Accident, Cerebral Palsy No history of: Brain Aneurysm, Cerebral Hemorrhage, Dementia, Migraine, Multiple Sclerosis, Parkinson's Disease, Peripheral Neuropathy, Seizures, TIA, Vertigo, Neurologocal Cancer HEENT: History of: Glaucoma Comment Only: Eye Problem (left eye surgery x 3 in [place]) Endocrine: History of: Diabetes Mellitus (NIDDM), Dyslipidemia Rheumatology: History of;: Gout Renal: History of: Dialysis (peritoneal dialysis every night), Renal Failure, Renal Problems Gastrointestinal: History of: GERD, Gastrointestinal Bleed Hematology: No history of: Blood Transfusion Reaction Other: No history of: Anesthesia Reactions - Surgical History Cardiac Surgeries: Sugical HX of: Carotid Endarterectomy Neurologic Surgeries: Patient denies: Brain Aneurysm, Cerebral Hemorrhage, Neurologic Surgery HEENT Surgeries: Surgical HX of: Carotid Endarterectomy Abdominal Surgeries: Surgical HX of: Appendectomy, Cholecystectomy, Colonoscopy , EGD Reproductive Surgeries: Surgical HX of;: Hysterectomy - Family History Family History: Reports;: Family Heart Disease (in brothers and sisters.), Family Hypertension (multiple family members.), Family Stroke (mother of complications of strokes.) - Social History Smoking Status: Never smoker Frequency of Alcohol Use: None Review of Systems Constitutional: no anorexia, no chills Cardiovascular: no dyspnea Respiratory: no as per HPI, no cough Gastrointestinal: no abdominal pain Musculoskeletal: joint swelling Neurological: no numbness, no syncope Exam - Vital Signs Vital signs: Period Temp Pulse Resp BP Sys/Sung Pulse Ox Last 24 Hr 98.2 F-98.7 F 51-70 16-20 123-160/55-82 97-98 - General Appearance General appearance: well-developed, well-nourished Neck: supple Respiratory: clear Cardiology: edema (Swelling in the right upper arm), regular rate, regular rhythm Gastrointestinal: normoactive bowel sounds, no tenderness Integumentary: no rash Neurologic: alert and oriented x3, CN 3-12 intact Results - Labs CBC & BMP: 02/02/17 05:11 02/02/17 05:11 Assessment and Plan (1) Hyperlipidemia Status: Chronic Current Visit: No (2) Advanced age Status: Chronic Current Visit: No (3) Diabetes mellitus Status: Chronic Current Visit: No Qualifiers: Diabetes mellitus type: type 2 Chronic kidney disease stage: on chronic dialysis (4) Debility Status: Chronic Current Visit: No (5) Risk for falls Status: Chronic Current Visit: No (6) CVA (cerebral vascular accident) Status: Chronic Current Visit: No (7) History of non-ST elevation myocardial infarction (NSTEMI) Status: Chronic Current Visit: Yes (8) End stage renal disease Status: Chronic Assessment and plan: Continue with peritoneal dialysis. Will use alternating 4.25 and 2.5% dextrose to help with the extremity swelling. Will use 2 L volumes 4 exchanges and 4 hour dwells. Current Visit: Yes
--- NOTE | 2017-02-02 13:36 | Hospitalist Progress Note ---
Assessment and Plan (1) ESRD on peritoneal dialysis Status: Acute Assessment and plan: Nephrology consulted PD today Current Visit: Yes (2) History of non-ST elevation myocardial infarction (NSTEMI) Status: Chronic Current Visit: Yes Hospitalist: Subjective Interval history: No acute events overnight. No complaints this morning. Underwent some PD early this am. AM labs were checked before this. Exam - Constitutional Vitals: Period Temp Pulse Resp BP Sys/Sung Pulse Ox Last 24 Hr 97.8 F-98.7 F 51-70 16-20 123-160/55-82 96-98 General appearance: over weight - Head Head exam: Present: normocephalic, atraumatic - Eye Eye exam: Present: EOMI Pupils: Present: RAY - ENT ENT exam: Present: normal exam - Neck Neck exam: Present: normal inspection - Respiratory Respiratory exam: Present: clear to auscultation bilaterally. Absent: rhonchi, wheezes - Cardiovascular Cardiovascular exam: Present: regular rate and rhythm - GI/Abdominal GI/Abdominal exam: Present: normal bowel sounds, soft. Absent: tenderness, rebound - Extremities Exam Extremities exam: Present: normal inspection - Back Exam Back exam: Present: normal inspection - Neurological Exam Neurological exam: Present: alert, oriented X3 - Psychiatric Psychiatric exam: Present: normal affect, normal mood - Skin Skin exam: Present: warm, intact Results - Labs CBC & BMP: 02/02/17 05:11 02/02/17 05:11 Quality Measures - Stroke Symptom Onset Unknown: No
[2017-02-02] MEDS: KETOROLAC 0.5% OPH SOLN 3 ML BOTTLE LEFT EYE SCH ×2 (15:14→20:38)
[2017-02-02] MEDS: SODIUM CHLORIDE 0.9% 1,000 ML IV SCH (15:38)
[2017-02-02] MEDS: ESTRADIOL 1 MG TABLET PO SCH (20:39)
[2017-02-03] MEDS ORDERED: ALUMINUM/MAGNES/SIMETH MAX STR 30 ML UDCUP PO PRN (02:40)
[2017-02-03 05:42] LABS: Basophils % 0.1 % (0.0-0.8); Eosinophils # 0.1 10*3/uL (0.0-0.87); Eosinophils % 1.4 % (0.00-10.9); Hematocrit 27.5 VOL% (35.7-47.0); Hemoglobin 9.6 GM/DL (12.0-16.0); Immature Granulocytes % 0.5 %; Immature Granulocytes Absolute 0.04 #; Lymphocytes # 1.4 10*3/uL (1.4-4.0); Lymphocytes % 19.5 % (21.3-54.2); Mean Corpuscular HGB Conc 34.9 GM/DL (32-36); Mean Corpuscular Hemoglobin 34 PG (27-34); Mean Corpuscular Volume 96.8 FL (87-102); Mean Platelet Volume 11.7 FL (9.6-12.0); Monocytes # 0.6 10*3/uL (0.11-0.8); Monocytes % 7.6 % (1.7-12.7); NRBC # 0.02 10*3/uL; Neutrophils # 5.2 10*3/uL (1.4-7.4); Neutrophils % 70.9 % (38.7-73.9); Platelet Count 207 T/CUMM (130-400); Red Blood Count 2.84 MC/CUMM (3.8-5.5); Red Cell Distribution Width 15.7 % (9.3-17.3); White Blood Count 7.4 T/CUMM (4-12)
[2017-02-03 06:13] LABS: Calcium 8.6 MG/DL (8.5-10.1); Magnesium 2.3 MG/DL (1.8-2.4); Osmolality,Calculated 295.4 MOS/KG (273-304); Potassium 5.7 MMOL/L (3.5-5.1)
--- NOTE | 2017-02-03 06:16 | EKG Report ---
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
[2017-02-03 06:31] LABS: Folate > 24.0 NG/ML (5.4-24.0); Vitamin B12 459 PG/ML (211-911)
[2017-02-03] MEDS: INSULIN LISPRO 100 UNIT/ML SUBCUT SCH ×4 (08:35→20:47)
[2017-02-03] MEDS: CLOPIDOGREL 75 MG TABLET PO SCH (08:38)
[2017-02-03] MEDS: ISOSORBIDE DINITRATE 20 MG TABLET PO SCH ×3 (08:38→20:48)
[2017-02-03] MEDS: KETOROLAC 0.5% OPH SOLN 3 ML BOTTLE LEFT EYE SCH ×3 (08:38→20:48)
[2017-02-03] MEDS: ASPIRIN EC 81 MG TABLET PO SCH (08:38)
[2017-02-03] MEDS: PANTOPRAZOLE 40 MG TABLET PO SCH (08:38)
[2017-02-03] MEDS: PRAVASTATIN 40 MG TABLET PO SCH (08:38)
[2017-02-03] MEDS: CALCIUM (CARBONATE)/VITAMIN D 600 MG-400 UNIT TABLET PO SCH (08:38)
[2017-02-03] MEDS: CARVEDILOL 12.5 MG TABLET PO SCH ×2 (08:38→20:48)
[2017-02-03] MEDS: MULTIVITAMIN (BEROCCA) TABLET PO SCH (08:38)
[2017-02-03] MEDS: BRIMONIDINE 0.15% OPH SOLN 1 DROP/DROPS BOTTLE BOTH EYES SCH ×2 (08:38→20:48)
[2017-02-03] MEDS: ALLOPURINOL 300 MG TABLET PO SCH (08:38)
--- NOTE | 2017-02-03 10:55 | Nephrology Progress Note ---
Nephrology - PN: Subj Interval history: The patient is resting. Hemodynamics are stable. Left upper arm swelling is showing signs of improvement. Continue with PD exchanges with alternating 4.25 and 2.5% dextrose solutions for changes. Would continue this regimen for the next 24 hours. Serum potassium continues to show signs of improvement. Exam (PN)-Nephrology - Vital Signs Vital signs: Period Temp Pulse Resp BP Sys/Sung Pulse Ox Last 24 Hr 97.9 F-98.9 F 64-76 17-20 124-145/56-69 91-98 - General Appearance General appearance: fatigue, frail EENT: ATNC Neck: supple Respiratory: clear Cardiology: regular rate, regular rhythm Gastrointestinal: normoactive bowel sounds, no tenderness Integumentary: no rash Neurologic: alert and oriented x3, CN 3-12 intact Psychiatric: mood/affect appropriate - Lab 02/03/17 04:45 02/03/17 04:45 Most recent lab results Calcium 8.6 MG/DL (8.5-10.1) 02/03/17 04:45 Magnesium 2.3 MG/DL (1.8-2.4) 02/03/17 04:45 Assessment and Plan (1) Hyperlipidemia Status: Chronic Current Visit: No (2) Advanced age Status: Chronic Current Visit: No (3) Diabetes mellitus Status: Chronic Current Visit: No Qualifiers: Diabetes mellitus type: type 2 Chronic kidney disease stage: on chronic dialysis (4) Debility Status: Chronic Current Visit: No (5) Risk for falls Status: Chronic Current Visit: No (6) CVA (cerebral vascular accident) Status: Chronic Current Visit: No (7) History of non-ST elevation myocardial infarction (NSTEMI) Status: Chronic Current Visit: Yes (8) End stage renal disease Status: Chronic Assessment and plan: Continue with peritoneal dialysis. Will use alternating 4.25 and 2.5% dextrose to help with the extremity swelling. Will use 2 L volumes 4 exchanges and 4 hour dwells. Current Visit: Yes
[2017-02-03] MEDS: FERROUS FUMARATE 50 MG TABLET PO SCH (16:47)
--- NOTE | 2017-02-03 16:49 | Hospitalist Progress Note ---
Assessment and Plan (1) ESRD on peritoneal dialysis Status: Acute Assessment and plan: Nephrology managing PD today Current Visit: Yes (2) History of non-ST elevation myocardial infarction (NSTEMI) Status: Chronic Current Visit: Yes Hospitalist: Subjective Interval history: No acute events overnight. Undergoing PD. Exam - Constitutional Vitals: Period Temp Pulse Resp BP Sys/Sung Pulse Ox Last 24 Hr 97.6 F-98.9 F 61-72 17-20 127-145/56-69 94-97 General appearance: over weight - Head Head exam: Present: normocephalic, atraumatic - Eye Eye exam: Present: EOMI Pupils: Present: RAY - ENT ENT exam: Present: normal exam - Neck Neck exam: Present: normal inspection - Respiratory Respiratory exam: Present: clear to auscultation bilaterally. Absent: rhonchi, wheezes - Cardiovascular Cardiovascular exam: Present: regular rate and rhythm - GI/Abdominal GI/Abdominal exam: Present: normal bowel sounds, soft. Absent: tenderness, rebound - Extremities Exam Extremities exam: Present: normal inspection - Back Exam Back exam: Present: normal inspection - Neurological Exam Neurological exam: Present: alert, oriented X3 - Psychiatric Psychiatric exam: Present: normal affect, normal mood - Skin Skin exam: Present: warm, intact Results - Labs CBC & BMP: 02/03/17 04:45 02/03/17 04:45 Quality Measures - Stroke Symptom Onset Unknown: No
[2017-02-03] MEDS: MEGESTROL 40 MG TABLET PO SCH (17:40)
[2017-02-04 06:57] LABS: Basophils % 0.2 % (0.0-0.8); Eosinophils # 0.1 10*3/uL (0.0-0.87); Eosinophils % 2.2 % (0.00-10.9); Hematocrit 28.6 VOL% (35.7-47.0); Hemoglobin 9.7 GM/DL (12.0-16.0); Immature Granulocytes % 0.6 %; Immature Granulocytes Absolute 0.04 #; Lymphocytes # 1.5 10*3/uL (1.4-4.0); Lymphocytes % 23.9 % (21.3-54.2); Mean Corpuscular HGB Conc 33.9 GM/DL (32-36); Mean Corpuscular Hemoglobin 33 PG (27-34); Mean Corpuscular Volume 97.3 FL (87-102); Mean Platelet Volume 11.1 FL (9.6-12.0); Monocytes # 0.5 10*3/uL (0.11-0.8); Neutrophils # 4.2 10*3/uL (1.4-7.4); Neutrophils % 66.1 % (38.7-73.9); Platelet Count 208 T/CUMM (130-400); Red Blood Count 2.94 MC/CUMM (3.8-5.5); White Blood Count 6.4 T/CUMM (4-12)
[2017-02-04 07:33] LABS: Magnesium 2.4 MG/DL (1.8-2.4); Osmolality,Calculated 293.7 MOS/KG (273-304); Potassium 5.5 MMOL/L (3.5-5.1)
[2017-02-04] MEDS: INSULIN LISPRO 100 UNIT/ML SUBCUT SCH ×4 (07:50→21:29)
[2017-02-04] MEDS: MULTIVITAMIN (BEROCCA) TABLET PO SCH (09:51)
[2017-02-04] MEDS: ISOSORBIDE DINITRATE 20 MG TABLET PO SCH ×3 (09:51→21:26)
[2017-02-04] MEDS: ALLOPURINOL 300 MG TABLET PO SCH (09:52)
[2017-02-04] MEDS: PANTOPRAZOLE 40 MG TABLET PO SCH (09:52)
[2017-02-04] MEDS: ASPIRIN EC 81 MG TABLET PO SCH (09:52)
[2017-02-04] MEDS: MEGESTROL 40 MG TABLET PO SCH (09:52)
[2017-02-04] MEDS: CLOPIDOGREL 75 MG TABLET PO SCH (09:52)
[2017-02-04] MEDS: PRAVASTATIN 40 MG TABLET PO SCH (09:52)
[2017-02-04] MEDS: CARVEDILOL 12.5 MG TABLET PO SCH ×2 (09:52→21:26)
[2017-02-04] MEDS: CALCIUM (CARBONATE)/VITAMIN D 600 MG-400 UNIT TABLET PO SCH (09:52)
[2017-02-04] MEDS: KETOROLAC 0.5% OPH SOLN 3 ML BOTTLE LEFT EYE SCH ×3 (10:04→21:25)
[2017-02-04] MEDS: BRIMONIDINE 0.15% OPH SOLN 1 DROP/DROPS BOTTLE BOTH EYES SCH ×2 (10:05→21:25)
[2017-02-04] MEDS: FERROUS FUMARATE 50 MG TABLET PO SCH (10:13)
--- NOTE | 2017-02-04 10:28 | Nephrology Progress Note ---
Nephrology - PN: Subj Interval history: The patient is resting comfortably no acute changes. Blood pressure stable. Continue with peritoneal dialysis. Family is at the bedside and are pleased with the progress. Exam (PN)-Nephrology - Vital Signs Vital signs: Period Temp Pulse Resp BP Sys/Sung Pulse Ox Last 24 Hr 97.6 F-98.4 F 61-65 17-18 112-130/58-74 94-98 - General Appearance General appearance: well-developed, well-nourished EENT: ATNC Neck: supple Respiratory: clear Cardiology: regular rate, regular rhythm Gastrointestinal: normoactive bowel sounds, no tenderness Integumentary: no rash Neurologic: alert and oriented x3 Musculoskeletal: no clubbing Psychiatric: mood/affect appropriate - Lab 02/04/17 06:38 02/04/17 06:38 Most recent lab results Calcium 9.0 MG/DL (8.5-10.1) 02/04/17 06:38 Magnesium 2.4 MG/DL (1.8-2.4) 02/04/17 06:38 Assessment and Plan (1) Hyperlipidemia Status: Chronic Current Visit: No (2) Advanced age Status: Chronic Current Visit: No (3) Diabetes mellitus Status: Chronic Current Visit: No Qualifiers: Diabetes mellitus type: type 2 Chronic kidney disease stage: on chronic dialysis (4) Debility Status: Chronic Current Visit: No (5) Risk for falls Status: Chronic Current Visit: No (6) CVA (cerebral vascular accident) Status: Chronic Current Visit: No (7) History of non-ST elevation myocardial infarction (NSTEMI) Status: Chronic Current Visit: Yes (8) End stage renal disease Status: Chronic Assessment and plan: Continue with peritoneal dialysis. Will use alternating 4.25 and 2.5% dextrose to help with the extremity swelling. Will use 2 L volumes 4 exchanges and 4 hour dwells. Current Visit: Yes
--- NOTE | 2017-02-04 15:42 | Hospitalist Progress Note ---
Assessment and Plan (1) ESRD on peritoneal dialysis Status: Acute Assessment and plan: Nephrology managing PD today Current Visit: Yes (2) History of non-ST elevation myocardial infarction (NSTEMI) Status: Chronic Current Visit: Yes Hospitalist: Subjective Interval history: No acute events overnight. Patient feels well. Undergoing PD dialysis. Exam - Constitutional Vitals: Period Temp Pulse Resp BP Sys/Sung Pulse Ox Last 24 Hr 97.6 F-98.4 F 61-65 17-18 112-130/58-74 96-98 General appearance: over weight - Head Head exam: Present: normocephalic, atraumatic - Eye Eye exam: Present: EOMI Pupils: Present: RAY - ENT ENT exam: Present: normal exam - Neck Neck exam: Present: normal inspection - Respiratory Respiratory exam: Present: clear to auscultation bilaterally. Absent: rhonchi, wheezes - Cardiovascular Cardiovascular exam: Present: regular rate and rhythm - GI/Abdominal GI/Abdominal exam: Present: normal bowel sounds, soft. Absent: tenderness, rebound - Extremities Exam Extremities exam: Present: normal inspection - Back Exam Back exam: Present: normal inspection - Neurological Exam Neurological exam: Present: alert, oriented X3 - Psychiatric Psychiatric exam: Present: normal affect, normal mood - Skin Skin exam: Present: warm, intact Results - Labs CBC & BMP: 02/04/17 06:38 02/04/17 06:38 Quality Measures - Stroke Symptom Onset Unknown: No
[2017-02-04] MEDS: ESTRADIOL 1 MG TABLET PO SCH (21:26)
[2017-02-05] MEDS: traMADol 50 MG TABLET PO PRN ×2 (03:23→09:59)
[2017-02-05 07:17] LABS: Basophils % 0.3 % (0.0-0.8); Eosinophils # 0.1 10*3/uL (0.0-0.87); Eosinophils % 1.9 % (0.00-10.9); Hematocrit 29.7 VOL% (35.7-47.0); Hemoglobin 10.1 GM/DL (12.0-16.0); Immature Granulocytes % 0.5 %; Immature Granulocytes Absolute 0.04 #; Lymphocytes # 1.5 10*3/uL (1.4-4.0); Lymphocytes % 20.3 % (21.3-54.2); Mean Corpuscular Hemoglobin 33 PG (27-34); Mean Corpuscular Volume 97.7 FL (87-102); Mean Platelet Volume 11.9 FL (9.6-12.0); Monocytes # 0.6 10*3/uL (0.11-0.8); NRBC # 0.02 10*3/uL; Neutrophils # 5.2 10*3/uL (1.4-7.4); Platelet Count 220 T/CUMM (130-400); Red Blood Count 3.04 MC/CUMM (3.8-5.5); White Blood Count 7.5 T/CUMM (4-12)
[2017-02-05 07:42] LABS: Magnesium 2.2 MG/DL (1.8-2.4); Osmolality,Calculated 287.1 MOS/KG (273-304); Potassium 4.7 MMOL/L (3.5-5.1)
[2017-02-05] MEDS: INSULIN LISPRO 100 UNIT/ML SUBCUT SCH ×4 (07:51→20:35)
[2017-02-05] MEDS: FERROUS FUMARATE 50 MG TABLET PO SCH (09:48)
[2017-02-05] MEDS: ISOSORBIDE DINITRATE 20 MG TABLET PO SCH ×3 (09:52→20:30)
[2017-02-05] MEDS: MEGESTROL 40 MG TABLET PO SCH (09:52)
[2017-02-05] MEDS: MULTIVITAMIN (BEROCCA) TABLET PO SCH (09:53)
[2017-02-05] MEDS: PRAVASTATIN 40 MG TABLET PO SCH (09:53)
[2017-02-05] MEDS: CLOPIDOGREL 75 MG TABLET PO SCH (09:53)
[2017-02-05] MEDS: ALLOPURINOL 300 MG TABLET PO SCH (09:53)
[2017-02-05] MEDS: CALCIUM (CARBONATE)/VITAMIN D 600 MG-400 UNIT TABLET PO SCH (09:53)
[2017-02-05] MEDS: PANTOPRAZOLE 40 MG TABLET PO SCH (09:53)
[2017-02-05] MEDS: ASPIRIN EC 81 MG TABLET PO SCH (09:54)
[2017-02-05] MEDS: CARVEDILOL 12.5 MG TABLET PO SCH ×2 (09:54→20:30)
[2017-02-05] MEDS: BRIMONIDINE 0.15% OPH SOLN 1 DROP/DROPS BOTTLE BOTH EYES SCH ×2 (09:54→20:30)
[2017-02-05] MEDS: KETOROLAC 0.5% OPH SOLN 3 ML BOTTLE LEFT EYE SCH ×3 (09:54→20:30)
--- NOTE | 2017-02-05 10:30 | Nephrology Progress Note ---
Nephrology - PN: Subj Interval history: Ms. Sommer is seen in follow-up of her end-stage renal disease on peritoneal dialysis. Peritoneal dialysis going well and her edema is improved. She complains of left shoulder pain and has decreased range of motion in it. She is not tender over the shoulder. We will x-ray her left shoulder and check a uric acid on blood that has already been drawn. Her legs are without edema today and her breathing is unlabored with a clear chest. Her biggest problem today seems to be left shoulder pain. Exam (PN)-Nephrology - Vital Signs Vital signs: Period Temp Pulse Resp BP Sys/Sung Pulse Ox Last 24 Hr 97.0 F-97.8 F 53-65 18-20 100-164/49-87 96-98 - Lab 02/05/17 05:38 02/05/17 05:38 Most recent lab results Calcium 9.0 MG/DL (8.5-10.1) 02/05/17 05:38 Magnesium 2.2 MG/DL (1.8-2.4) 02/05/17 05:38
--- NOTE | 2017-02-05 16:02 | XRay Report ---
History: Left shoulder pain Date: 02/05/2017 Study: Left shoulder 2 views Comparison exam: No previous There is no fracture or obvious dislocation. There is some prominent enthesophyte formation at the inferior aspect of the acromion. There is suspected osteopenia. Impression: No definite acute abnormality PROCEDURE INTERPRETED AT [facility] DEPARTMENT OF RADIOLOGY Final Report Signed by: Dr. Venus Ochoa
--- NOTE | 2017-02-05 17:37 | Hospitalist Progress Note ---
Assessment and Plan (1) Hyperkalemia Status: Acute Assessment and plan: Resolved at present, repeat BMP in a.m. Current Visit: Yes (2) History of non-ST elevation myocardial infarction (NSTEMI) Status: Chronic Assessment and plan: Stable, patient denies any recent chest pain. Current Visit: Yes (3) ESRD on peritoneal dialysis Status: Acute Assessment and plan: Nephrology managing, appreciate their assistance, Current Visit: Yes (4) Shoulder pain, left Status: Acute Assessment and plan: We will get a left shoulder x-ray and uric acid level. Current Visit: Yes Hospitalist: Subjective Interval history: Patient resting comfortably in bed, in no acute distress and no acute events overnight. Patient is receiving peritoneal dialysis 4 times daily and tolerating therapy well. She was admitted for generalized and left shoulder pain along with hyperkalemia. Her potassium is within normal limits today. Her daughter which is present, states that her mother's left arm was more swollen than usual as well as the left shoulder pain with decreased range of motion. She denies any trauma to this area and states she has not had this pain before. She is post DC approximately 2 weeks. Patient denies any nausea, vomiting, constipation, diarrhea, chest pain, shortness of breath or pain/ swelling in lower extremities. Exam - Constitutional Vitals: Period Temp Pulse Resp BP Sys/Sung Pulse Ox Last 24 Hr 96.8 F-97.7 F 53-70 16-20 100-164/49-87 95-98 General appearance: normal weight - Head Head exam: Present: normocephalic - Eye Eye exam: Present: EOMI Pupils: Present: RAY - Respiratory Respiratory exam: Present: clear to auscultation bilaterally - Cardiovascular Cardiovascular exam: Present: regular rate and rhythm - GI/Abdominal GI/Abdominal exam: Present: normal bowel sounds, soft - Expanded Left Upper Extremity General: Present: normal inspection (Normal-appearing shoulder with increased edema in distal part of the limb and hand. Nontender to palpation across the entire limb. No weakness noted bilaterally.) Shoulder exam: Present: normal inspection - Neurological Exam Neurological exam: Present: alert, oriented X3 - Psychiatric Psychiatric exam: Present: normal affect, normal mood - Skin Skin exam: Present: normal color, warm Results - Labs CBC & BMP: 02/05/17 05:38 02/05/17 05:38 Lab Results: I have reviewed the past 24 hour labs Quality Measures - Stroke Symptom Onset Unknown: No
[2017-02-06] MEDS: INSULIN LISPRO 100 UNIT/ML SUBCUT SCH ×4 (07:59→21:06)
[2017-02-06] MEDS: ISOSORBIDE DINITRATE 20 MG TABLET PO SCH ×3 (09:00→21:07)
[2017-02-06] MEDS: CLOPIDOGREL 75 MG TABLET PO SCH (09:01)
[2017-02-06] MEDS: CALCIUM (CARBONATE)/VITAMIN D 600 MG-400 UNIT TABLET PO SCH (09:01)
[2017-02-06] MEDS: MEGESTROL 40 MG TABLET PO SCH (09:02)
[2017-02-06] MEDS: MULTIVITAMIN (BEROCCA) TABLET PO SCH (09:02)
[2017-02-06] MEDS: CARVEDILOL 12.5 MG TABLET PO SCH ×2 (09:02→21:06)
[2017-02-06] MEDS: ALLOPURINOL 300 MG TABLET PO SCH (09:03)
[2017-02-06] MEDS: PANTOPRAZOLE 40 MG TABLET PO SCH (09:03)
[2017-02-06] MEDS: ASPIRIN EC 81 MG TABLET PO SCH (09:04)
[2017-02-06] MEDS: PRAVASTATIN 40 MG TABLET PO SCH (09:04)
[2017-02-06] MEDS: FERROUS FUMARATE 50 MG TABLET PO SCH (09:07)
--- NOTE | 2017-02-06 09:25 | Nephrology Progress Note ---
Nephrology - PN: Subj Interval history: Ms. Sommer is seen in follow-up of her end-stage renal disease on peritoneal dialysis. Her peritoneal dialysis going well. Her left shoulder is improved. Uric acid was low so the likelihood of this being acute gout is very small. Her shoulder x-ray demonstrated no dislocation etc. She has better range of motion of the shoulder today and it is not tender. She and her family are asking about going home and I think it is reasonable to be discharged. She will follow-up in the peritoneal dialysis clinic. Exam (PN)-Nephrology - Vital Signs Vital signs: Period Temp Pulse Resp BP Sys/Sung Pulse Ox Last 24 Hr 96.8 F-98.4 F 56-70 16-20 110-151/54-75 95-97 - Lab 02/05/17 05:38 02/05/17 05:38 Most recent lab results Calcium 9.0 MG/DL (8.5-10.1) 02/05/17 05:38 Magnesium 2.2 MG/DL (1.8-2.4) 02/05/17 05:38
--- NOTE | 2017-02-06 11:09 | Discharge Summary ---
<Rocio Flannery - Last Filed: 02/06/17 13:07> Hospital Course - Hospital Course Hospital Course: Ms. Sommer is a 81 y/o female with a history of previous stroke, [place] and end stage renal disease that presented to the [facility] ED on 02/01 for pain and swelling of her left arm and left leg that had began 3 days prior. Pt. family reported that patient recently had her peritoneal dialysis solution changed. Pt. had also been recently hospitalized and treated for a NSTEMI on 01/16. Pt. was seen by Dr. Jules at that time and a MRI was done. Pt. was evaluated in the ED and noted to have left upper extremity edema and generalized weakness. Pt. was also hyperkalemic Venous dopplers were negative. She was admitted for further evaluation and treatment of symptoms. Gentle hydration was provided. Nephrology was consulted to examine. MRI was repeated on this visit. No acute intracranial process. Pt. was noted to have inflammation and cord pressure at C1-C2. Patients daughter is concerned about her having discharge from vaginal area. I personally dont see any discharge. I will send off a UA and treat her with five days of ceftin. MRI of cervical spine shows bulging disc at multiple levels with central protrusion at C2-3 and C6-7 with broad base bulging at C3-4, C4-5, C5-6. Lumbar MRI bulging disc without herniation most prominent at L3-L4 mostly on the right. Pt. is to be evaluated by neurosurgery in [place] this tuesday. Pt. is stable for discharge home today F/U with Neurosurgery, ANISH Richard, and Dr. Best. Diagnosis - Discharge Diagnosis (1) ESRD on peritoneal dialysis Status: Chronic (2) Hyperkalemia Status: Resolved Specialty Discharge - Follow Up or Referrals Follow up with: dr anish [Other] - 2 [facility] - 02/09/17 8:00 am (c1-c2 spinal stenosis causing bilateral UE and LE weakness ) Daryl Best MD [Physician] - 2 Weeks Jersey Stanford Jr., MD [Physician] - 2 Weeks Discharge Plan - Discharge Data Disposition: Home Health Service - Discharge Medications New Cyproheptadine Tab [Periactin Tab] 4 mg PO TID #90 tablet Pantoprazole Tab [Protonix Tab] 40 mg PO DAILY #30 tablet Cefuroxime Tab [Ceftin] 500 mg PO BID #10 tablet Continue Pravastatin [Pravachol] 40 mg PO DAILY Allopurinol 300 mg PO DAILY Calcium (Carb)/Vit D 600-400 [Caltrate 600 + D] 1 tablet PO DAILY Brimonidine 0.15% Oph Soln [Alphagan P 0.15% Oph Soln] 1 drops BOTH EYES BID Ketorolac Tromethamine [Ketorolac 0.4% Oph Soln] 1 drop LEFT EYE TID Clopidogrel [Plavix] 75 mg PO DAILY #30 tablet hydrALAZINE TAB [Apresoline Tab] 50 mg PO TID #90 tablet Aspirin EC Tab 81 mg PO DAILY NIFEdipine [Nifedipine ER] 90 mg PO DAILY Prorenal D 1 tablet PO DAILY Carvedilol [Coreg] 12.5 mg PO BID #60 tablet Isosorbide Dinitrate [Isordil] 20 mg PO TID #90 tablet Discontinued Estradiol Tab [Estrace Tab] 1 mg PO MOWEFR Ferrous Fumarate [Ferrimin 150] 456 mg PO DAILY - Follow Up or Referral Follow Up: dr anish [Other] - 2 Weeks Neurosurgeon at [facility], [Other] - 02/09/17 8:00 am (c1-c2 spinal stenosis causing bilateral UE and LE weakness ) Daryl Best MD [Physician] - 2 Weeks Jersey Stanford Jr., MD [Physician] - 2 Weeks - Forms/Instructions Exam - Constitutional Vitals: Period Temp Pulse Resp BP Sys/Sung Pulse Ox Last 24 Hr 97.3 F-98.8 F 61-71 17-20 105-144/60-70 96-100 - Skin Skin exam: Present: normal color, warm, dry Discharge Results Procedures and tests throughout hospitalization: Pending Orders 02/07/17 04:00 MR cervical spine wo con IN AM MR lumbar spine wo con IN AM MR thoracic spine wo con IN AM 02/07/17 09:50 UA [Urinalysis] Stat Labs on day of discharge: Labs from last 24 hours 02/07/17 02/06/17 02/06/17 07:41 19:11 17:06 POC Glucose 250 H 144 H 175 H 02/06/17 12:02 POC Glucose 138 H DS: Provider Date of admission: 02/01/17 20:50 Primary care physician: . No PCP Attending physician on admission: Halle Lambert MD Consults: 02/01/17 21:23 Consult to Physician [CONS] Routine Comment: ESRD- on PD Consulting Provider: Jersey Stanford Jr. Person Notified: GULSHAN Date Notified: 02/02/17 Time Notified: 09:14 02/02/17 09:52 Consult to Physical Therapy [CONS] Routine Reason for Physical Therapy: Evaluate and Treat 02/06/17 11:02 Consult to Case Mgmt/Social Srvs [CONS] Routine Reason for Case Mgmt/Social Srvs: Home Health Consult Comment: overhead trapaze bar and yossi lift, aid, nurse pt and ot Discharging clinician: Rocio Flannery NP <Bessie Turk - Last Filed: 02/07/17 12:02> <Carmen Dallas - Last Filed: 02/07/17 13:32> Hospital Course - Time spent with patient Time with patient DS: Greater than 30 minutes (50 min) Discharge Plan - Discharge Data Condition at Discharge: Stable Discharge Diet: other (renal diet ) Activity: resume usual activities as tolerated Hygiene: no restrictions Weight Bearing at Discharge: full weight bearing - Forms/Instructions Additional Discharge Instructions: pt and ot, nurse, aid, trapeze bar for home and yossi lift. Continue with peritoneal dialysis. Will use alternating 4.25 and 2.5% dextrose to help with the extremity swelling. Will use 2 L volumes 4 exchanges and 4 hour. Need to copy all MRIs onto disc for patient to leave with her. Exam - Constitutional General appearance: normal weight, no acute distress - Respiratory Respiratory exam: Present: clear to auscultation bilaterally. Absent: rhonchi, wheezes - Cardiovascular Cardiovascular exam: Present: regular rate and rhythm. Absent: systolic murmur - GI/Abdominal GI/Abdominal exam: Present: normal bowel sounds, soft. Absent: tenderness - Neurological Exam Neurological exam: Present: alert, motor sensory deficit (left sided weakness) - Psychiatric Psychiatric exam: Present: depressed, flat affect
[2017-02-06] MEDS: KETOROLAC 0.5% OPH SOLN 3 ML BOTTLE LEFT EYE SCH ×3 (12:04→21:05)
[2017-02-06] MEDS: BRIMONIDINE 0.15% OPH SOLN 1 DROP/DROPS BOTTLE BOTH EYES SCH ×2 (12:05→21:05)
--- NOTE | 2017-02-06 14:08 | Magnetic Resonance Report ---
History: Left-sided weakness Date: 02/06/2017 Study: MRI brain without IV contrast Comparison exam: January 20, 2017 MRI and February 01, [address] brain The brain was imaged in 3 planes on the 1.5 Roxy magnet without IV contrast, to include diffusion, T2, FLAIR, gradient echo, and T1-weighted sequences. The ventricles are midline in position without evidence of hydrocephalus. There is no Chiari I malformation. 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 There is no evidence of acute ischemia on the diffusion sequence. There is a chronic left parietal area of ischemia measuring approximately 3.9 cm. There is no area of mass effect. There is a moderate amount of patchy increased FLAIR signal in the periventricular white matter compatible with changes of small vessel disease. There is no parenchymal hemorrhage. There is no extra-axial hematoma. There is a normal flow void in the superior sagittal sinus. There is no gross flow abnormality in the sun'aq of Melchor area. There is a small amount of patchy increased FLAIR and T2 signal in the seb without mass effect compatible with pontine small vessel disease as on the prior study. There is chronic hypertrophic change of the transverse atlantoaxial ligament and adjacent soft tissue structures which causes some severe spinal stenosis at this level with flattening of the cord. The cord measures approximately 4 mm AP diameter at this level. This is a chronic phenomena which was present on the previous MRI. Impression: No evidence of acute ischemia or acute intracranial process Chronic left MCA distribution parietal ischemia. 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 Chronic underlying inflammatory arthritis could also be a contributing factor. Does the patient have a history of rheumatoid arthritis? PROCEDURE INTERPRETED AT [facility] DEPARTMENT OF RADIOLOGY Final Report Signed by: Dr. Venus Ochoa
--- NOTE | 2017-02-06 15:05 | Hospitalist Progress Note ---
<Rocio Flannery - Last Filed: 02/06/17 15:01> Assessment and Plan - Time spent with patient Time spent with patient: Greater than 30 minutes (45 minutes discussing with the family MRI and how we should proceed with care for further evaluation of left upper and lower extremities weakness) (1) ESRD on peritoneal dialysis Status: Chronic Assessment and plan: will continue with peritoneal dialysis. Nephrology is following with care. Current Visit: Yes (2) Hyperkalemia Status: Resolved Current Visit: Yes (3) Left-sided weakness Status: Acute Assessment and plan: Family verbalized patient has been extremely weak on the left side for the last couple of weeks but seems to be progressively getting worse; more today. MRI was repeated and no acute ischemia was noted; chronic C1-C2 flattening of the cord was noted. Will get MRI of Thoracic, Cervical, and lumbar in the a.m. and referral to a neurosurgeon for followup. Will possibly discharge home in the a.m. after MRI pending results Current Visit: Yes Hospitalist: Subjective Interval history: Ms Sommer is seen today; resting comfortable in be without any acute distress. She verbalized having a good night. She did have one episode of vomiting once around 4 p.m. yesterday; the daughter at bedside verbalized that the patient some of medications without eating first and it caused her to become nauseated and vomited once; she was given zofran and did not have any more nausea or vomiting since. family was concerned about increased weakness on the left side in upper and lower extremities; repeat MRI was done. Noted to have a pinched nerve at cervical 1 and 2; appearing chronic but no evidence of acute intracranial ischemia Exam - Constitutional Vitals: Period Temp Pulse Resp BP Sys/Sung Pulse Ox Last 24 Hr 97.0 F-98.4 F 56-70 16-20 110-144/54-74 95-100 General appearance: normal weight - Head Head exam: Present: normal inspection - Eye Eye exam: Present: EOMI Pupils: Present: RAY - Neck Neck exam: Present: normal inspection - Respiratory Respiratory exam: Present: clear to auscultation bilaterally. Absent: wheezes - Cardiovascular Cardiovascular exam: Present: regular rate and rhythm - GI/Abdominal GI/Abdominal exam: Present: normal bowel sounds, soft. Absent: tenderness, rebound - Expanded Left Upper Extremity Shoulder exam: Present: normal inspection. Absent: pain, tenderness - Neurological Exam Neurological exam: Present: alert, oriented X3 - Psychiatric Psychiatric exam: Present: normal affect - Skin Skin exam: Present: normal color, warm, dry Results - Labs CBC & BMP: 02/05/17 05:38 02/05/17 05:38 Lab Results: I have reviewed the past 24 hour labs - Diagnostic Findings Procedure: MRI: report reviewed by me (No evidence of acute ischemia or acute intracranial process) Quality Measures - Stroke Symptom Onset Unknown: No Specialty Discharge - Follow Up or Referrals Follow up with: dr anish [Other] - 2 Weeks Daryl Best MD [Physician] - 2 Weeks Jersey Stanford Jr., MD [Physician] - 2 Weeks <Carmen Dallas - Last Filed: 02/06/17 15:49> Assessment and Plan (1) Left-sided weakness Status: Acute Assessment and plan: MRI of cervical, thoracic and lumbar spine in am, needs neurosurgery evaluation Current Visit: Yes (2) CVA (cerebral vascular accident) Status: Chronic Assessment and plan: nothing acute on MRI of brain, showed old stroke in left mca distribution Current Visit: No (3) History of non-ST elevation myocardial infarction (NSTEMI) Status: Chronic Assessment and plan: cont asa and plavix, ef 25% Current Visit: Yes (4) ESRD on peritoneal dialysis Status: Chronic Assessment and plan: change PD fluid to remove more fluid, nursing reports urinates very little Current Visit: Yes (5) Hyperkalemia Status: Resolved Assessment and plan: resolved Current Visit: Yes (6) Shoulder pain, left Status: Acute Assessment and plan: arthritis on xray, probably due to pinched nerve in neck Current Visit: Yes (7) Congestive heart failure Status: Acute Assessment and plan: reviewed echo ef 25%. no lasix needed for now Current Visit: No Hospitalist: Subjective Interval history: Patient seen and examined. Agree with above. Spoke with Dr. Ochoa from radiology feels that this pinching of C1-C2 is chronic and is just becoming more symptomatic. It would help to have more information for the family to decide to see if neurological intervention is needed. Exam - Constitutional Vitals: Period Temp Pulse Resp BP Sys/Sung Pulse Ox Last 24 Hr 97.0 F-98.4 F 56-70 16-20 110-144/54-74 95-100 General appearance: no acute distress - Cardiovascular Cardiovascular exam: Absent: systolic murmur - Extremities Exam Extremities exam: Present: normal inspection, normal capillary refill - Neurological Exam Neurological exam: Present: motor sensory deficit (Weakness in both UE and LE but worse on left) - Psychiatric Psychiatric exam: Present: normal mood Results - Labs CBC & BMP: 02/05/17 05:38 02/05/17 05:38
[2017-02-07] MEDS: INSULIN LISPRO 100 UNIT/ML SUBCUT SCH ×2 (09:17→14:14)
[2017-02-07] MEDS: FERROUS FUMARATE 50 MG TABLET PO SCH (09:18)
[2017-02-07] MEDS: ASPIRIN EC 81 MG TABLET PO SCH (09:18)
[2017-02-07] MEDS: MULTIVITAMIN (BEROCCA) TABLET PO SCH (09:18)
[2017-02-07] MEDS: ALLOPURINOL 300 MG TABLET PO SCH (09:18)
[2017-02-07] MEDS: PRAVASTATIN 40 MG TABLET PO SCH (09:18)
[2017-02-07] MEDS: CALCIUM (CARBONATE)/VITAMIN D 600 MG-400 UNIT TABLET PO SCH (09:18)
[2017-02-07] MEDS: MEGESTROL 40 MG TABLET PO SCH (09:18)
[2017-02-07] MEDS: PANTOPRAZOLE 40 MG TABLET PO SCH (09:18)
[2017-02-07] MEDS: CARVEDILOL 12.5 MG TABLET PO SCH (09:18)
[2017-02-07] MEDS: BRIMONIDINE 0.15% OPH SOLN 1 DROP/DROPS BOTTLE BOTH EYES SCH (09:19)
[2017-02-07] MEDS: CLOPIDOGREL 75 MG TABLET PO SCH (09:19)
[2017-02-07] MEDS: KETOROLAC 0.5% OPH SOLN 3 ML BOTTLE LEFT EYE SCH ×2 (09:19→14:18)
[2017-02-07] MEDS: ISOSORBIDE DINITRATE 20 MG TABLET PO SCH ×2 (09:19→14:17)
--- NOTE | 2017-02-07 10:10 | Nephrology Progress Note ---
Nephrology - PN: Subj Interval history: Patient is resting comfortably. No acute changes. Swelling has improved. Blood pressure stable. Exam (PN)-Nephrology - Vital Signs Vital signs: Period Temp Pulse Resp BP Sys/Sung Pulse Ox Last 24 Hr 97.3 F-98.8 F 61-71 17-20 105-144/60-71 96-100 - General Appearance General appearance: well-developed, well-nourished EENT: ATNC Neck: supple Respiratory: clear Cardiology: no edema, regular rate, regular rhythm Gastrointestinal: normoactive bowel sounds Integumentary: no rash Neurologic: alert and oriented x3 - Lab 02/05/17 05:38 02/05/17 05:38 Most recent lab results Calcium 9.0 MG/DL (8.5-10.1) 02/05/17 05:38 Magnesium 2.2 MG/DL (1.8-2.4) 02/05/17 05:38 Assessment and Plan (1) Hyperlipidemia Status: Chronic Current Visit: No (2) Advanced age Status: Chronic Current Visit: No (3) Diabetes mellitus Status: Chronic Current Visit: No Qualifiers: Diabetes mellitus type: type 2 Chronic kidney disease stage: on chronic dialysis (4) Debility Status: Chronic Current Visit: No (5) Risk for falls Status: Chronic Current Visit: No (6) CVA (cerebral vascular accident) Status: Chronic Current Visit: No (7) History of non-ST elevation myocardial infarction (NSTEMI) Status: Chronic Current Visit: Yes (8) End stage renal disease Status: Chronic Assessment and plan: Continue with peritoneal dialysis. Will use alternating 4.25 and 2.5% dextrose to help with the extremity swelling. Will use 2 L volumes 4 exchanges and 4 hour dwells. Current Visit: Yes Specialty Discharge - Follow Up or Referrals Follow up with: dr anish [Other] - 2 Weeks Daryl Best MD [Physician] - 2 Weeks Jersey Stanford Jr., MD [Physician] - 2 Weeks
[2017-02-07] MEDS ORDERED: cefTRIAXone 1,000 MG in SODIUM CHLORIDE 0.9% 100 ML IV SCH (11:30)
--- NOTE | 2017-02-07 12:48 | Magnetic Resonance Report ---
Exam: MR cervical spine wo con Date: 02/07/2017 4:00 AM Comparison: None Indication: Bilateral upper and lower extremity weakness Technical: 1.5 Roxy magnet Axial and sagittal images were obtained without gadolinium enhancement. Findings: The lower brainstem and cerebellum are intact. No obvious syrinx or myelomalacia change present. Degenerative marrow signal changes are present. C2/3:The exam reveals central bulging and small protrusion.. The nerve roots exit without entrapment or encroachment. C3/4:The exam reveals mild central bulging with some uncovertebral osteophytic spurring. The nerve roots exit without entrapment or encroachment. C4/5:The exam reveals broad-based bulging. Uncovertebral osteophytic spur is present.. The nerve roots exit without entrapment or encroachment. C5/6:The exam reveals broad-based bulging with uncovertebral osteophytic spurring. The nerve roots exit without entrapment or encroachment. C6-7:The exam reveals central bulge and protrusion effacing the ventral thecal sac. Uncovertebral osteophytic spurring is also present. The nerve roots exit without entrapment or encroachment. C7-T1:The exam reveals no obvious bulging or herniation. The nerve roots exit without entrapment or encroachment. Impression: 1. Bulging disc present at multiple levels with a component of central protrusion at C2-3 C6-7 with broad-based bulging at C3-4 C4-5 C5-6. PROCEDURE INTERPRETED AT [facility] DEPARTMENT OF RADIOLOGY Final Report Signed by: Dr. Marcelo Pratt
--- NOTE | 2017-02-07 12:52 | Magnetic Resonance Report ---
Exam: MR thoracic spine wo con Date: 02/07/2017 4:00 AM Indication: Bilateral upper and lower activity weakness Comparison: None Technical 1.5 Roxy Axial and sagittal imaging without gadolinium enhancement obtained. Findings: No obvious syrinx or myelomalacia change present. Degenerative marrow signal changes are present more prominent in the mid thoracic spine. Mild weightbearing deformity chronically present in the mid thoracic spine without acute fracture. This results in mild kyphosis. Discogenic disease is present throughout thoracic spine. No focal protrusion present. The exiting neural foramina canals are otherwise patent. Bulging is most prominent at T6-7 and T7 -8 T 8- 9. Low volume effusions present bilaterally. No obvious aneurysm. Impression: 1. Mild kyphosis thoracic spine with mild weightbearing deformity present at T7 with associated bulging of disc at T6-7 T7-8 T8-9 2. Degenerative spondylosis change of the thoracic spine. 3. Tiny low volume effusions bilaterally. PROCEDURE INTERPRETED AT [facility] DEPARTMENT OF RADIOLOGY Final Report Signed by: Dr. Marcelo Pratt
--- NOTE | 2017-02-07 12:56 | Magnetic Resonance Report ---
Exam: MR lumbar spine wo con Date: 02/07/2017 4:00 AM Comparison: None Indication: Bilateral upper and lower extremity weakness Technical: 1.5 Roxy magnet Axial and sagittal images were obtained without gadolinium enhancement. Findings: The cord terminates at the L1-2 level. Mild degenerative marrow signal changes are present. L1/2: No obvious disc desiccation are significant facet arthropathy.. The exam reveals no obvious bulging or herniation. L2/3: Mild disc desiccation with facet arthropathy The exam reveals no obvious bulging or herniation. L3/4: Disc desiccation is present. Facet arthropathy is noted. Asymmetric bulge towards the right subarticular recess as compared to the left. No focal protrusion otherwise noted.. L4/5: Disc desiccation present. Broad-based bulge is present. Facet arthropathy is noted. No focal herniation clearly demonstrated. L5/S1: Mild disc desiccation. Bulging of disc is present in a broad-based fashion. Facet arthropathy is noted.. The exam reveals no focal protrusion. Impression: 1. Disc desiccation at multiple levels 2. Bulging disc without focal herniation or protrusion clearly demonstrated narrowing is most prominent at the L3-4 level on the right. PROCEDURE INTERPRETED AT [facility] DEPARTMENT OF RADIOLOGY Final Report Signed by: Dr. Marcelo Pratt
[2017-02-07 14:26] VITALS: BP 116/64
[2017-02-07 14:59] LABS: Apearance,Urine CLOUDY (Clear); Bacteria,Urine Many /HPF (Few); Bilirubin,Urine Negative (Negative); Blood, Urine Negative (Negative); Glucose,Urine (UA) Negative (Negative); Ketones,Urine Negative (Negative); Nitrite,Urine Negative (Negative); Protein,Urine 100 MG/DL; Squamous Epithelial Cell,Urine Occasional /HPF (0-10); Urine Color Yellow (Yellow); Urine Specific Gravity 1.009 (1.001-1.035); Urine Urobilinogen < 2.0 EU/DL (0.2-1.0); WBC,Urine 148 /HPF (0-6)
== END 2017-02-07 16:10 | disposition home health service (06) | DRG 551 ==
LOC: N.ED 15:10 → N.EDINP 20:50 → SUATTDRO 20:50 → N.5E 22:59
PROVIDERS: ADMIT Family Medicine; ATTEND Internal Medicine

== ENCOUNTER 2017-03-05 02:06 | Inpatient (IN) ==
--- NOTE | 2017-03-05 02:38 | EKG Report ---
Stationary ECG Study [facility] ER Test Date: 03/05/2017 2:20:38 AM Pat Name: RICKY PATTERSON Department: Room: Gender: F [employer] Supervisor: : 1935 Requested by: Masoud Robles Order Number: [id number] Caitlyn MD: AYESHA DUBOIS Intervals [place] Rate: 70 P: 32 ID: [id number] QRS: -9 QRSD: 125 T: 138 QT: 430 QTc: 451 Interpretive Statements SINUS RHYTHM WITH SHORT ID INTERVAL LEFT VENTRICULAR HYPERTROPHY AND ST-T CHANGE Electronically Signed On 03-06-17 16:00:42 CDT by AYESHA DUBOIS [email or web address]
[2017-03-05] MEDS ORDERED: INSULIN REGULAR 100 UNIT/ML SUBCUT STA (02:42)
[2017-03-05 03:10] LABS: Basophils % 0.1 % (0.0-0.8); Hematocrit 33.5 VOL% (35.7-47.0); Hemoglobin 11.6 GM/DL (12.0-16.0); Immature Granulocytes % 1.7 %; Immature Granulocytes Absolute 0.32 #; Lymphocytes % 5.1 % (21.3-54.2); Mean Corpuscular HGB Conc 34.6 GM/DL (32-36); Mean Corpuscular Hemoglobin 34 PG (27-34); Mean Platelet Volume 12.2 FL (9.6-12.0); Monocytes # 0.6 10*3/uL (0.11-0.8); Monocytes % 3.3 % (1.7-12.7); NRBC # 0.05 10*3/uL; Neutrophils # 16.8 10*3/uL (1.4-7.4); Neutrophils % 89.8 % (38.7-73.9); Platelet Count 230 T/CUMM (130-400); Red Blood Count 3.42 MC/CUMM (3.8-5.5); Red Cell Distribution Width 15.3 % (9.3-17.3); White Blood Count 18.7 T/CUMM (4-12)
[2017-03-05] MEDS ORDERED: INSULIN REGULAR 100 UNIT/ML ONE (03:16)
[2017-03-05] MEDS ORDERED: ONDANSETRON 4 MG/2 ML VIAL IV STA (03:30)
[2017-03-05] MEDS ORDERED: ONDANSETRON 4 MG/2 ML VIAL ONE (03:30)
[2017-03-05 03:39] LABS: Blood Urea Nitrogen 93 MG/DL (7-18); Calcium 9.8 MG/DL (8.5-10.1); Glucose 388 MG/DL (74-106); Magnesium 2.7 MG/DL (1.8-2.4); Osmolality,Calculated 310.4 MOS/KG (273-304); Potassium 5.3 MMOL/L (3.5-5.1); Sodium 133 MMOL/L (136-145)
[2017-03-05 03:43] LABS: Troponin I Only 0.131 NG/ML (0.00-0.045)
[2017-03-05 04:29] LABS: Apearance,Urine Slightly Hazy (Clear); Bilirubin,Urine Negative (Negative); Blood, Urine Negative (Negative); Glucose,Urine (UA) Negative (Negative); Ketones,Urine Negative (Negative); Nitrite,Urine Negative (Negative); Protein,Urine 30 MG/DL; RBC,Urine <1 /HPF (0-4); Urine Color Yellow (Yellow); Urine Specific Gravity 1.013 (1.001-1.035); Urine Urobilinogen < 2.0 EU/DL (0.2-1.0)
[2017-03-05] MEDS ORDERED: cefTRIAXone 1,000 MG in SODIUM CHLORIDE 0.9% 100 ML IV STA (04:43)
--- NOTE | 2017-03-05 04:49 | Emergency Department Note ---
IHunter Hilary, am scribing for, and in the presence of, Masoud Robles MD 02:33 . Travis Billy Hans, MD, personally performed the services described in this documentation, ascribed by Christie Harrison in my presence, and it is both accurate and complete 449 . Arrival - Arrival Chief Complaint: Shortness of Breath Stated Complaint: SOB/ "not feeling good" ED Nursing Triage Note: Patient to ED via EMS from home with c/o SOB and "not feeling good" that started all of a sudden while laying in bed. EMS reports patient glucose is [address] depression in 12 lead EKG. Patient s/s subsided en route to ED with EMS and upon arrival to ED, patient denies SOB or CP and states she feels back to her normal. Mode of Arrival: Stretcher Limitations: No Limitations Source: Patient, Family, RN Notes Reviewed Time Seen by Provider: 03/05/17 02:12 - History of Present Illness HPI Narrative: Pt is a 81 y/o female brought into the ED via EMS with c/o of SOB and "not feeling good" which onset suddenly while laying in bed. EMS reports patient glucose is [address] depression in 12 lead EKG. Patient s/s subsided en route to ED with EMS and pt denies any pain or SOB in the ED. Pt reports that she felt like she "couldn't catch her breath" and she states she has had these symptoms before. Pt is being treated for a pinched nerve in her neck and she has been on steroids for the past 3 days. No other complaints or problems stated in the ED. Onset (ago): minute(s) Consistency: now resolved Severity: similar to previous episodes Allergies/Adverse Reactions: Allergies Allergy/AdvReac Type Severity Reaction Status Date / Time JACKIE Inhibitors AdvReac Intermediate Cramping Verified 03/05/17 02:23 of the Muscles hydrocodone [From Lortab] AdvReac Intermediate Confusion Verified 03/05/17 02:23 codeine AdvReac Nausea Verified 03/05/17 02:23 Home Medications: Home Medications Medication Instructions Recorded Confirmed Type Allopurinol 300 mg PO DAILY 05/03/15 02/01/17 History Calcium (Carb)/Vit D 600-400 1 tablet PO DAILY 05/03/15 02/01/17 History [Caltrate 600 + D] Pravastatin [Pravachol] 40 mg PO DAILY 05/03/15 02/01/17 History Brimonidine 0.15% Oph Soln 1 drops BOTH EYES BID 05/17/15 02/01/17 History [Alphagan P 0.15% Oph Soln] Ketorolac Tromethamine [Ketorolac 1 drop LEFT EYE TID 01/16/17 02/01/17 History 0.4% Oph Soln] Prorenal D 1 tablet PO DAILY 01/16/17 02/01/17 History Carvedilol [Coreg] 12.5 mg PO BID #60 tablet 01/19/17 02/01/17 Rx Clopidogrel [Plavix] 75 mg PO DAILY #30 tablet 01/19/17 02/01/17 Rx Isosorbide Dinitrate [Isordil] 20 mg PO TID #90 tablet 01/19/17 02/01/17 Rx hydrALAZINE TAB [Apresoline Tab] 50 mg PO TID #90 tablet 01/19/17 02/01/17 Rx Aspirin EC Tab 81 mg PO DAILY 02/01/17 02/01/17 History NIFEdipine [Nifedipine ER] 90 mg PO DAILY 02/01/17 02/01/17 History Cyproheptadine Tab [Periactin Tab] 4 mg PO TID #90 tablet 02/06/17 Rx Pantoprazole Tab [Protonix Tab] 40 mg PO DAILY #30 tablet 02/06/17 Rx Cefuroxime Tab [Ceftin] 500 mg PO BID #10 tablet 02/07/17 Rx Review of System - Review of System 12 point system: reviewed and no additional remarkable complaints except as stated - Review of System Constitutional: Absent: fever Respiratory: Present: respiratory distress (SOB) Gastrointestinal: Absent: abdominal pain Medical,Surgical,& Family Hx - Medical History Cardio: History of: Cardiac Dysrhythmia, Hypertension, Cardiovascular Problems Psychological: History of: Anxiety Disorders, Depression (refused lexapro) Neurology: History of: Cerebrovascular Accident, Cerebral Palsy No history of: Brain Aneurysm, Cerebral Hemorrhage, Dementia, Migraine, Multiple Sclerosis, Parkinson's Disease, Peripheral Neuropathy, Seizures, TIA, Vertigo, Neurologocal Cancer HEENT: History of: Glaucoma Comment Only: Eye Problem (left eye surgery x 3 in [place]) Endocrine: History of: Diabetes Mellitus (NIDDM), Dyslipidemia Rheumatology: History of;: Gout Renal: History of: Dialysis (peritoneal dialysis every night), Renal Failure, Renal Problems Gastrointestinal: History of: GERD, Gastrointestinal Bleed Hematology: No history of: Blood Transfusion Reaction Other: No history of: Anesthesia Reactions - Surgical History Cardiac Surgeries: Sugical HX of: Carotid Endarterectomy Neurologic Surgeries: Patient denies: Brain Aneurysm, Cerebral Hemorrhage, Neurologic Surgery HEENT Surgeries: Surgical HX of: Carotid Endarterectomy Abdominal Surgeries: Surgical HX of: Appendectomy, Cholecystectomy, Colonoscopy , EGD Reproductive Surgeries: Surgical HX of;: Hysterectomy - Family History Family History: Reports;: Family Heart Disease (in brothers and sisters.), Family Hypertension (multiple family members.), Family Stroke (mother of complications of strokes.) - Social History Smoking Status: Never smoker Frequency of Alcohol Use: None Type of Drug Use: None Exam Vital Signs: Vital Signs Temperature 97.4 F L 03/05/17 02:06 Pulse Rate 67 03/05/17 02:06 Respiratory Rate 18 03/05/17 02:06 Blood Pressure 121/69 03/05/17 02:06 O2 Sat by Pulse Oximetry 98 03/05/17 02:06 - General General appearance: alert, in no apparent distress - Head Head exam: Present: atraumatic, normocephalic - Eye Eye exam: Present: normal appearance, PERRL, EOMI - ENT ENT exam: Present: mucous membranes moist, TM's normal bilaterally. Absent: mucous membranes dry - Neck Neck exam: Present: full ROM, trachea midline. Absent: tenderness - Chest Chest inspection: Present: symmetric chest wall rise. Absent: tenderness - Respiratory Respiratory exam: Present: normal lung sounds bilaterally. Absent: respiratory distress - Cardiovascular Cardiovascular exam: Present: regular rate, normal rhythm, normal heart sounds. Absent: murmur, rubs, gallop - Abdominal Exam Abdominal exam: Present: soft, normal bowel sounds. Absent: distention, tenderness - Extremities Exam Extremities exam: Present: full ROM. Absent: tenderness - Back Exam Back exam: Present: full ROM. Absent: tenderness - Neurological Exam Neurological exam: Present: alert, oriented X3, CN II-XII intact. Absent: motor sensory deficit - Psychiatric Psychiatric exam: Present: normal affect, normal mood - Skin Skin exam: Present: warm, dry, intact, normal color. Absent: rash Course Course Narrative: This patient was evaluated in the ER with lab work, urinalysis, EKG, and chest x -ray. She had some nonspecific ST changes and her troponin was elevated at 0.131 but this was significantly decreased from this admission and January about a month ago when she had a non-ST elevation MD and her troponin peaked at 8.4. Her symptoms were dyspnea and they did improve on transfer but she also has hyperglycemia and a urinary tract infection. She was given a gram of Rocephin in the ER and I discussed her presentation with hospitalist on-call who agreed to see her for further workup and treatment. Results - Labs CBC & BMP: 03/05/17 02:58 03/05/17 02:58 Lab Results: I have reviewed the patients labs Labs: Laboratory Tests 03/05/17 03/05/17 02:58 03:01 WBC 18.7 H RBC 3.42 L Hgb 11.6 L Hct 33.5 L Plt Count 230 MPV 12.2 H Neut % (Auto) 89.8 H Lymph % (Auto) 5.1 L Neut # (Auto) 16.8 H Lymph # (Auto) 1.0 L POC Glucose 334 H Laboratory Tests 03/05/17 02:58 Sodium 133 L Potassium 5.3 H Chloride 97 L Carbon Dioxide 17 L Anion Gap 24.3 H BUN 93 H Creatinine 6.50 H Glucose 388 H Calculated Osmolality 310.4 H Magnesium 2.7 H Troponin I 0.131 H Laboratory Tests 03/05/17 03/05/17 03/05/17 02:58 04:17 04:21 POC Glucose 352 H B-Natriuretic Peptide 94 Urine pH 5.0 Ur Specific Minto 1.013 Urine Protein 30 Urine Urobilinogen < 2.0 H Urine RBC <1 Disposition Clinical Impression: Urinary tract infection, Hyperglycemia Case discussed with: patient, patient's family Disposition: Still a Patient Condition: Stable Time of Disposition: 04:49
[2017-03-05] MEDS ORDERED: cefTRIAXone 1,000 MG VIAL ONE (05:07)
[2017-03-05] MEDS ORDERED: SODIUM CHLORIDE 0.9% 100 ML IV ONE (05:07)
--- NOTE | 2017-03-05 05:45 | Hospitalist History & Physical ---
Assessment and Plan (1) Dyspnea Status: Acute Assessment and plan: Patient may have multiple reason for dyspnea she has an similar disease but does not seem to be acutely all volume overload although no weight is available. Cardiomyopathy with a low ejection fraction and pulmonary hypertension and valvular disease with MR and TR possible reason for dyspnea. Current Visit: Yes (2) Leukocytosis Status: Acute Assessment and plan: Leukocytosis noted could be due to steroid but has history of UTI in noted urinary symptoms with the WBC in urine analysis urine culture to follow patient was given Rocephin will continue Current Visit: Yes (3) End stage renal disease Status: Chronic Assessment and plan: Consult renal for help with the peritoneal dialysis Current Visit: Yes (4) Hyperglycemia Status: Acute Assessment and plan: Patient has hypoglycemia likely due to steroid with history of ?diabetes not on any insulin or oral hypoglycemic medicine. Recent steroid use may be contributing to hypoglycemia monitored blood sugar and provide coverage with the short-acting insulin Current Visit: Yes (5) Congestive heart failure Status: Chronic Assessment and plan: Patient seem to be compensated as far as volume status is concerned Current Visit: No (6) Troponin level elevated Status: Acute Assessment and plan: Elevated troponin may be due to end-stage renal disease status and cardiomyopathy. No chest pain reported will consult cardiology to assist with management Current Visit: Yes (7) Bulging discs Status: Chronic Assessment and plan: Continue cervical collar. Patient is allergic to hydrocodone will give morphine short-acting as needed for pain Current Visit: Yes History of Present Illness Chief complaint: Shortness of breath History of present illness: Ms. Sommer is a 81 year old female with history of end-stage renal disease on peritoneal dialysis for about a year. She also has history of CVA coronary artery disease and ? diabetes mellitus. She was admitted with NSTEMI and was treated medically. She had echocardiogram at that time and noted to have concentric LVH with Severely reduced LV systolic function with normal sherry base but apical dyskinesis and distal anterior and inferior severe hypokinesis; the estimated ejection fraction was 25% Probable 3+ mitral and tricuspid regurgitation with RVSP 56 mmHg plus RAP suggesting moderate to severe pulmonary hypertension. Patient also has history of bulging cervical and lumbar disc she has c-collar and had been on a steroid to the last dose of oral stride yesterday. She was brought to [facility] with the shortness of breath for 2 days. According to family patient has been on peritoneal dialysis for about a year and she still makes urine. She had not been having good urine output last few days except yesterday dialysate was changed to 4.25% dextrose and she had about 1248 cc of ultrafiltration. She has no chest pain nausea vomiting diarrhea or fever she denies any abdominal pain. She reports clear ultrafiltrate from peritoneal dialysis. She has been eating well with good appetite. She has some dysuria and was recently treated for UTI with mixed organisms. She was seen in the ER and underwent evaluation. Her white count was 18.7 hemoglobin 11 point hematocrit 33.5 BUN 93 creatinine 6.5 glucose is 388 troponin 0 0.13. Her troponin peaked at 10.9 last month when she suffered NSTEMI. I was called to admit the patient. Home Medications Medication Instructions Recorded Confirmed Type Allopurinol 300 mg PO DAILY 05/03/15 02/01/17 History Calcium (Carb)/Vit D 600-400 1 tablet PO DAILY 05/03/15 02/01/17 History [Caltrate 600 + D] Pravastatin [Pravachol] 40 mg PO DAILY 05/03/15 02/01/17 History Brimonidine 0.15% Oph Soln 1 drops BOTH EYES BID 05/17/15 02/01/17 History [Alphagan P 0.15% Oph Soln] Ketorolac Tromethamine [Ketorolac 1 drop LEFT EYE TID 01/16/17 02/01/17 History 0.4% Oph Soln] Prorenal D 1 tablet PO DAILY 01/16/17 02/01/17 History Carvedilol [Coreg] 12.5 mg PO BID #60 tablet 01/19/17 02/01/17 Rx Clopidogrel [Plavix] 75 mg PO DAILY #30 tablet 01/19/17 02/01/17 Rx Isosorbide Dinitrate [Isordil] 20 mg PO TID #90 tablet 01/19/17 02/01/17 Rx hydrALAZINE TAB [Apresoline Tab] 50 mg PO TID #90 tablet 01/19/17 02/01/17 Rx Aspirin EC Tab 81 mg PO DAILY 02/01/17 02/01/17 History NIFEdipine [Nifedipine ER] 90 mg PO DAILY 02/01/17 02/01/17 History Cyproheptadine Tab [Periactin Tab] 4 mg PO TID #90 tablet 02/06/17 Rx Pantoprazole Tab [Protonix Tab] 40 mg PO DAILY #30 tablet 02/06/17 Rx Cefuroxime Tab [Ceftin] 500 mg PO BID #10 tablet 02/07/17 Rx Allergies Allergy/AdvReac Type Severity Reaction Status Date / Time JACKIE Inhibitors AdvReac Intermediate Cramping Verified 03/05/17 02:23 of the Muscles hydrocodone [From Lortab] AdvReac Intermediate Confusion Verified 03/05/17 02:23 codeine AdvReac Nausea Verified 03/05/17 02:23 Medical,Surgical,& Family Hx - Medical History Cardio: History of: Cardiac Dysrhythmia, Hypertension, Cardiovascular Problems Psychological: History of: Anxiety Disorders, Depression (refused lexapro) Neurology: History of: Cerebrovascular Accident, Cerebral Palsy No history of: Brain Aneurysm, Cerebral Hemorrhage, Dementia, Migraine, Multiple Sclerosis, Parkinson's Disease, Peripheral Neuropathy, Seizures, TIA, Vertigo, Neurologocal Cancer HEENT: History of: Glaucoma Comment Only: Eye Problem (left eye surgery x 3 in [place]) Endocrine: History of: Diabetes Mellitus (NIDDM), Dyslipidemia Rheumatology: History of;: Gout Renal: History of: Dialysis (peritoneal dialysis every night), Renal Failure, Renal Problems Gastrointestinal: History of: GERD, Gastrointestinal Bleed Hematology: No history of: Blood Transfusion Reaction Other: No history of: Anesthesia Reactions - Surgical History Cardiac Surgeries: Sugical HX of: Carotid Endarterectomy Neurologic Surgeries: Patient denies: Brain Aneurysm, Cerebral Hemorrhage, Neurologic Surgery HEENT Surgeries: Surgical HX of: Carotid Endarterectomy Abdominal Surgeries: Surgical HX of: Appendectomy, Cholecystectomy, Colonoscopy , EGD Reproductive Surgeries: Surgical HX of;: Hysterectomy - Family History Family History: Reports;: Family Heart Disease (in brothers and sisters.), Family Hypertension (multiple family members.), Family Stroke (mother of complications of strokes.) - Social History Smoking Status: Never smoker Frequency of Alcohol Use: None Type of Drug Use: None 12 point system: reviewed and no additional remarkable complaints except as stated Review of systems: Comprehensive review of system was done and negative unless indicated in HPI Exam - Constitutional Vitals: Period Temp Pulse Resp BP Sys/Sung Pulse Ox Last 24 Hr 97.4 F-97.4 F 67-67 18-18 121-121/69-69 98-98 General appearance: no acute distress, no over weight - Head Head exam: Present: normal inspection, normocephalic, atraumatic - Eye Eye exam: Present: EOMI, conjunctival injection Pupils: Present: RAY, normal accommodation - ENT ENT exam: Present: normal exam, normal oropharynx - Neck Neck exam: Present: other (Cervical collar on) - Respiratory Respiratory exam: Present: clear to auscultation bilaterally (Equal air entry bilaterally). Absent: accessory muscle use, rales, rhonchi - Cardiovascular Cardiovascular exam: Present: regular rate and rhythm. Absent: tachycardia - GI/Abdominal GI/Abdominal exam: Present: normal bowel sounds, soft. Absent: distended, tenderness - Extremities Exam Extremities exam: Present: edema (No edema of lower extremities) - Neurological Exam Neurological exam: Present: alert, oriented X3 Results - Labs CBC & BMP: 03/05/17 02:58 03/05/17 02:58 Lab Results: I have reviewed the past 24 hour labs
[2017-03-05] MEDS ORDERED: GLUCAGON 1 MG VIAL IM PRN (05:55)
[2017-03-05] MEDS ORDERED: ACETAMINOPHEN 325 MG TABLET PO PRN (05:55)
[2017-03-05] MEDS ORDERED: ONDANSETRON 4 MG/2 ML VIAL IV PRN (05:55)
[2017-03-05] MEDS ORDERED: DEXTROSE 50% 25 GM/50 ML SYRINGE IV PRN (05:55)
[2017-03-05] MEDS ORDERED: HEPARIN 5,000 UNIT/1 ML VIAL SUBCUT SCH (06:00)
[2017-03-05] MEDS ORDERED: MORPHINE IR 15 MG TABLET PO PRN (06:04)
--- NOTE | 2017-03-05 08:35 | XRay Report ---
XR chest 1V portable Indication: Shortness of breath Comparison: AP chest 02/01/2017. Technique: Portable AP chest was performed. Findings: Limited inspiration is present. Heart size is normal. Pulmonary vasculature appears within normal limits. No significant abnormality of the mediastinal contours demonstrated. A band of atelectasis within the mid to lower left chest is suggested. Lungs are otherwise clear. Bones and soft tissues demonstrate no significant abnormalities. Impression: 1. No acute findings are suggested on the expiratory film provided. 03/05/2017 8:32 AM PROCEDURE INTERPRETED AT [facility] [place] DEPARTMENT OF RADIOLOGY Final Report Signed by: Dr. Maxime Malhotra
[2017-03-05 08:42] LABS: Calcium 9.6 MG/DL (8.5-10.1); Osmolality,Calculated 308.2 MOS/KG (273-304); Potassium 5.4 MMOL/L (3.5-5.1)
[2017-03-05] MEDS: CLOPIDOGREL 75 MG TABLET PO SCH ×2 (09:27→09:31)
[2017-03-05] MEDS: INSULIN LISPRO 100 UNIT/ML SUBCUT SCH ×4 (09:27→23:04)
[2017-03-05] MEDS: CARVEDILOL 12.5 MG TABLET PO SCH ×2 (09:27→21:22)
[2017-03-05] MEDS: PANTOPRAZOLE 40 MG TABLET PO SCH (09:28)
[2017-03-05] MEDS: ASPIRIN EC 81 MG TABLET PO SCH (09:28)
[2017-03-05] MEDS: CALCIUM (CARBONATE)/VITAMIN D 600 MG-400 UNIT TABLET PO SCH (09:28)
[2017-03-05] MEDS: ALLOPURINOL 300 MG TABLET PO SCH (09:28)
[2017-03-05] MEDS: ISOSORBIDE DINITRATE 20 MG TABLET PO SCH ×3 (09:28→21:22)
[2017-03-05] MEDS: cefTRIAXone 1,000 MG in SODIUM CHLORIDE 0.9% 100 ML IV SCH (09:29)
--- NOTE | 2017-03-05 10:14 | Cardiology Consult Note ---
Assessment and Plan - Time spent with patient Time spent with patient: Greater than 30 minutes (Examination, interview, chart review, orders and documentation.) (1) Ischemic cardiomyopathy Status: Chronic Current Visit: Yes (2) Mitral regurgitation Status: Chronic Current Visit: Yes Qualifiers: Cardiac valve disease etiology: nonrheumatic Qualified Code(s): I34.0 - Nonrheumatic mitral (valve) insufficiency (3) Pulmonary hypertension Status: Chronic Current Visit: Yes (4) Atelectasis of both lungs Status: Acute Assessment and plan: Suspect this is due to her neck nonambulatory status and may represent progression of her axial skeletal disease. 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 Sommer is a 81 year old female nonambulatory female with known severe pulmonary hypertension estimated at greater than 56 mmHg and ischemic cardiomyopathy ejection fraction of 25% and severe mitral and tricuspid regurgitation. She is not amatory secondary to axial skeletal disease and muscular weakness. She has end-stage renal disease and is on peritoneal dialysis she is admitted to the hospitalist service with dyspnea. Boilermaker Fitter been asked to see. Her primary rehabilitation services director Dr. Choco Abreu. Patient has been hospitalized several times in last few months most recent echocardiogram done 06/2017 showed ejection fraction of 25% with multiple regional wall motion abnormalities found severe mitral regurgitation severe tricuspid regurgitation aortic sclerosis severe LVH and pulmonary hypertension with right ventricular systolic pressure estimated to be 56 mmHg. I have reviewed the patient's laboratories and chest x-ray saw and examined her in the room with at least 5 other family members. She denies any chest pain. She has no acute EKG changes. Her biomarkers are noted. CC: Sandeep Infante MD - Home Medications and Allergies Home Medications: Home Medications Medication Instructions Recorded Confirmed Type Allopurinol 300 mg PO DAILY 05/03/15 03/05/17 History Calcium (Carb)/Vit D 600-400 1 tablet PO DAILY 05/03/15 03/05/17 History [Caltrate 600 + D] Brimonidine 0.15% Oph Soln 1 drops BOTH EYES BID 05/17/15 03/05/17 History [Alphagan P 0.15% Oph Soln] Ketorolac Tromethamine [Ketorolac 1 drop LEFT EYE TID 01/16/17 03/05/17 History 0.4% Oph Soln] Prorenal D 1 tablet PO DAILY 01/16/17 03/05/17 History Carvedilol [Coreg] 12.5 mg PO BID #60 tablet 01/19/17 03/05/17 Rx Isosorbide Dinitrate [Isordil] 20 mg PO TID #90 tablet 01/19/17 03/05/17 Rx hydrALAZINE TAB [Apresoline Tab] 50 mg PO TID #90 tablet 01/19/17 03/05/17 Rx Aspirin EC Tab 81 mg PO DAILY 02/01/17 03/05/17 History NIFEdipine [Nifedipine ER] 90 mg PO DAILY 02/01/17 03/05/17 History Cyproheptadine Tab [Periactin Tab] 4 mg PO TID #90 tablet 02/06/17 03/05/17 Rx Pantoprazole Tab [Protonix Tab] 40 mg PO DAILY #30 tablet 02/06/17 03/05/17 Rx predniSONE TAB [PredniSONE] 20 mg PO BID 03/05/17 03/05/17 History Allergies/Adverse Reactions: Allergies Allergy/AdvReac Type Severity Reaction Status Date / Time JACKIE Inhibitors AdvReac Intermediate Cramping Verified 03/05/17 08:37 of the Muscles hydrocodone [From Lortab] AdvReac Intermediate Confusion Verified 03/05/17 08:37 codeine AdvReac Nausea Verified 03/05/17 08:37 - Constitutional Constitutional: Present: weight loss, other (Nonambulatory). Absent: anorexia, fever(s) - EENT Eyes: Absent: blurry vision Ears: Absent: decreased hearing Nose, mouth and throat: Absent: dysphagia, lip swelling, nasal congestion - Cardiovascular Cardiovascular: Present: dyspnea, edema, orthopnea. Absent: palpitations - Respiratory Respiratory: Present: cough, dyspnea - Gastrointestinal Gastrointestinal: Present: bloating. Absent: cramping, diarrhea, early satiety - Genitourinary Genitourinary: Absent: flank pain - Musculoskeletal Musculoskeletal: Present: arthralgias, back pain. Absent: joint swelling - Neurological Neurological: Present: abnormal gait (She is nonambulatory and bedbound) - Psychiatric Psychiatric: Absent: anxiety, depression - Endocrine Endocrine: Present: fatigue. Absent: cold intolerance, heat intolerance - Hematologic/Lymphatic Hematologic/Lymphatic: Absent: easy bleeding, easy bruising Medical,Surgical,& Family Hx - Medical History Cardio: History of: CHF, CAD, Hypertension, [place], Valvular Heart Disease, Cardiovascular Problems Psychological: History of: Anxiety Disorders, Depression (refused lexapro) Neurology: History of: Cerebrovascular Accident, Cerebral Palsy No history of: Brain Aneurysm, Cerebral Hemorrhage, Dementia, Migraine, Multiple Sclerosis, Parkinson's Disease, Peripheral Neuropathy, Seizures, TIA, Vertigo, Neurologocal Cancer HEENT: History of: Glaucoma Comment Only: Eye Problem (left eye surgery x 3 in [place]) Endocrine: History of: Diabetes Mellitus (NIDDM), Dyslipidemia Rheumatology: History of;: Gout Renal: History of: Dialysis (peritoneal dialysis every night), Renal Failure, Renal Problems Gastrointestinal: History of: GERD, Gastrointestinal Bleed Hematology: No history of: Blood Transfusion Reaction Other: History of: Miscellaneous Medical Problems (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) No history of: Anesthesia Reactions - Surgical History Cardiac Surgeries: Sugical HX of: Carotid Endarterectomy Neurologic Surgeries: Patient denies: Brain Aneurysm, Cerebral Hemorrhage, Neurologic Surgery HEENT Surgeries: Surgical HX of: Carotid Endarterectomy Abdominal Surgeries: Surgical HX of: Appendectomy, Cholecystectomy, Colonoscopy , EGD Reproductive Surgeries: Surgical HX of;: Hysterectomy - Family History Family History: Reports;: Family Heart Disease (in brothers and sisters.), Family Hypertension (multiple family members.), Family Stroke (mother of complications of strokes.) - Social History Smoking Status: Never smoker Frequency of Alcohol Use: None Type of Drug Use: None Functional capacity: bed bound Physical Examination Vital Signs Temp Pulse Resp BP Pulse Ox 97.4 F L 67 18 121/69 98 03/05/17 02:06 03/05/17 02:06 03/05/17 02:06 03/05/17 02:06 03/05/17 02:06 General: Present: Other (Chronically ill-appearing she has a neck brace on she does not move her upper extremities are both supported by pillows the patient moved only her eyes during my examination) HEENT: Present: Pallor Neck: Present: Other (Neck brace in place, soft cervical collar) Cardiac: Present: Regular Rate, S1/S2, S4, Systolic Murmur (Mild murmur radiating to the axilla no thrill). Absent: Diastolic Murmur Lungs: Present: Normal Exam (Very shallow respirations but no rales) Abdomen: Present: Soft, Active Bowel Sounds (PD access looks clean and dry) Gait: Present: Other (Nonambulatory she has extremely atrophic peripheral musculature) Extremities: Absent: Edema Result/EKG - Labs CBC & BMP: 03/05/17 02:58 03/05/17 07:47 Labs: Laboratory Results - last 24 hr 03/05/17 03/05/17 03/05/17 02:58 02:58 02:58 WBC 18.7 H RBC 3.42 L Hgb 11.6 L Hct 33.5 L MCV 98.0 MCH 34 MCHC 34.6 RDW 15.3 Plt Count 230 MPV 12.2 H Neut % (Auto) 89.8 H Lymph % (Auto) 5.1 L [place] % (Auto) 3.3 Eos % (Auto) 0.0 Baso % (Auto) 0.1 Neut # (Auto) 16.8 H Lymph # (Auto) 1.0 L [place] # (Auto) 0.6 Eos # (Auto) 0.0 Baso # (Auto) 0.0 Immature Gran % 1.7 Nucleated RBC % 0.3 Immature Gran # 0.32 Nucleated RBCs # 0.05 Immature Plt Fraction 0.0 Sodium 133 L Potassium 5.3 H Chloride 97 L Carbon Dioxide 17 L Anion Gap 24.3 H BUN 93 H Creatinine 6.50 H GFR Calculation 6 BUN/Creatinine Ratio 14.00 Glucose 388 H POC Glucose Calculated Osmolality 310.4 H Calcium 9.8 Magnesium 2.7 H Total Creatine Kinase 30 CK-MB (CK-2) 1.0 Troponin I 0.131 H B-Natriuretic Peptide 94 Urine Color Urine Appearance Urine pH Ur Specific [place] Urine Protein Urine Glucose (UA) Urine Ketones Urine Blood Urine Nitrate Urine Bilirubin Urine Urobilinogen Urine Leukocytes Urine RBC Ur Culture Indicated? 03/05/17 03/05/17 03/05/17 03:01 04:17 04:21 WBC RBC Hgb Hct MCV MCH MCHC RDW Plt Count MPV Neut % (Auto) Lymph % (Auto) [place] % (Auto) Eos % (Auto) Baso % (Auto) Neut # (Auto) Lymph # (Auto) [place] # (Auto) Eos # (Auto) Baso # (Auto) Immature Gran % Nucleated RBC % Immature Gran # Nucleated RBCs # Immature Plt Fraction Sodium Potassium Chloride Carbon Dioxide Anion Gap BUN Creatinine GFR Calculation BUN/Creatinine Ratio Glucose POC Glucose 334 H 352 H Calculated Osmolality Calcium Magnesium Total Creatine Kinase CK-MB (CK-2) Troponin I B-Natriuretic Peptide Urine Color Yellow Urine Appearance Slightly hazy Urine pH 5.0 Ur Specific [place] 1.013 Urine Protein 30 Urine Glucose (UA) Negative Urine Ketones Negative Urine Blood Negative Urine Nitrate Negative Urine Bilirubin Negative Urine Urobilinogen < 2.0 H Urine Leukocytes Trace Urine RBC <1 Ur Culture Indicated? Results to follow 03/05/17 03/05/17 07:33 07:47 WBC RBC Hgb Hct MCV MCH MCHC RDW Plt Count MPV Neut % (Auto) Lymph % (Auto) [place] % (Auto) Eos % (Auto) Baso % (Auto) Neut # (Auto) Lymph # (Auto) [place] # (Auto) Eos # (Auto) Baso # (Auto) Immature Gran % Nucleated RBC % Immature Gran # Nucleated RBCs # Immature Plt Fraction Sodium 134 L Potassium 5.4 H Chloride 99 Carbon Dioxide 19 L Anion Gap 21.4 H BUN 99 H Creatinine 6.60 H GFR Calculation 6 BUN/Creatinine Ratio 15.00 Glucose 271 H POC Glucose 285 H Calculated Osmolality 308.2 H Calcium 9.6 Magnesium Total Creatine Kinase CK-MB (CK-2) Troponin I B-Natriuretic Peptide Urine Color Urine Appearance Urine pH Ur Specific [place] Urine Protein Urine Glucose (UA) Urine Ketones Urine Blood Urine Nitrate Urine Bilirubin Urine Urobilinogen Urine Leukocytes Urine RBC Ur Culture Indicated? - EKG EKG results: interpreted by me (LVH with strain normal sinus rhythm)
--- NOTE | 2017-03-05 11:15 | Hospitalist Progress Note ---
Assessment and Plan (1) Acute exacerbation of CHF (congestive heart failure) Status: Acute Assessment and plan: Impression: 1. Acute on chronic systolic congestive heart failure 2. Pulmonary hypertension 3. End-stage renal disease Plan: Await recommendations from nephrology regarding possible revision in dialysis. Cardiology has already seen the patient. Otherwise, continue current care. This note was completed using [employer] voice recognition software. There may be surveyor chain helper errors as a result. Current Visit: No Qualifiers: Congestive heart failure type: systolic Qualified Code(s): I50.23 - Acute on chronic systolic (congestive) heart failure Hospitalist: Subjective Interval history: Follow-up pulmonary hypertension, acute systolic congestive heart failure, and end-stage renal disease. The patient is dyspneic in the bed. Family reports that they have increased the concentration of the dialysate in an attempt to remove more fluid during her nightly peritoneal dialysis sessions. She has a hard time moving about in the bed due to chronic spinal arthritis. Exam - Constitutional Vitals: Period Temp Pulse Resp BP Sys/Sung Pulse Ox Last 24 Hr 97.4 F-97.6 F 59-68 16-18 103-121/53-69 98-99 Vital signs are noted above. Heart is regular with distant tones. I do not hear murmur. She is not moving much air. I do not hear any wheezes. Abdomen is soft without mass. There is no significant peripheral edema. She is awake and alert. Results - Labs CBC & BMP: 03/05/17 02:58 03/05/17 07:47 Lab Results: I have reviewed the past 24 hour labs
[2017-03-05] MEDS: BRIMONIDINE 0.15% OPH SOLN 1 DROP/DROPS BOTTLE BOTH EYES SCH ×2 (12:16→21:24)
--- NOTE | 2017-03-05 12:39 | Nephrology Consult Note ---
History of Present Illness Chief complaint: ESRD History of present illness: Ms. Sommer is a 81 year old female with ESRD on peritoneal dialysis. She was admitted with shortness of breath. She has been using a cycler at night at home. She has had no symptoms of peritonitis. PD catheter has been functioning well. She has several other chronic problems including pulmonary hypertension and valvular heart disease. Home Medications Medication Instructions Recorded Confirmed Type Allopurinol 300 mg PO DAILY 05/03/15 03/05/17 History Calcium (Carb)/Vit D 600-400 1 tablet PO DAILY 05/03/15 03/05/17 History [Caltrate 600 + D] Brimonidine 0.15% Oph Soln 1 drops BOTH EYES BID 05/17/15 03/05/17 History [Alphagan P 0.15% Oph Soln] Ketorolac Tromethamine [Ketorolac 1 drop LEFT EYE TID 01/16/17 03/05/17 History 0.4% Oph Soln] Prorenal D 1 tablet PO DAILY 01/16/17 03/05/17 History Carvedilol [Coreg] 12.5 mg PO BID #60 tablet 01/19/17 03/05/17 Rx Isosorbide Dinitrate [Isordil] 20 mg PO TID #90 tablet 01/19/17 03/05/17 Rx hydrALAZINE TAB [Apresoline Tab] 50 mg PO TID #90 tablet 01/19/17 03/05/17 Rx Aspirin EC Tab 81 mg PO DAILY 02/01/17 03/05/17 History NIFEdipine [Nifedipine ER] 90 mg PO DAILY 02/01/17 03/05/17 History Cyproheptadine Tab [Periactin Tab] 4 mg PO TID #90 tablet 02/06/17 03/05/17 Rx Pantoprazole Tab [Protonix Tab] 40 mg PO DAILY #30 tablet 02/06/17 03/05/17 Rx predniSONE TAB [PredniSONE] 20 mg PO BID 03/05/17 03/05/17 History Allergies Allergy/AdvReac Type Severity Reaction Status Date / Time JACKIE Inhibitors AdvReac Intermediate Cramping Verified 03/05/17 08:37 of the Muscles hydrocodone [From Lortab] AdvReac Intermediate Confusion Verified 03/05/17 08:37 codeine AdvReac Nausea Verified 03/05/17 08:37 Medical,Surgical,& Family Hx - Medical History Cardio: History of: Cardiac Dysrhythmia, CHF, CAD, Hypertension, [place], Valvular Heart Disease, Cardiovascular Problems Psychological: History of: Anxiety Disorders, Depression (refused lexapro) Neurology: History of: Cerebrovascular Accident, Cerebral Palsy No history of: Brain Aneurysm, Cerebral Hemorrhage, Dementia, Migraine, Multiple Sclerosis, Parkinson's Disease, Peripheral Neuropathy, Seizures, TIA, Vertigo, Neurologocal Cancer HEENT: History of: Glaucoma Comment Only: Eye Problem (left eye surgery x 3 in [place]) Endocrine: History of: Diabetes Mellitus (NIDDM), Dyslipidemia Rheumatology: History of;: Gout Renal: History of: Dialysis (peritoneal dialysis every night), Renal Failure, Renal Problems Gastrointestinal: History of: GERD, Gastrointestinal Bleed Hematology: No history of: Blood Transfusion Reaction Other: History of: Miscellaneous Medical Problems (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) No history of: Anesthesia Reactions - Surgical History Cardiac Surgeries: Sugical HX of: Carotid Endarterectomy Neurologic Surgeries: Patient denies: Brain Aneurysm, Cerebral Hemorrhage, Neurologic Surgery HEENT Surgeries: Surgical HX of: Carotid Endarterectomy Abdominal Surgeries: Surgical HX of: Appendectomy, Cholecystectomy, Colonoscopy , EGD Reproductive Surgeries: Surgical HX of;: Hysterectomy - Family History Family History: Reports;: Family Heart Disease (in brothers and sisters.), Family Hypertension (multiple family members.), Family Stroke (mother of complications of strokes.) - Social History Smoking Status: Never smoker Frequency of Alcohol Use: None Type of Drug Use: None Review of Systems 12 point system: reviewed and no additional remarkable complaints except as stated Exam - Vital Signs Vital signs: Period Temp Pulse Resp BP Sys/Sung Pulse Ox Last 24 Hr 97.4 F-97.8 F 59-68 16-18 103-121/51-69 98-99 Exam: Gen.: Alert and oriented x3. ENT: Pupils equal round reactive to light. EOMs intact. Mucous membranes moist. Neck: Supple. No JVD or bruit. Cardiovascular: Regular rate and rhythm. 2/6 systolic murmur Lungs: Clear Abdomen: Soft. Nontender. Positive bowel sounds. No organomegaly Extremities: No edema Results - Labs CBC & BMP: 03/05/17 02:58 03/05/17 07:47 Assessment and Plan (1) End stage renal disease Status: Chronic Assessment and plan: 81-year-old woman with: * ESRD. She does not appear to have significant volume overload. Peritoneal dialysis will be continued with 2.5% exchanges. * Dyspnea. She has pulmonary hypertension and valvular heart disease as well as atelectasis. * Diabetes mellitus * Cervical disc disease Current Visit: Yes (2) Cervical disc disease Status: Acute Current Visit: Yes (3) Atelectasis of both lungs Status: Acute Current Visit: Yes (4) Dyspnea Status: Acute Current Visit: Yes (5) Leukocytosis Status: Acute Current Visit: Yes (6) Mitral regurgitation Status: Chronic Current Visit: Yes Qualifiers: Cardiac valve disease etiology: nonrheumatic Qualified Code(s): I34.0 - Nonrheumatic mitral (valve) insufficiency (7) Pulmonary hypertension Status: Chronic Current Visit: Yes (8) Severe concentric left ventricular hypertrophy Status: Chronic Current Visit: Yes (9) Diabetes mellitus Status: Chronic Current Visit: No Qualifiers: Diabetes mellitus type: type 2 Chronic kidney disease stage: on chronic dialysis
[2017-03-05] MEDS: CLOTRIMAZOLE 10 MG TROCHE PO SCH ×3 (15:32→21:23)
[2017-03-06] MEDS: CLOTRIMAZOLE 10 MG TROCHE PO SCH ×6 (06:00→22:00)
[2017-03-06] MEDS: cefTRIAXone 1,000 MG in SODIUM CHLORIDE 0.9% 100 ML IV SCH (06:00)
--- NOTE | 2017-03-06 06:06 | Cardiology Progress Note ---
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 Sommer denies any chest pain this morning dyspnea is without change. Biomarkers are mildly elevated. Not much change overall. Recommend continue medical therapy. Her exam is stable. 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 Her vital signs are stable and acceptable. Exam (Progress Note) - Constitutional Vitals: Period Temp Pulse Resp BP Sys/Sung Pulse Ox Last 24 Hr 97.1 F-97.8 F 20-69 16-65 103-116/51-69 94-99 General appearance: normal weight - Respiratory Respiratory exam: Present: clear to auscultation bilaterally (Suboptimal effort clear anteriorly) - Cardiovascular Cardiovascular exam: Present: regular rate and rhythm (PMI is laterally displaced 3 out of 6 murmur of mitral regurgitation and murmur of tricuspid regurgitation as well) - GI/Abdominal GI/Abdominal exam: Present: normal bowel sounds - Neurological Exam Neurological exam: Present: alert - Psychiatric Psychiatric exam: Present: depressed, flat affect - Skin Skin exam: Present: normal color, warm - Other Additional findings: Atrophic peripheral musculature Result/EKG - Labs CBC & BMP: 03/05/17 02:58 03/05/17 07:47 Labs: Laboratory Results - last 24 hr 03/05/17 03/05/17 03/05/17 07:33 07:47 09:50 Sodium 134 L Potassium 5.4 H Chloride 99 Carbon Dioxide 19 L Anion Gap 21.4 H BUN 99 H Creatinine 6.60 H GFR Calculation 6 BUN/Creatinine Ratio 15.00 Glucose 271 H POC Glucose 285 H Calculated Osmolality 308.2 H Calcium 9.6 Troponin I 0.107 H 03/05/17 03/05/17 03/05/17 10:58 12:36 15:11 Sodium Potassium Chloride Carbon Dioxide Anion Gap BUN Creatinine GFR Calculation BUN/Creatinine Ratio Glucose POC Glucose 232 H Calculated Osmolality Calcium Troponin I 0.111 H 0.115 H 03/05/17 03/05/17 16:32 22:03 Sodium Potassium Chloride Carbon Dioxide Anion Gap BUN Creatinine GFR Calculation BUN/Creatinine Ratio Glucose POC Glucose 201 H 248 H Calculated Osmolality Calcium Troponin I
[2017-03-06 06:57] LABS: Albumin 2.5 G/DL (3.4-5.0); Bilirubin,Total 0.4 MG/DL (0.2-1.0); Osmolality,Calculated 304.1 MOS/KG (273-304); Potassium 5.3 MMOL/L (3.5-5.1); Total Protein 5.3 G/DL (6.4-8.3)
[2017-03-06] MEDS: INSULIN LISPRO 100 UNIT/ML SUBCUT SCH ×4 (09:25→21:53)
[2017-03-06] MEDS: ISOSORBIDE DINITRATE 20 MG TABLET PO SCH ×4 (09:26→21:54)
[2017-03-06] MEDS: ALLOPURINOL 300 MG TABLET PO SCH ×2 (09:26→12:30)
[2017-03-06] MEDS: CLOPIDOGREL 75 MG TABLET PO SCH ×2 (09:27→12:30)
[2017-03-06] MEDS: CALCIUM (CARBONATE)/VITAMIN D 600 MG-400 UNIT TABLET PO SCH ×2 (09:27→12:29)
[2017-03-06] MEDS: CARVEDILOL 12.5 MG TABLET PO SCH ×3 (09:27→21:54)
[2017-03-06] MEDS: ASPIRIN EC 81 MG TABLET PO SCH ×2 (09:27→12:29)
[2017-03-06] MEDS: PANTOPRAZOLE 40 MG TABLET PO SCH ×2 (09:27→12:30)
[2017-03-06] MEDS: BRIMONIDINE 0.15% OPH SOLN 1 DROP/DROPS BOTTLE BOTH EYES SCH ×3 (09:27→21:54)
--- NOTE | 2017-03-06 10:57 | Hospitalist Progress Note ---
Assessment and Plan (1) Acute exacerbation of CHF (congestive heart failure) Status: Acute Assessment and plan: Impression: 1. Acute on chronic systolic congestive heart failure 2. Pulmonary hypertension 3. End-stage renal disease 4. Oral candidiasis, improving Plan: Continue current care. Family inquired about home oxygen. We will need to check an oxygen saturation at the time of discharge to see if she qualifies. This note was completed using [employer] voice recognition software. There may be contracts attorney errors as a result. Current Visit: No Qualifiers: Congestive heart failure type: systolic Qualified Code(s): I50.23 - Acute on chronic systolic (congestive) heart failure Hospitalist: Subjective Interval history: Follow-up end-stage renal disease, acute on chronic systolic congestive heart failure, oral candidiasis. The staff and family reports that the patient has been refusing care and medications this morning. Nephrology and cardiology has seen the patient. Dyspnea is apparently unchanged. Exam - Constitutional Vitals: Period Temp Pulse Resp BP Sys/Sung Pulse Ox Last 24 Hr 97.1 F-97.8 F 20-95 18-65 106-124/51-70 92-99 Vital signs are noted above. Heart is regular with distant tones and a 2/6 systolic murmur. She has a few rhonchi in the anterior lung ramirez. There is no peripheral edema. She is awake and conversant. Results - Labs CBC & BMP: 03/05/17 02:58 03/06/17 05:39 Lab Results: I have reviewed the past 24 hour labs
--- NOTE | 2017-03-06 21:46 | Nephrology Progress Note ---
Nephrology - PN: Subj Interval history: She denies shortness of breath today. No chest pain Exam (PN)-Nephrology - Vital Signs Vital signs: Period Temp Pulse Resp BP Sys/Sung Pulse Ox Last 24 Hr 97.1 F-97.7 F 20-95 16-65 100-127/54-69 92-95 Exam: Gen.: Alert and oriented x3. ENT: Pupils equal round reactive to light. EOMs intact. Mucous membranes moist. Neck: Supple. No JVD or bruit. Cardiovascular: Regular rate and rhythm. No murmur rub or gallop Lungs: Clear Abdomen: Soft. Nontender. Positive bowel sounds. No organomegaly. PD catheter exit site without signs of infection Extremities: No edema - Lab 03/05/17 02:58 03/06/17 05:39 Most recent lab results Calcium 10.0 MG/DL (8.5-10.1) 03/06/17 05:39 Magnesium 2.7 MG/DL (1.8-2.4) H 03/05/17 02:58 Assessment and Plan (1) End stage renal disease Status: Chronic Assessment and plan: 81-year-old woman with: * ESRD. She does not appear to have significant volume overload. Peritoneal dialysis will be continued with 2.5% exchanges. * Dyspnea. She has pulmonary hypertension and valvular heart disease as well as atelectasis. * Diabetes mellitus * Cervical disc disease Current Visit: Yes (2) Cervical disc disease Status: Acute Current Visit: Yes (3) Atelectasis of both lungs Status: Acute Current Visit: Yes (4) Dyspnea Status: Acute Current Visit: Yes (5) Leukocytosis Status: Acute Current Visit: Yes (6) Mitral regurgitation Status: Chronic Current Visit: Yes Qualifiers: Cardiac valve disease etiology: nonrheumatic Qualified Code(s): I34.0 - Nonrheumatic mitral (valve) insufficiency (7) Pulmonary hypertension Status: Chronic Current Visit: Yes (8) Severe concentric left ventricular hypertrophy Status: Chronic Current Visit: Yes (9) Diabetes mellitus Status: Chronic Current Visit: No Qualifiers: Diabetes mellitus type: type 2 Chronic kidney disease stage: on chronic dialysis
[2017-03-07] MEDS: CLOTRIMAZOLE 10 MG TROCHE PO SCH ×5 (06:17→23:01)
[2017-03-07] MEDS: cefTRIAXone 1,000 MG in SODIUM CHLORIDE 0.9% 100 ML IV SCH (06:17)
--- NOTE | 2017-03-07 09:53 | Nephrology Progress Note ---
Nephrology - PN: Subj Interval history: Ms. Sommer is seen in follow-up of her end-stage renal disease on peritoneal dialysis. She is fairly sleepy today but in no distress and she denies any shortness of breath. Her chest is clear to exam. She has minimal edema. She is wearing a cervical collar which her daughter keeps on her because she does not like to see her tilt her head significantly. She did have evaluation by neurosurgery in [place] for disc disease but the family says there is no surgery planned and cannot relate any specific recommendations from them. The family wishes to do cycler peritoneal dialysis as they do at home. They will begin that tonight and we can stop intermittent peritoneal dialysis once that is begun. Exam (PN)-Nephrology - Vital Signs Vital signs: Period Temp Pulse Resp BP Sys/Sung Pulse Ox Last 24 Hr 97.2 F-97.7 F 63-87 16-20 100-132/49-67 93-97 - Lab 03/05/17 02:58 03/06/17 05:39 Most recent lab results Calcium 10.0 MG/DL (8.5-10.1) 03/06/17 05:39 Magnesium 2.7 MG/DL (1.8-2.4) H 03/05/17 02:58
[2017-03-07] MEDS: INSULIN LISPRO 100 UNIT/ML SUBCUT SCH ×4 (09:58→21:14)
[2017-03-07] MEDS: CARVEDILOL 12.5 MG TABLET PO SCH ×3 (09:59→21:13)
[2017-03-07] MEDS: ASPIRIN EC 81 MG TABLET PO SCH ×2 (09:59→16:23)
[2017-03-07] MEDS: CLOPIDOGREL 75 MG TABLET PO SCH ×2 (09:59→16:23)
[2017-03-07] MEDS: BRIMONIDINE 0.15% OPH SOLN 1 DROP/DROPS BOTTLE BOTH EYES SCH ×2 (09:59→21:14)
[2017-03-07] MEDS: ALLOPURINOL 300 MG TABLET PO SCH ×2 (09:59→16:24)
[2017-03-07] MEDS: PANTOPRAZOLE 40 MG TABLET PO SCH ×2 (09:59→16:24)
[2017-03-07] MEDS: CALCIUM (CARBONATE)/VITAMIN D 600 MG-400 UNIT TABLET PO SCH ×2 (09:59→16:23)
[2017-03-07] MEDS: ISOSORBIDE DINITRATE 20 MG TABLET PO SCH ×3 (09:59→21:13)
--- NOTE | 2017-03-07 11:42 | Hospitalist Progress Note ---
Assessment and Plan - Time spent with patient Time spent with patient: Less than 30 minutes (1) ESRD on peritoneal dialysis Status: Chronic Assessment and plan: Patient is being followed by nephrology. She does appear to be mildly edematous today. Potassium elevated at 6.6. Dr. Arce recommends patient restarting nighttime peritoneal dialysis as she does at home. Current Visit: No (2) History of non-ST elevation myocardial infarction (NSTEMI) Status: Chronic Assessment and plan: Patient being followed by cardiology Current Visit: No (3) Hyperkalemia Status: Resolved Assessment and plan: Potassium 6.60 this morning. Nephrology recommends restarting nighttime peritoneal dialysis. We will continue to monitor potassium closely. Current Visit: No (4) Dyspnea Status: Acute Assessment and plan: Patient on 2 L O2 per NC Current Visit: Yes (5) Bulging discs Status: Chronic Assessment and plan: Patient continues to wear a cervical collar. She also takes oral prednisone and is followed by Dr. Jules. He has been consulted for further recommendations and evaluation Current Visit: Yes (6) Pulmonary hypertension Status: Chronic Current Visit: Yes Hospitalist: Subjective Interval history: Patient seen and examined today. She was admitted for shortness of breath, CHF exacerbation, end-stage renal disease on peritoneal dialysis. On exam today the patient was resting in bed. Her who is at bedside states that the patient has been refusing her medications this morning and she does not eat. She has been prescribed Periactin for appetite stimulation however she has not taken her medications either. She remains in a cervical collar for apparent bulging disc for which she has been seen by a neurosurgeon in [place]. She is also been started on oral prednisone 20 mg twice daily per Dr[address] Jules. On exam , the patient is mildly edematous and upper and lower extremities. Patient's daughter states that the patient has been progressively weakening since her last hospital visit. Patient no longer moves any extremity. When questioned, the patient does respond verbally and shakes and nods her head. She denies any pain. She denies having an appetite but agrees to try and eat. Nephrology is following and recommends restarting nighttime peritoneal dialysis. Will consult neurology for further recommendations. Exam - Constitutional Vitals: Period Temp Pulse Resp BP Sys/Sung Pulse Ox Last 24 Hr 97.2 F-97.7 F 63-87 16-20 100-132/49-67 93-97 Exam: General: No acute distress Heart: RRR; no gallops, murmurs, rubs, clicks Lungs: CTA bilaterally; no wheezes, rales, rhonchi Abdomen: NBS, soft, nontender, no masses Extremities: no cyanosis, edema, clubbing Neuro: AAOx3 Results - Labs CBC & BMP: 03/05/17 02:58 03/06/17 05:39 Lab Results: I have reviewed the past 24 hour labs
--- NOTE | 2017-03-07 13:24 | Cardiology Progress Note ---
Maylin Billy April, RN, am scribing for, and in the presence of, Rm Alegre MD 13:24. Assessment and Plan (1) Dyspnea Status: Acute Current Visit: Yes (2) Atelectasis of both lungs Status: Chronic Current Visit: Yes (3) Ischemic cardiomyopathy Status: Chronic Assessment and plan: Echo dated January 16, 2017 with ejection fraction of 25%. 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 Abreu SUMMARY: Ms. Sommer is an 81-year-old female with a history of severe pulmonary hypertension, ischemic cardiomyopathy, and end-stage renal disease on peritoneal dialysis. She is not ambulatory due to the axial skeletal disease and muscular weakness. Echocardiogram done January 16, 2017 with ejection fraction 25% with multiple regional wall motion abnormalities and severe mitral regurgitation, severe tricuspid regurgitation, aortic sclerosis, severe LVH, and pulmonary hypertension with right ventricular systolic pressure estimated be 56 mmHg. Heart catheterization done by Dr. Abreu February 25, 2012 with mild to moderate nonobstructive coronary artery disease. Cardiology was asked to see her because of dyspnea. EKG on admission showed sinus rhythm with heart rate of 70. Chest x-ray showed no acute findings, but did indicate limited inspiration and a band of atelectasis within the mid to lower left chest. Troponin was elevated on admission at 1.31, last check was 0.115. She has had no chest pain this admission and is being medically managed. March 07, 2017: Ms. Sommer is seen resting in bed in no acute distress. She is sleeping and does not wake up upon examination. Oxygen is in use via nasal cannula. Her is at bedside and states she had a good night. He says she has not complained of having any chest pain and that her breathing has improved. Vital signs have been stable throughout the night. Patient responds appropriately to questions. She has severe diffuse muscle weakness with inability to hold her head up or to walk. I do not have any idea as to what may be the etiology of that. Concern would be that is metabolic in some way. Our plan is to continue her current medications. She is compensated from a congestive heart failure standpoint currently. I have discussed in detail the particulars of this case and I have examined the patient and reviewed the patient's chart both current and old. I was directly involved in the patient's evaluation and management and I completely agree with Yasmin Carlisle RN regarding this patient's evaluation and treatment plan. Exam (Progress Note) - Constitutional Vitals: Period Temp Pulse Resp BP Sys/Sung Pulse Ox Last 24 Hr 97.2 F-97.7 F 63-87 16-20 100-132/49-67 93-97 General appearance: other (Chronically ill-appearing) - Head Head exam: Absent: abrasion, hematoma - Neck Neck exam: Present: other (Neck brace, soft cervical collar) - Respiratory Respiratory exam: Present: clear to auscultation bilaterally, other (Oxygen via nasal cannula). Absent: accessory muscle use, chest wall tenderness - Cardiovascular Cardiovascular exam: Present: regular rate and rhythm, systolic murmur - GI/Abdominal GI/Abdominal exam: Present: normal bowel sounds, soft. Absent: distended - Extremities Exam Extremities exam: Present: edema (trace to bilateral lower extremities) - Neurological Exam Neurological exam: Present: other (Unable to assess as she is sleeping) - Psychiatric Psychiatric exam: Present: other (Unable to assess as she is sleeping) - Skin Skin exam: Present: warm, dry Result/EKG - Labs CBC & BMP: 03/05/17 02:58 03/06/17 05:39 Labs: Laboratory Results - last 24 hr 03/06/17 03/06/17 03/06/17 07:49 10:29 16:22 POC Glucose 224 H 242 H 210 H 03/06/17 03/07/17 20:47 06:36 POC Glucose 253 H 161 H - Diagnostic Findings Procedure: Chest x-ray: report reviewed by me - EKG EKG results: interpreted by me EKG shows: sinus rhythm Codey Billy Wesley, MD, personally performed the services described in this documentation, ascribed by Yasmin Carlisle RN in my presence, and it is both accurate and complete .
--- NOTE | 2017-03-07 15:10 | Neurology Consult Note ---
History of Present Illness History of present illness: Ms. Sommer is a 81 year old right-handed -[place] lady admitted to the hospital this time with acute IA, shortness of breath and some element of questionable chest pain. She was found to have pretty high troponin level. I have evaluated patient in the past for increasing generalized weakness. MRI of the brain cervical and thoracic spine did not reveal any significant pathology except for some multilevel disc disease. Brain MRI did not show any acute or chronic pathology. She was scheduled to have a nerve conduction study/EMG to rule out myopathy and it was scheduled for March 16, 2017. Patient is wearing soft collar to prevent neck drop. Nephrology and cardiology are already on the case Home Medications Medication Instructions Recorded Confirmed Type Allopurinol 300 mg PO DAILY 05/03/15 03/05/17 History Calcium (Carb)/Vit D 600-400 1 tablet PO DAILY 05/03/15 03/05/17 History [Caltrate 600 + D] Brimonidine 0.15% Oph Soln 1 drops BOTH EYES BID 05/17/15 03/05/17 History [Alphagan P 0.15% Oph Soln] Ketorolac Tromethamine [Ketorolac 1 drop LEFT EYE TID 01/16/17 03/05/17 History 0.4% Oph Soln] Prorenal D 1 tablet PO DAILY 01/16/17 03/05/17 History Carvedilol [Coreg] 12.5 mg PO BID #60 tablet 01/19/17 03/05/17 Rx Isosorbide Dinitrate [Isordil] 20 mg PO TID #90 tablet 01/19/17 03/05/17 Rx hydrALAZINE TAB [Apresoline Tab] 50 mg PO TID #90 tablet 01/19/17 03/05/17 Rx Aspirin EC Tab 81 mg PO DAILY 02/01/17 03/05/17 History NIFEdipine [Nifedipine ER] 90 mg PO DAILY 02/01/17 03/05/17 History Cyproheptadine Tab [Periactin Tab] 4 mg PO TID #90 tablet 02/06/17 03/05/17 Rx Pantoprazole Tab [Protonix Tab] 40 mg PO DAILY #30 tablet 02/06/17 03/05/17 Rx predniSONE TAB [PredniSONE] 20 mg PO BID 03/05/17 03/05/17 History Clopidogrel [Plavix] 75 mg PO DAILY 03/06/17 03/06/17 History Allergies Allergy/AdvReac Type Severity Reaction Status Date / Time JACKIE Inhibitors AdvReac Intermediate Cramping Verified 03/05/17 08:37 of the Muscles hydrocodone [From Lortab] AdvReac Intermediate Confusion Verified 03/05/17 08:37 codeine AdvReac Nausea Verified 03/05/17 08:37 12 point system: reviewed and no additional remarkable complaints except as stated Medical,Surgical,& Family Hx - Medical History Cardio: History of: Cardiac Dysrhythmia, CHF, CAD, Hypertension, IA, Valvular Heart Disease, Cardiovascular Problems Psychological: History of: Anxiety Disorders, Depression (refused lexapro) Neurology: History of: Cerebrovascular Accident, Cerebral Palsy No history of: Brain Aneurysm, Cerebral Hemorrhage, Dementia, Migraine, Multiple Sclerosis, Parkinson's Disease, Peripheral Neuropathy, Seizures, TIA, Vertigo, Neurologocal Cancer HEENT: History of: Glaucoma Comment Only: Eye Problem (left eye surgery x 3 in [place]) Endocrine: History of: Diabetes Mellitus (NIDDM), Dyslipidemia Rheumatology: History of;: Gout Renal: History of: Dialysis (peritoneal dialysis every night), Renal Failure, Renal Problems Gastrointestinal: History of: GERD, Gastrointestinal Bleed Hematology: No history of: Blood Transfusion Reaction Other: History of: Miscellaneous Medical Problems (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) No history of: Anesthesia Reactions - Surgical History Cardiac Surgeries: Sugical HX of: Carotid Endarterectomy Neurologic Surgeries: Patient denies: Brain Aneurysm, Cerebral Hemorrhage, Neurologic Surgery HEENT Surgeries: Surgical HX of: Carotid Endarterectomy Abdominal Surgeries: Surgical HX of: Appendectomy, Cholecystectomy, Colonoscopy , EGD Reproductive Surgeries: Surgical HX of;: Hysterectomy - Family History Family History: Reports;: Family Heart Disease (in brothers and sisters.), Family Hypertension (multiple family members.), Family Stroke (mother of complications of strokes.) - Social History Smoking Status: Never smoker Frequency of Alcohol Use: None Type of Drug Use: None Exam - Constitutional Vitals: Period Temp Pulse Resp BP Sys/Sung Pulse Ox Last 24 Hr 97.2 F-98.0 F 63-87 18-20 100-132/49-67 93-98 Exam: GENERAL: Patient is in no acute distress. NECK: Neck is supple. There is no JVD. No carotid bruits present. No thyroid masses. CVS: First and second heart sounds are normal. There is no S3 present. Regular rate and rhythm. RESPIRATORY: Lungs are clear to auscultation without any rales or rhonchi. ABDOMEN: Soft and non-tender. Bowel sounds are present. There is no hepatosplenomegaly. EXT: There is no palpable edema. Peripheral pulses are present. Skin: No rashes Central Nervous system: General: Alert, awake Speech: Fluent. Very reduced volume output Comprehension: Fair Facial expressions: Normal Cranial Nerves: Pupils are equally reactive to light. Extraocular movements intact. No facial asymmetry is seen Motor: Bulk is normal. Tone is slightly low Strength cannot be assessed Sensory: Unreliable Reflexes: 1+ and symmetrical Cerebellar function: Cannot be tested Toes: Equivocal Gait: Cannot be tested Results - Labs CBC & BMP: 03/05/17 02:58 03/06/17 05:39 Assessment and Plan (1) Generalized muscle weakness Status: Acute Assessment and plan: We will perform nerve conduction study/EMG Current Visit: Yes (2) NSTEMI (non-ST elevated myocardial infarction) Status: Resolved Assessment and plan: Defer treatment to cardiology Current Visit: No (3) CKD (chronic kidney disease) stage 5, GFR less than 15 ml/min Status: Chronic Assessment and plan: Defer treatment to nephrology Thank you for the consult Current Visit: No
[2017-03-07] MEDS: AMPICILLIN INJ 500 MG in SODIUM CHLORIDE 0.9% 100 ML IV SCH ×2 (15:19→21:22)
[2017-03-07] MEDS: MEGESTROL 400 MG/10 ML UDCUP PO SCH (21:13)
[2017-03-08] MEDS: AMPICILLIN INJ 500 MG in SODIUM CHLORIDE 0.9% 100 ML IV SCH ×4 (04:00→20:30)
[2017-03-08] MEDS: cefTRIAXone 1,000 MG in SODIUM CHLORIDE 0.9% 100 ML IV SCH (05:05)
[2017-03-08] MEDS: CLOTRIMAZOLE 10 MG TROCHE PO SCH ×5 (05:06→21:03)
[2017-03-08 06:57] LABS: Red Blood Count 2.92 MC/CUMM (3.8-5.5); White Blood Count 9.3 T/CUMM (4-12)
[2017-03-08 06:58] LABS: Basophils % 0.1 % (0.0-0.8); Eosinophils # 0.1 10*3/uL (0.0-0.87); Eosinophils % 1.3 % (0.00-10.9); Hematocrit 28.7 VOL% (35.7-47.0); Hemoglobin 9.8 GM/DL (12.0-16.0); Immature Granulocytes % 1.2 %; Immature Granulocytes Absolute 0.11 #; Lymphocytes % 10.3 % (21.3-54.2); Mean Corpuscular HGB Conc 34.1 GM/DL (32-36); Mean Corpuscular Hemoglobin 34 PG (27-34); Mean Corpuscular Volume 98.3 FL (87-102); Mean Platelet Volume 13.3 FL (9.6-12.0); Monocytes # 0.6 10*3/uL (0.11-0.8); Monocytes % 6.7 % (1.7-12.7); Neutrophils # 7.5 10*3/uL (1.4-7.4); Neutrophils % 80.4 % (38.7-73.9); Platelet Count 138 T/CUMM (130-400); Red Cell Distribution Width 15.5 % (9.3-17.3)
[2017-03-08 07:26] LABS: Calcium 8.4 MG/DL (8.5-10.1); Magnesium 2.1 MG/DL (1.8-2.4); Osmolality,Calculated 293.1 MOS/KG (273-304); Potassium 4.4 MMOL/L (3.5-5.1)
[2017-03-08] MEDS: PANTOPRAZOLE 40 MG TABLET PO SCH (10:08)
[2017-03-08] MEDS: MEGESTROL 400 MG/10 ML UDCUP PO SCH ×2 (10:08→20:32)
[2017-03-08] MEDS: INSULIN LISPRO 100 UNIT/ML SUBCUT SCH ×4 (10:08→20:49)
[2017-03-08] MEDS: CARVEDILOL 12.5 MG TABLET PO SCH ×2 (10:09→20:32)
[2017-03-08] MEDS: CALCIUM (CARBONATE)/VITAMIN D 600 MG-400 UNIT TABLET PO SCH (10:09)
[2017-03-08] MEDS: BRIMONIDINE 0.15% OPH SOLN 1 DROP/DROPS BOTTLE BOTH EYES SCH ×2 (10:09→20:31)
[2017-03-08] MEDS: ASPIRIN EC 81 MG TABLET PO SCH (10:09)
[2017-03-08] MEDS: CLOPIDOGREL 75 MG TABLET PO SCH (10:09)
[2017-03-08] MEDS: ALLOPURINOL 300 MG TABLET PO SCH (10:09)
[2017-03-08] MEDS: ISOSORBIDE DINITRATE 20 MG TABLET PO SCH ×3 (10:09→20:32)
--- NOTE | 2017-03-08 11:55 | Nephrology Progress Note ---
Nephrology - PN: Subj Interval history: Ms. Sommer continues to weaken. She cannot move any of her extremities against gravity. She does have a weak circulation representative on the right hand she can move her toes and she can turn her head side to side when laying in bed but she has no control over her head when sitting and no control over her trunk when sitting according to family. Review of her MRI studies show that she had some mild narrowing of the spinal canal at the C1 level. The onset of this weakness was approximately 5 weeks ago and has been progressive since that time. She dialyzed using her cycler last night and that went well. The etiology of her progressive weakness is unexplained. She does not seem to have reflexes at either knee. We will continue to do nocturnal cycler dialysis per the family. This is going fairly smoothly thus far Exam (PN)-Nephrology - Vital Signs Vital signs: Period Temp Pulse Resp BP Sys/Sung Pulse Ox Last 24 Hr 96.9 F-98.6 F 71-88 16-20 118-149/57-69 95-98 - Lab 03/08/17 04:37 03/08/17 04:37 Most recent lab results Calcium 8.4 MG/DL (8.5-10.1) L 03/08/17 04:37 Magnesium 2.1 MG/DL (1.8-2.4) 03/08/17 04:37
--- NOTE | 2017-03-08 12:21 | Cardiology Progress Note ---
Maylin Billy April, RN, am scribing for, and in the presence of, Rm Alegre MD 12:21. Assessment and Plan (1) Dyspnea Status: Acute Current Visit: Yes (2) Atelectasis of both lungs Status: Chronic Current Visit: Yes (3) Ischemic cardiomyopathy Status: Chronic Assessment and plan: Echo done January 16, 2017 with ejection fraction of 25%. Current Visit: Yes (4) Mitral regurgitation Status: Chronic Current Visit: Yes Qualifiers: Cardiac valve disease etiology: nonrheumatic Qualified Code(s): I34.0 - Nonrheumatic mitral (valve) insufficiency (5) Pulmonary hypertension Status: Chronic Current Visit: Yes (6) HTN (hypertension) Status: Chronic Current Visit: No Qualifiers: Hypertension type: essential hypertension Qualified Code(s): I10 - Essential (primary) hypertension Cardiology - PN: Subj Interval history: Concrete Vibrator Operator: Dr. Arbeu SUMMARY: Ms. Sommer is an 81-year-old female with a history of severe pulmonary hypertension, ischemic cardiomyopathy, and end-stage renal disease on peritoneal dialysis. She is not ambulatory due to the axial skeletal disease and muscular weakness. Echocardiogram done January 16, 2017 with ejection fraction 25% with multiple regional wall motion abnormalities and severe mitral regurgitation, severe tricuspid regurgitation, aortic sclerosis, severe LVH, and pulmonary hypertension with right ventricular systolic pressure estimated be 56 mmHg. Heart catheterization done by Dr. Abreu February 25, 2012 with mild to moderate nonobstructive coronary artery disease. Cardiology was asked to see her because of dyspnea. EKG on admission showed sinus rhythm with heart rate of 70. Chest x-ray showed no acute findings, but did indicate limited inspiration and a band of atelectasis within the mid to lower left chest. Troponin was elevated on admission at 1.31, last check was 0.115. She has had no chest pain this admission and is being medically managed. March 07, 2017: Ms. Sommer is seen resting in bed in no acute distress. She is sleeping and does not wake up upon examination. Oxygen is in use via nasal cannula. Her is at bedside and states she had a good night. He says she has not complained of having any chest pain and that her breathing has improved. Vital signs have been stable throughout the night. March 08, 2017: Ms. Sommer is more alert today. She is still not very talkative, but she will nod and answer questions with short answers. She denies any chest pain or shortness of breath. Oxygen is in use via nasal cannula. Her creatinine continues to be elevated at 5.5, but this is improved since admission. I cannot find a good reason as to why her Plavix has been stopped. I will resume it. She is not complaining and is talkative only with repeated verbal stimulus. I think overall from a cardiac standpoint she is reasonably stable. I have discussed in detail the particulars of this case and I have examined the patient and reviewed the patient's chart both current and old. I was directly involved in the patient's evaluation and management and I completely agree with Yasmin Carlisle RN regarding this patient's evaluation and treatment plan. Exam (Progress Note) - Constitutional Vitals: Period Temp Pulse Resp BP Sys/Sung Pulse Ox Last 24 Hr 96.9 F-98.6 F 71-88 16-20 118-149/57-69 95-98 Exam: General appearance: other (Chronically ill-appearing) - Head Head exam: Absent: abrasion, hematoma - Neck Neck exam: Present: other (Neck brace, soft cervical collar) - Respiratory Respiratory exam: Present: clear to auscultation bilaterally, other (Oxygen via nasal cannula). Absent: accessory muscle use, chest wall tenderness - Cardiovascular Cardiovascular exam: Present: regular rate and rhythm, systolic murmur - GI/Abdominal GI/Abdominal exam: Present: normal bowel sounds, soft. Absent: distended - Extremities Exam Extremities exam: Present: edema (trace to bilateral lower extremities) - Neurological Exam Neurological exam: Present: Awake, alert. - Skin Skin exam: Present: warm, dry Result/EKG - Labs CBC & BMP: 03/08/17 04:37 03/08/17 04:37 Lab Results: I have reviewed the past 24 hour labs Labs: Laboratory Results - last 24 hr 03/07/17 03/07/17 03/07/17 12:28 16:04 20:43 WBC RBC Hgb Hct MCV MCH MCHC RDW Plt Count MPV Neut % (Auto) Lymph % (Auto) [place] % (Auto) Eos % (Auto) Baso % (Auto) Neut # (Auto) Lymph # (Auto) [place] # (Auto) Eos # (Auto) Baso # (Auto) Immature Gran % Nucleated RBC % Immature Gran # Nucleated RBCs # Immature Plt Fraction Sodium Potassium Chloride Carbon Dioxide Anion Gap BUN Creatinine GFR Calculation BUN/Creatinine Ratio Glucose POC Glucose 181 H 86 92 Calculated Osmolality Calcium Magnesium 03/08/17 03/08/17 03/08/17 04:37 04:37 07:06 WBC 9.3 D RBC 2.92 L Hgb 9.8 L Hct 28.7 L MCV 98.3 MCH 34 MCHC 34.1 RDW 15.5 Plt Count 138 D MPV 13.3 H Neut % (Auto) 80.4 H Lymph % (Auto) 10.3 L [place] % (Auto) 6.7 Eos % (Auto) 1.3 Baso % (Auto) 0.1 Neut # (Auto) 7.5 H Lymph # (Auto) 1.0 L [place] # (Auto) 0.6 Eos # (Auto) 0.1 Baso # (Auto) 0.0 Immature Gran % 1.2 Nucleated RBC % 0.0 Immature Gran # 0.11 Nucleated RBCs # 0.00 Immature Plt Fraction 0.0 Sodium 135 L Potassium 4.4 Chloride 97 L Carbon Dioxide 29 Anion Gap 13.4 BUN 70 H Creatinine 5.50 H GFR Calculation 8 BUN/Creatinine Ratio 12.00 Glucose 146 H POC Glucose 183 H Calculated Osmolality 293.1 Calcium 8.4 L Magnesium 2.1 Codey Billy Wesley, MD, personally performed the services described in this documentation, ascribed by Yasmin Carlisle RN in my presence, and it is both accurate and complete .
--- NOTE | 2017-03-08 13:43 | Neurology Progress Note ---
Neurology - PN : Subjective Interval history: Patient is more alert and awake and following commands. Nerve conduction study/ EMG is pending. All the markers for myositis or muscle disorder has been negative. Exam (Progress Note) - Constitutional Vitals: Period Temp Pulse Resp BP Sys/Sung Pulse Ox Last 24 Hr 96.9 F-98.6 F 71-88 16-20 124-149/60-69 95-98 Exam: GENERAL: Patient is in no acute distress. NECK: Neck is supple. There is no JVD. No carotid bruits present. No thyroid masses. CVS: First and second heart sounds are normal. There is no S3 present. Regular rate and rhythm. RESPIRATORY: Lungs are clear to auscultation without any rales or rhonchi. ABDOMEN: Soft and non-tender. Bowel sounds are present. There is no hepatosplenomegaly. EXT: There is no palpable edema. Peripheral pulses are present. Skin: No rashes Central Nervous system: General: Alert, awake Speech: Fluent. Very reduced volume output Comprehension: Fair Facial expressions: Normal Cranial Nerves: Pupils are equally reactive to light. Extraocular movements intact. No facial asymmetry is seen Motor: Bulk is normal. Tone is slightly low Strength cannot be assessed Sensory: Unreliable Reflexes: 1+ and symmetrical Cerebellar function: Cannot be tested Toes: Equivocal Gait: Cannot be tested Results - Labs CBC & BMP: 03/08/17 04:37 03/08/17 04:37 Assessment and Plan (1) Generalized muscle weakness Status: Acute Assessment and plan: We will wait for the nerve conduction study/EMG test results. Check acetylcholine receptor antibody Serum protein electrophoresis. Current Visit: Yes (2) NSTEMI (non-ST elevated myocardial infarction) Status: Resolved Assessment and plan: Defer treatment to cardiology Current Visit: No (3) CKD (chronic kidney disease) stage 5, GFR less than 15 ml/min Status: Chronic Assessment and plan: Defer treatment to nephrology Thank you for the consult Current Visit: No
--- NOTE | 2017-03-08 14:05 | Hospitalist Progress Note ---
Assessment and Plan (1) Generalized muscle weakness Status: Acute Assessment and plan: 1)Mrs Sommer's failure to thrive is due most likely to her cervical disc disease according to Dr Jules. He will finish the NCS and EMG to rule out other inflamatory or peripheral nueropathy or myopathy including myasthenia gravis. I am encouraged that she ate today and I told her she can eat anything she wants. She will continue PT and OT. Continue PD. NSTEMI 5 weeks ago predates this debilitating generalized weakness Cervical stenosis- did not want surgery after talking to neurosurgeon in [place]. pHTN MOnitor her intake and consider PEG or TPN if her appetite fails again. 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 SHe ate breakfast and lunch and preferred cold and sweet things. She is looking at me and grinned when I cam ein. She is not talking a lot but did speak a little. I have discussed this case with Dr Arce and Dr Jules and coordinated care. She will complete the NCS/EMG today. Exam - Constitutional Vitals: Period Temp Pulse Resp BP Sys/Sung Pulse Ox Last 24 Hr 96.9 F-98.6 F 71-88 16-20 124-149/60-69 95-98 General appearance: normal weight, no acute distress - Eye Eye exam: Present: EOMI. Absent: scleral icterus - Respiratory Respiratory exam: Present: clear to auscultation bilaterally - Cardiovascular Cardiovascular exam: Present: regular rate and rhythm - GI/Abdominal GI/Abdominal exam: Present: normal bowel sounds, soft. 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 head held up with neck collar.) - Skin Skin exam: Present: warm, dry Results - Labs CBC & BMP: 03/08/17 04:37 03/08/17 04:37 Lab Results: I have reviewed the past 24 hour labs
[2017-03-08] MEDS ORDERED: [UNRECOGNIZED DRUG - OTHER] LEFT EYE SCH (15:00)
[2017-03-08] MEDS ORDERED: ACULAR LEFT EYE SCH (15:00)
[2017-03-09] MEDS: AMPICILLIN INJ 500 MG in SODIUM CHLORIDE 0.9% 100 ML IV SCH ×4 (02:42→21:50)
[2017-03-09] MEDS: cefTRIAXone 1,000 MG in SODIUM CHLORIDE 0.9% 100 ML IV SCH (05:10)
[2017-03-09] MEDS: CLOTRIMAZOLE 10 MG TROCHE PO SCH ×6 (05:18→21:48)
[2017-03-09 07:03] LABS: Basophils % 0.1 % (0.0-0.8); Eosinophils # 0.1 10*3/uL (0.0-0.87); Eosinophils % 0.9 % (0.00-10.9); Hematocrit 28.5 VOL% (35.7-47.0); Hemoglobin 9.8 GM/DL (12.0-16.0); Immature Granulocytes % 1.4 %; Immature Granulocytes Absolute 0.13 #; Lymphocytes # 0.9 10*3/uL (1.4-4.0); Lymphocytes % 9.8 % (21.3-54.2); Mean Corpuscular HGB Conc 34.4 GM/DL (32-36); Mean Corpuscular Hemoglobin 34 PG (27-34); Mean Corpuscular Volume 99.7 FL (87-102); Mean Platelet Volume 13.1 FL (9.6-12.0); Monocytes # 0.6 10*3/uL (0.11-0.8); Monocytes % 6.6 % (1.7-12.7); Neutrophils # 7.5 10*3/uL (1.4-7.4); Neutrophils % 81.2 % (38.7-73.9); Platelet Count 130 T/CUMM (130-400); Red Blood Count 2.86 MC/CUMM (3.8-5.5); Red Cell Distribution Width 15.7 % (9.3-17.3); White Blood Count 9.2 T/CUMM (4-12)
[2017-03-09 07:36] LABS: Calcium 8.1 MG/DL (8.5-10.1); Magnesium 2.2 MG/DL (1.8-2.4); Potassium 4.5 MMOL/L (3.5-5.1)
[2017-03-09 08:41] LABS: Albumin (SPE) 2.1 G/DL (3.2-5.3); Albumin (SPE) Rel % 45.2 %; Alpha 1 (SPE) 0.2 G/DL (0.1-0.4); Alpha 1 (SPE) Rel % 5.4 %; Alpha 2 (SPE) Rel % 20.9 %; Beta (SPE) 0.6 G/DL (0.5-1.1); Beta (SPE) Rel % 14.2 %; Gamma (SPE) 0.7 G/DL (0.7-1.7); Gamma (SPE) Rel % 14.3 %; Total Protein (Chem) 4.6 G/DL (6.4-8.3)
[2017-03-09] MEDS: ISOSORBIDE DINITRATE 20 MG TABLET PO SCH ×3 (08:45→21:49)
[2017-03-09] MEDS: MEGESTROL 400 MG/10 ML UDCUP PO SCH ×2 (08:45→21:48)
[2017-03-09] MEDS: CALCIUM (CARBONATE)/VITAMIN D 600 MG-400 UNIT TABLET PO SCH (08:46)
[2017-03-09] MEDS: CLOPIDOGREL 75 MG TABLET PO SCH (08:46)
[2017-03-09] MEDS: INSULIN LISPRO 100 UNIT/ML SUBCUT SCH ×4 (08:46→21:49)
[2017-03-09] MEDS: CARVEDILOL 12.5 MG TABLET PO SCH ×2 (08:46→21:49)
[2017-03-09] MEDS: ALLOPURINOL 300 MG TABLET PO SCH (08:46)
[2017-03-09] MEDS: ASPIRIN EC 81 MG TABLET PO SCH (08:46)
[2017-03-09] MEDS: PANTOPRAZOLE 40 MG TABLET PO SCH (08:46)
[2017-03-09] MEDS: BRIMONIDINE 0.15% OPH SOLN 1 DROP/DROPS BOTTLE BOTH EYES SCH ×2 (08:47→21:51)
--- NOTE | 2017-03-09 12:39 | Cardiology Progress Note ---
Maylin Billy April RN, am scribing for, and in the presence of, Rm Alegre MD 12:39. Assessment and Plan (1) Dyspnea Status: Acute Current Visit: Yes (2) Atelectasis of both lungs Status: Chronic Current Visit: Yes (3) Ischemic cardiomyopathy Status: Chronic Assessment and plan: Echo done January 16, 2017 with ejection fraction of 25%. Current Visit: Yes (4) Mitral regurgitation Status: Chronic Current Visit: Yes Qualifiers: Cardiac valve disease etiology: nonrheumatic Qualified Code(s): I34.0 - Nonrheumatic mitral (valve) insufficiency (5) Pulmonary hypertension Status: Chronic Current Visit: Yes (6) HTN (hypertension) Status: Chronic Current Visit: No Qualifiers: Hypertension type: essential hypertension Qualified Code(s): I10 - Essential (primary) hypertension Cardiology - PN: Subj Interval history: Precision Grinder: Dr. Abreu SUMMARY: Ms. Sommer is an 81-year-old female with a history of severe pulmonary hypertension, ischemic cardiomyopathy, and end-stage renal disease on peritoneal dialysis. She is not ambulatory due to the axial skeletal disease and muscular weakness. Echocardiogram done January 16, 2017 with ejection fraction 25% with multiple regional wall motion abnormalities and severe mitral regurgitation, severe tricuspid regurgitation, aortic sclerosis, severe LVH, and pulmonary hypertension with right ventricular systolic pressure estimated be 56 mmHg. Heart catheterization done by Dr. Abreu February 25, 2012 with mild to moderate nonobstructive coronary artery disease. Cardiology was asked to see her because of dyspnea. EKG on admission showed sinus rhythm with heart rate of 70. Chest x-ray showed no acute findings, but did indicate limited inspiration and a band of atelectasis within the mid to lower left chest. Troponin was elevated on admission at 1.31, last check was 0.115. She has had no chest pain this admission and is being medically managed. March 07, 2017: Ms. Sommer is seen resting in bed in no acute distress. She is sleeping and does not wake up upon examination. Oxygen is in use via nasal cannula. Her is at bedside and states she had a good night. He says she has not complained of having any chest pain and that her breathing has improved. Vital signs have been stable throughout the night. March 08, 2017: Ms. Sommer is more alert today. She is still not very talkative, but she will nod and answer questions with short answers. She denies any chest pain or shortness of breath. Oxygen is in use via nasal cannula. Her creatinine continues to be elevated at 5.5, but this is improved since admission. I cannot find a good reason as to why her Plavix has been stopped. I will resume it. She is not complaining and is talkative only with repeated verbal stimulus. I think overall from a cardiac standpoint she is reasonably stable. March 09, 2017: Ms. Marks continues to be more alert. This morning she is conversive. She denies any chest pain and states that her breathing is improving. Oxygen is in use via nasal cannula. She dialyzed last night. She is much more alert this morning. Blood pressure is stable and overall I think she is comfortable and doing well from a cardiac standpoint. I have discussed in detail the particulars of this case and I have examined the patient and reviewed the patient's chart both current and old. I was directly involved in the patient's evaluation and management and I completely agree with Yasmin Carlisle RN regarding this patient's evaluation and treatment plan. Exam (Progress Note) - Constitutional Vitals: Period Temp Pulse Resp BP Sys/Sung Pulse Ox Last 24 Hr 96.8 F-98.6 F 81-88 16-20 111-150/53-78 96-100 Exam: General appearance: other (Chronically ill-appearing) - Head Head exam: Absent: abrasion, hematoma - Neck Neck exam: Present: other (Neck brace, soft cervical collar) - Respiratory Respiratory exam: Present: clear to auscultation bilaterally, other (Oxygen via nasal cannula). Absent: accessory muscle use, chest wall tenderness - Cardiovascular Cardiovascular exam: Present: regular rate and rhythm, systolic murmur - GI/Abdominal GI/Abdominal exam: Present: normal bowel sounds, soft. Absent: distended - Extremities Exam Extremities exam: Present: edema (trace to bilateral lower extremities) - Neurological Exam Neurological exam: Present: Awake, alert. - Skin Skin exam: Present: warm, dry Result/EKG - Labs CBC & BMP: 03/09/17 05:48 03/09/17 05:48 Lab Results: I have reviewed the past 24 hour labs Labs: Laboratory Results - last 24 hr 03/08/17 03/08/17 03/08/17 11:49 14:00 14:00 WBC RBC Hgb Hct MCV MCH MCHC RDW Plt Count MPV Neut % (Auto) Lymph % (Auto) [place] % (Auto) Eos % (Auto) Baso % (Auto) Neut # (Auto) Lymph # (Auto) [place] # (Auto) Eos # (Auto) Baso # (Auto) Immature Gran % Nucleated RBC % Immature Gran # Nucleated RBCs # Immature Plt Fraction Sodium Potassium Chloride Carbon Dioxide Anion Gap BUN Creatinine GFR Calculation BUN/Creatinine Ratio Glucose POC Glucose 101 Calculated Osmolality Calcium Magnesium Total Protein 4.6 L Pro Electrophoresis Int Serum Total Protein PEP 4.6 L Albumin (PEP) 2.1 L Albumin (relative) 45.2 Apucf-0-Vkmolizo 0.2 Tevae-3-Rayrdkok rel 5.4 Odhjg-7-Nztgxqks 1.0 Tdgoh-7-Jchseuhm rel 20.9 Cefi-1-Rnslwvyv 0.6 Qrhc-5-Cauadiyl rel 14.2 Gamma Globulins 0.7 Gamma Globulins rel 14.3 03/08/17 03/08/17 03/09/17 15:27 19:44 05:48 WBC 9.2 RBC 2.86 L Hgb 9.8 L Hct 28.5 L MCV 99.7 MCH 34 MCHC 34.4 RDW 15.7 Plt Count 130 MPV 13.1 H Neut % (Auto) 81.2 H Lymph % (Auto) 9.8 L [place] % (Auto) 6.6 Eos % (Auto) 0.9 Baso % (Auto) 0.1 Neut # (Auto) 7.5 H Lymph # (Auto) 0.9 L [place] # (Auto) 0.6 Eos # (Auto) 0.1 Baso # (Auto) 0.0 Immature Gran % 1.4 Nucleated RBC % 0.0 Immature Gran # 0.13 Nucleated RBCs # 0.00 Immature Plt Fraction 0.0 Sodium Potassium Chloride Carbon Dioxide Anion Gap BUN Creatinine GFR Calculation BUN/Creatinine Ratio Glucose POC Glucose 83 125 H Calculated Osmolality Calcium Magnesium Total Protein Pro Electrophoresis Int Serum Total Protein PEP Albumin (PEP) Albumin (relative) Kkwev-6-Jxjjqrtm Bcfch-0-Gpdwjqwu rel Carcn-0-Iguqkgdk Zguev-5-Ivnxbgao rel Cuvh-9-Rqvfwflb Cqjc-2-Nlekehon rel Gamma Globulins Gamma Globulins rel 03/09/17 03/09/17 05:48 07:51 WBC RBC Hgb Hct MCV MCH MCHC RDW Plt Count MPV Neut % (Auto) Lymph % (Auto) [place] % (Auto) Eos % (Auto) Baso % (Auto) Neut # (Auto) Lymph # (Auto) [place] # (Auto) Eos # (Auto) Baso # (Auto) Immature Gran % Nucleated RBC % Immature Gran # Nucleated RBCs # Immature Plt Fraction Sodium 136 Potassium 4.5 Chloride 99 Carbon Dioxide 26 Anion Gap 15.5 H BUN 62 H Creatinine 5.90 H GFR Calculation 7 BUN/Creatinine Ratio 10.00 Glucose 120 H POC Glucose 156 H Calculated Osmolality 290.0 Calcium 8.1 L Magnesium 2.2 Total Protein Pro Electrophoresis Int Serum Total Protein PEP Albumin (PEP) Albumin (relative) Aqnsz-9-Pbhackmj Cymwk-4-Xdoditvw rel Fakor-9-Hgodigfs Ddncq-0-Uqerfmva rel Dtmi-0-Hdubuphc Xdgq-9-Nghzsfje rel Gamma Globulins Gamma Globulins Codey Torres Wesley, MD, personally performed the services described in this documentation, ascribed by Yasmin Carlisle RN in my presence, and it is both accurate and complete .
--- NOTE | 2017-03-09 14:00 | Hospitalist Progress Note ---
Assessment and Plan (1) Generalized muscle weakness Status: Acute Assessment and plan: 1)Mrs Sommer's failure to thrive is due most likely to her cervical disc disease according to Dr Jules. He will finish the NCS and EMG to rule out other inflamatory or peripheral nueropathy or myopathy including myasthenia gravis. I am encouraged that continues to eat today and I told her she can eat anything she wants. She will continue PT and OT. Her mood is improved compared to Tuesday. Continue PD. NSTEMI 5 weeks ago predates this debilitating generalized weakness. Cervical stenosis- did not want surgery after talking to neurosurgeon in [place]. pHTN Monitor her intake and consider PEG or TPN if her appetite fails again. DM- controlled. anemia If her condition cannot be modified (id, if her weakness is due to her cervical stenosis) then her code status and goals of care should be addressed with the patient and family so that they aren't taken by surprise if her health continues to fail. With her current level of function I think she would qualify for hospice if that was a service she wants. Her daughter says she will return to home evne if she requires 24/7 care. 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 She greeted me when I came into the room and answered my questions. She has been eating. She says she is feeling better. Results of EMG NCS pending. She denies shortness of breath or pain. Exam - Constitutional Vitals: Period Temp Pulse Resp BP Sys/Sung Pulse Ox Last 24 Hr 96.8 F-98.6 F 82-88 16-20 111-150/53-78 96-100 General appearance: normal weight, no acute distress - Head Head exam: Present: normocephalic, atraumatic (neck too weak to hold head up for weeks now) - Eye Eye exam: Present: EOMI. Absent: scleral icterus Pupils: Present: RAY - Respiratory Respiratory exam: Present: clear to auscultation bilaterally - Cardiovascular Cardiovascular exam: Present: regular rate and rhythm - GI/Abdominal GI/Abdominal exam: Present: normal bowel sounds, soft. Absent: tenderness - Extremities Exam Extremities exam: Absent: edema - Neurological Exam Neurological exam: Present: alert, oriented X3, motor sensory deficit (general weakness in limbs and neck) Results - Labs CBC & BMP: 03/09/17 05:48 03/09/17 05:48 Lab Results: I have reviewed the past 24 hour labs
--- NOTE | 2017-03-09 14:42 | Nephrology Progress Note ---
Nephrology - PN: Subj Interval history: Ms. Sommer is seen in follow-up of her end-stage renal disease. She is continuing her peritoneal dialysis with nocturnal exchanges which her family is doing appropriately. She is more alert today and interactive. She does not remember anything about my visit yesterday when she was much less responsive. She has some reasonable dean on the right side but virtually none on the left and is able to move her legs some in bed but cannot move them against gravity off the bed. We will continue with nocturnal peritoneal dialysis. Dr. Jules is doing nerve conductions and EMGs and following. Her progressive weakness has been significant and impressive over the last 5 weeks or so. Exam (PN)-Nephrology - Vital Signs Vital signs: Period Temp Pulse Resp BP Sys/Sung Pulse Ox Last 24 Hr 96.8 F-98.6 F 82-88 16-20 111-150/53-78 96-100 - Lab 03/09/17 05:48 03/09/17 05:48 Most recent lab results Calcium 8.1 MG/DL (8.5-10.1) L 03/09/17 05:48 Magnesium 2.2 MG/DL (1.8-2.4) 03/09/17 05:48
[2017-03-09] MEDS: IMMUNE GLOBULIN 10% 20 GM, IMMUNE GLOBULIN 10% 5 GM in PREMIX 1 EACH IV SCH (17:56)
[2017-03-10] MEDS: AMPICILLIN INJ 500 MG in SODIUM CHLORIDE 0.9% 100 ML IV SCH ×4 (03:40→21:52)
[2017-03-10] MEDS: cefTRIAXone 1,000 MG in SODIUM CHLORIDE 0.9% 100 ML IV SCH (05:42)
--- NOTE | 2017-03-10 08:33 | Nephrology Progress Note ---
Nephrology - PN: Subj Interval history: Ms. Sommer is seen in follow-up for end-stage renal disease. She did her peritoneal dialysis last night and removed about 500 cc of volume according to her family. We discussed use of IVIG yesterday with #she had her first dose last night. Plan is to continue that for 3 days and then observe for response. Family did not want to pursue a lumbar puncture and the patient did not either. The IVIG seems the best therapeutic approach to treat a potential inflammatory polyneuropathy. Exam (PN)-Nephrology - Vital Signs Vital signs: Period Temp Pulse Resp BP Sys/Sung Pulse Ox Last 24 Hr 97.2 F-98.8 F 78-94 16-20 111-161/47-97 96-100 - Lab 03/09/17 05:48 03/09/17 05:48 Most recent lab results Calcium 8.1 MG/DL (8.5-10.1) L 03/09/17 05:48 Magnesium 2.2 MG/DL (1.8-2.4) 03/09/17 05:48
[2017-03-10] MEDS: ASPIRIN EC 81 MG TABLET PO SCH (08:53)
[2017-03-10] MEDS: CARVEDILOL 12.5 MG TABLET PO SCH ×2 (08:53→21:52)
[2017-03-10] MEDS: MEGESTROL 400 MG/10 ML UDCUP PO SCH ×2 (08:53→21:52)
[2017-03-10] MEDS: INSULIN LISPRO 100 UNIT/ML SUBCUT SCH ×4 (08:53→21:54)
[2017-03-10] MEDS: BRIMONIDINE 0.15% OPH SOLN 1 DROP/DROPS BOTTLE BOTH EYES SCH ×2 (08:54→21:53)
[2017-03-10] MEDS: ISOSORBIDE DINITRATE 20 MG TABLET PO SCH ×3 (08:54→21:52)
[2017-03-10] MEDS: PANTOPRAZOLE 40 MG TABLET PO SCH (08:54)
[2017-03-10] MEDS: CLOPIDOGREL 75 MG TABLET PO SCH (08:54)
[2017-03-10] MEDS: ALLOPURINOL 300 MG TABLET PO SCH (08:54)
[2017-03-10] MEDS: CALCIUM (CARBONATE)/VITAMIN D 600 MG-400 UNIT TABLET PO SCH (08:54)
--- NOTE | 2017-03-10 12:10 | Cardiology Progress Note ---
Maylin Billy April, RN, am scribing for, and in the presence of, Rm Alegre MD 12:10. Assessment and Plan (1) Dyspnea Status: Acute Current Visit: Yes (2) Atelectasis of both lungs Status: Chronic Current Visit: Yes (3) Ischemic cardiomyopathy Status: Chronic Assessment and plan: Echo done January 16, 2017 with ejection fraction of 25%. Current Visit: Yes (4) Mitral regurgitation Status: Chronic Current Visit: Yes Qualifiers: Cardiac valve disease etiology: nonrheumatic Qualified Code(s): I34.0 - Nonrheumatic mitral (valve) insufficiency (5) Pulmonary hypertension Status: Chronic Current Visit: Yes (6) HTN (hypertension) Status: Chronic Current Visit: No Qualifiers: Hypertension type: essential hypertension Qualified Code(s): I10 - Essential (primary) hypertension Cardiology - PN: Subj Interval history: Telephone Exchange Operator: Dr. Abreu SUMMARY: Ms. Sommer is an 81-year-old female with a history of severe pulmonary hypertension, ischemic cardiomyopathy, and end-stage renal disease on peritoneal dialysis. She is not ambulatory due to the axial skeletal disease and muscular weakness. Echocardiogram done January 16, 2017 with ejection fraction 25% with multiple regional wall motion abnormalities and severe mitral regurgitation, severe tricuspid regurgitation, aortic sclerosis, severe LVH, and pulmonary hypertension with right ventricular systolic pressure estimated be 56 mmHg. Heart catheterization done by Dr. Abreu February 25, 2012 with mild to moderate nonobstructive coronary artery disease. Cardiology was asked to see her because of dyspnea. EKG on admission showed sinus rhythm with heart rate of 70. Chest x-ray showed no acute findings, but did indicate limited inspiration and a band of atelectasis within the mid to lower left chest. Troponin was elevated on admission at 1.31, last check was 0.115. She has had no chest pain this admission and is being medically managed. March 07, 2017: Ms. Sommer is seen resting in bed in no acute distress. She is sleeping and does not wake up upon examination. Oxygen is in use via nasal cannula. Her is at bedside and states she had a good night. He says she has not complained of having any chest pain and that her breathing has improved. Vital signs have been stable throughout the night. March 08, 2017: Ms. Sommer is more alert today. She is still not very talkative, but she will nod and answer questions with short answers. She denies any chest pain or shortness of breath. Oxygen is in use via nasal cannula. Her creatinine continues to be elevated at 5.5, but this is improved since admission. I cannot find a good reason as to why her Plavix has been stopped. I will resume it. She is not complaining and is talkative only with repeated verbal stimulus. I think overall from a cardiac standpoint she is reasonably stable. March 09, 2017: Ms. Sommer continues to be more alert. This morning she is conversive. She denies any chest pain and states that her breathing is improving. Oxygen is in use via nasal cannula. She dialyzed last night. She is much more alert this morning. Blood pressure is stable and overall I think she is comfortable and doing well from a cardiac standpoint. March 10, 2017: Ms. Sommer is seen today while eating breakfast, her is at bedside assisting her. She is awake, alert, and more talkative today. She denies any chest pain or shortness of breath. Oxygen is in use via nasal cannula. She is continuing awake and talkative and interactive which is an improvement over the several days prior to yesterday. She is not having significant problems currently related to chest discomfort or shortness of breath. Our plan will be to continue her current medications. I have discussed in detail the particulars of this case and I have examined the patient and reviewed the patient's chart both current and old. I was directly involved in the patient's evaluation and management and I completely agree with Yasmin Carlisle RN regarding this patient's evaluation and treatment plan. Exam (Progress Note) - Constitutional Vitals: Period Temp Pulse Resp BP Sys/Sung Pulse Ox Last 24 Hr 97.2 F-98.8 F 78-94 16-20 111-161/47-97 96-100 Exam: General appearance: other (Chronically ill-appearing) - Head Head exam: Absent: abrasion, hematoma - Neck Neck exam: Present: other (Neck brace, soft cervical collar) - Respiratory Respiratory exam: Present: clear to auscultation bilaterally, other (Oxygen via nasal cannula). Absent: accessory muscle use, chest wall tenderness - Cardiovascular Cardiovascular exam: Present: regular rate and rhythm, systolic murmur - GI/Abdominal GI/Abdominal exam: Present: normal bowel sounds, soft. Absent: distended - Extremities Exam Extremities exam: Present: edema (trace to bilateral lower extremities) - Neurological Exam Neurological exam: Present: Awake, alert. - Skin Skin exam: Present: warm, dry Result/EKG - Labs CBC & BMP: 03/09/17 05:48 03/09/17 05:48 Labs: Laboratory Results - last 24 hr 03/08/17 03/09/17 03/09/17 14:00 11:32 16:17 POC Glucose 167 H 189 H Pro Electrophoresis Int 03/09/17 03/10/17 19:42 07:00 POC Glucose 222 H 168 H Pro Electrophoresis Int Codey Billy Wesley, MD, personally performed the services described in this documentation, ascribed by Yasmin Carlisle RN in my presence, and it is both accurate and complete .
[2017-03-10] MEDS: DESITIN 4OZ/NYSTATIN 15 GRAM MIXTURE PASTE TOP SCH ×2 (15:35→22:09)
[2017-03-10] MEDS: IMMUNE GLOBULIN 10% 20 GM, IMMUNE GLOBULIN 10% 5 GM in PREMIX 1 EACH IV SCH (16:36)
--- NOTE | 2017-03-10 17:07 | Hospitalist Progress Note ---
Assessment and Plan (1) History of non-ST elevation myocardial infarction (NSTEMI) Status: Chronic Current Visit: No (2) ESRD on peritoneal dialysis Status: Chronic Assessment and plan: Nephrology assisting Current Visit: No (3) Severe concentric left ventricular hypertrophy Status: Chronic Assessment and plan: Cardiology following Current Visit: Yes (4) Cervical disc disease Status: Acute Current Visit: Yes (5) Generalized muscle weakness Status: Acute Assessment and plan: Neurology assisting Day 2 of IVIG PT/OT Current Visit: Yes Hospitalist: Subjective Interval history: No acute events overnight. Patient is without complaints this afternoon. Exam - Constitutional Vitals: Period Temp Pulse Resp BP Sys/Sung Pulse Ox Last 24 Hr 97.4 F-98.8 F 78-94 16-20 115-188/64-97 96-100 General appearance: over weight - Head Head exam: Present: normocephalic, atraumatic - Eye Eye exam: Present: EOMI Pupils: Present: RAY - ENT ENT exam: Present: normal exam - Neck Neck exam: Present: normal inspection - Respiratory Respiratory exam: Present: clear to auscultation bilaterally. Absent: wheezes - Cardiovascular Cardiovascular exam: Present: regular rate and rhythm - GI/Abdominal GI/Abdominal exam: Present: normal bowel sounds, soft. Absent: tenderness, rebound - Extremities Exam Extremities exam: Present: normal inspection - Back Exam Back exam: Present: normal inspection - Neurological Exam Neurological exam: Present: alert, oriented X3 - Psychiatric Psychiatric exam: Present: normal affect, normal mood - Skin Skin exam: Present: warm, intact Results - Labs CBC & BMP: 03/09/17 05:48 03/09/17 05:48
[2017-03-11] MEDS: AMPICILLIN INJ 500 MG in SODIUM CHLORIDE 0.9% 100 ML IV SCH ×3 (03:21→16:25)
[2017-03-11 05:34] LABS: Basophils % 0.1 % (0.0-0.8); Eosinophils # 0.1 10*3/uL (0.0-0.87); Eosinophils % 1.3 % (0.00-10.9); Hematocrit 28.2 VOL% (35.7-47.0); Hemoglobin 9.8 GM/DL (12.0-16.0); Immature Granulocytes Absolute 0.07 #; Lymphocytes # 0.8 10*3/uL (1.4-4.0); Lymphocytes % 11.8 % (21.3-54.2); Mean Corpuscular HGB Conc 34.8 GM/DL (32-36); Mean Corpuscular Hemoglobin 34 PG (27-34); Mean Corpuscular Volume 97.9 FL (87-102); Mean Platelet Volume 12.8 FL (9.6-12.0); Monocytes # 0.6 10*3/uL (0.11-0.8); Monocytes % 8.2 % (1.7-12.7); Neutrophils # 5.5 10*3/uL (1.4-7.4); Neutrophils % 77.6 % (38.7-73.9); Platelet Count 124 T/CUMM (130-400); Red Blood Count 2.88 MC/CUMM (3.8-5.5); Red Cell Distribution Width 15.3 % (9.3-17.3); White Blood Count 7.1 T/CUMM (4-12)
[2017-03-11 06:06] LABS: Calcium 7.8 MG/DL (8.5-10.1); Magnesium 2.1 MG/DL (1.8-2.4); Potassium 4.7 MMOL/L (3.5-5.1)
[2017-03-11] MEDS: cefTRIAXone 1,000 MG in SODIUM CHLORIDE 0.9% 100 ML IV SCH (06:56)
--- NOTE | 2017-03-11 09:04 | Nephrology Progress Note ---
Nephrology - PN: Subj Interval history: Ms. Sommer is seen in follow-up of her end-stage renal disease. Her peritoneal dialysis being done with nocturnal cycler by the family and they are doing a good job. Laboratory reflects her peritoneal dialysis. She is not wearing her neck collar today but is awake and smiling. She is eating marginally. Strength is unchanged. She is received 2 doses of intravenous immunoglobulin. She will have her third and final dose of IVIG today. He will take some time before we know if she has had much of a clinical response to the IVIG. Options for post hospital care are to go home with family members caring for or to swing bed at type facility. After the IVIG infusions are complete I think active treatment would pretty much be concluded. Exam (PN)-Nephrology - Vital Signs Vital signs: Period Temp Pulse Resp BP Sys/Sung Pulse Ox Last 24 Hr 96.6 F-98.3 F 74-82 16-18 128-188/57-87 95-98 - Lab 03/11/17 04:49 03/11/17 04:49 Most recent lab results Calcium 7.8 MG/DL (8.5-10.1) L 03/11/17 04:49 Magnesium 2.1 MG/DL (1.8-2.4) 03/11/17 04:49
[2017-03-11] MEDS: PANTOPRAZOLE 40 MG TABLET PO SCH (10:10)
[2017-03-11] MEDS: CLOPIDOGREL 75 MG TABLET PO SCH (10:10)
[2017-03-11] MEDS: CARVEDILOL 12.5 MG TABLET PO SCH (10:11)
[2017-03-11] MEDS: ALLOPURINOL 300 MG TABLET PO SCH (10:11)
[2017-03-11] MEDS: ASPIRIN EC 81 MG TABLET PO SCH (10:11)
[2017-03-11] MEDS: CALCIUM (CARBONATE)/VITAMIN D 600 MG-400 UNIT TABLET PO SCH (10:11)
[2017-03-11] MEDS: ISOSORBIDE DINITRATE 20 MG TABLET PO SCH ×2 (10:11→16:24)
[2017-03-11] MEDS: DESITIN 4OZ/NYSTATIN 15 GRAM MIXTURE PASTE TOP SCH (10:11)
[2017-03-11] MEDS: MEGESTROL 400 MG/10 ML UDCUP PO SCH (10:11)
[2017-03-11] MEDS: BRIMONIDINE 0.15% OPH SOLN 1 DROP/DROPS BOTTLE BOTH EYES SCH (10:12)
[2017-03-11] MEDS: INSULIN LISPRO 100 UNIT/ML SUBCUT SCH ×3 (10:12→16:20)
--- NOTE | 2017-03-11 10:20 | Cardiology Progress Note ---
Maylin Billy April, RN, am scribing for, and in the presence of, Rm Alegre MD 10:20. Assessment and Plan (1) Dyspnea Status: Acute Assessment and plan: She is not using oxygen today and denies shortness of breath. Current Visit: Yes (2) Atelectasis of both lungs Status: Chronic Current Visit: Yes (3) Ischemic cardiomyopathy Status: Chronic Assessment and plan: Echo done January 16, 2017 with ejection fraction of 25%. Current Visit: Yes (4) Mitral regurgitation Status: Chronic Current Visit: Yes Qualifiers: Cardiac valve disease etiology: nonrheumatic Qualified Code(s): I34.0 - Nonrheumatic mitral (valve) insufficiency (5) Pulmonary hypertension Status: Chronic Current Visit: Yes (6) HTN (hypertension) Status: Chronic Current Visit: No Qualifiers: Hypertension type: essential hypertension Qualified Code(s): I10 - Essential (primary) hypertension Cardiology - PN: Subj Interval history: Land Measurer: Dr. Abreu SUMMARY: Ms. Sommer is an 81-year-old female with a history of severe pulmonary hypertension, ischemic cardiomyopathy, and end-stage renal disease on peritoneal dialysis. She is not ambulatory due to the axial skeletal disease and muscular weakness. Echocardiogram done January 16, 2017 with ejection fraction 25% with multiple regional wall motion abnormalities and severe mitral regurgitation, severe tricuspid regurgitation, aortic sclerosis, severe LVH, and pulmonary hypertension with right ventricular systolic pressure estimated be 56 mmHg. Heart catheterization done by Dr. Abreu February 25, 2012 with mild to moderate nonobstructive coronary artery disease. Cardiology was asked to see her because of dyspnea. EKG on admission showed sinus rhythm with heart rate of 70. Chest x-ray showed no acute findings, but did indicate limited inspiration and a band of atelectasis within the mid to lower left chest. Troponin was elevated on admission at 1.31, last check was 0.115. She has had no chest pain this admission and is being medically managed. March 07, 2017: Ms. Sommer is seen resting in bed in no acute distress. She is sleeping and does not wake up upon examination. Oxygen is in use via nasal cannula. Her is at bedside and states she had a good night. He says she has not complained of having any chest pain and that her breathing has improved. Vital signs have been stable throughout the night. March 08, 2017: Ms. Sommer is more alert today. She is still not very talkative, but she will nod and answer questions with short answers. She denies any chest pain or shortness of breath. Oxygen is in use via nasal cannula. Her creatinine continues to be elevated at 5.5, but this is improved since admission. I cannot find a good reason as to why her Plavix has been stopped. I will resume it. She is not complaining and is talkative only with repeated verbal stimulus. I think overall from a cardiac standpoint she is reasonably stable. March 09, 2017: Ms. Sommer continues to be more alert. This morning she is conversive. She denies any chest pain and states that her breathing is improving. Oxygen is in use via nasal cannula. She dialyzed last night. She is much more alert this morning. Blood pressure is stable and overall I think she is comfortable and doing well from a cardiac standpoint. March 10, 2017: Ms. Sommer is seen today while eating breakfast, her is at bedside assisting her. She is awake, alert, and more talkative today. She denies any chest pain or shortness of breath. Oxygen is in use via nasal cannula. She is continuing awake and talkative and interactive which is an improvement over the several days prior to yesterday. She is not having significant problems currently related to chest discomfort or shortness of breath. Our plan will be to continue her current medications. March 11, 2017: Ms. Sommer continues to be more alert and talkative today. She is smiling and looks brighter today. She denies any chest pain. She is not using oxygen and she denies any shortness of breath. She looks stronger and is more alert today. Hopefully we can try to get her sitting up in the chair and see if we can improve her activity level. I have discussed in detail the particulars of this case and I have examined the patient and reviewed the patient's chart both current and old. I was directly involved in the patient's evaluation and management and I completely agree with Yasmin Carlisle RN regarding this patient's evaluation and treatment plan. Exam (Progress Note) - Constitutional Vitals: Period Temp Pulse Resp BP Sys/Sung Pulse Ox Last 24 Hr 96.6 F-98.3 F 74-82 16-18 128-188/57-87 95-98 Exam: General appearance: other (Chronically ill-appearing) - Head Head exam: Absent: abrasion, hematoma - Neck Neck exam: Present: other (she is not wearing neck brace/cervical collar, today) - Respiratory Respiratory exam: Present: clear to auscultation bilaterally. Absent: accessory muscle use, chest wall tenderness - Cardiovascular Cardiovascular exam: Present: regular rate and rhythm, systolic murmur - GI/Abdominal GI/Abdominal exam: Present: normal bowel sounds, soft. Absent: distended - Extremities Exam Extremities exam: Present: edema (trace to bilateral lower extremities) - Neurological Exam Neurological exam: Present: Awake, alert. - Skin Skin exam: Present: warm, dry Result/EKG - Labs CBC & BMP: 03/11/17 04:49 03/11/17 04:49 Lab Results: I have reviewed the past 24 hour labs Labs: Laboratory Results - last 24 hr 03/10/17 03/10/17 03/10/17 11:34 15:34 20:38 WBC RBC Hgb Hct MCV MCH MCHC RDW Plt Count MPV Neut % (Auto) Lymph % (Auto) [place] % (Auto) Eos % (Auto) Baso % (Auto) Neut # (Auto) Lymph # (Auto) [place] # (Auto) Eos # (Auto) Baso # (Auto) Immature Gran % Nucleated RBC % Immature Gran # Nucleated RBCs # Immature Plt Fraction Sodium Potassium Chloride Carbon Dioxide Anion Gap BUN Creatinine GFR Calculation BUN/Creatinine Ratio Glucose POC Glucose 177 H 138 H 150 H Calculated Osmolality Calcium Magnesium 03/11/17 03/11/17 04:49 04:49 WBC 7.1 RBC 2.88 L Hgb 9.8 L Hct 28.2 L MCV 97.9 MCH 34 MCHC 34.8 RDW 15.3 Plt Count 124 L MPV 12.8 H Neut % (Auto) 77.6 H Lymph % (Auto) 11.8 L [place] % (Auto) 8.2 Eos % (Auto) 1.3 Baso % (Auto) 0.1 Neut # (Auto) 5.5 Lymph # (Auto) 0.8 L [place] # (Auto) 0.6 Eos # (Auto) 0.1 Baso # (Auto) 0.0 Immature Gran % 1.0 Nucleated RBC % 0.0 Immature Gran # 0.07 Nucleated RBCs # 0.00 Immature Plt Fraction 0.0 Sodium 136 Potassium 4.7 Chloride 100 Carbon Dioxide 25 Anion Gap 15.7 H BUN 53 H Creatinine 5.40 H GFR Calculation 8 BUN/Creatinine Ratio 9.00 Glucose 110 H POC Glucose Calculated Osmolality 286.0 Calcium 7.8 L Magnesium 2.1 Codey Billy Wesley, MD, personally performed the services described in this documentation, ascribed by Yasmin Carlisle RN in my presence, and it is both accurate and complete .
--- NOTE | 2017-03-11 13:04 | Discharge Summary ---
Hospital Course - Hospital Course Hospital Course: Patient admitted with acute on chronic chf and weakness. Cardiology was consulted. Nephrology was consulted to manage her ESRD. Neurology was consulted due to diffuse muscle weakness. Dr. Jules has seen her in clinic as well. Nerve conduction study/EMG was unrevealing. It was felt that this was due to her chronic cervical stenosis. She was offered placement at discharge for continuation of physical therapy. Patient and family refused. She has now reached maximal benefit of inpatient stay and will be discharged to home with her family. - Time spent with patient Time with patient DS: Greater than 30 minutes (35) Diagnosis - Discharge Diagnosis (1) History of non-ST elevation myocardial infarction (NSTEMI) Status: Chronic (2) ESRD on peritoneal dialysis Status: Chronic (3) Severe concentric left ventricular hypertrophy Status: Chronic (4) Cervical disc disease Status: Chronic (5) Generalized muscle weakness Status: Chronic Discharge Plan - Discharge Data Disposition: Disch To Home/Self Care Condition at Discharge: Stable Discharge Diet: advance to your usual diet Activity: as per physical therapy Hygiene: no restrictions Weight Bearing at Discharge: weight bear as tolerated Contact your physician if you experience:: Shortness of breath - Discharge Medications New Clopidogrel [Plavix] 75 mg PO DAILY tablet Continue Allopurinol 300 mg PO DAILY Calcium (Carb)/Vit D 600-400 [Caltrate 600 + D] 1 tablet PO DAILY Brimonidine 0.15% Oph Soln [Alphagan P 0.15% Oph Soln] 1 drops BOTH EYES BID Ketorolac Tromethamine [Ketorolac 0.4% Oph Soln] 1 drop LEFT EYE TID hydrALAZINE TAB [Apresoline Tab] 50 mg PO TID #90 tablet Aspirin EC Tab 81 mg PO DAILY NIFEdipine [Nifedipine ER] 90 mg PO DAILY Cyproheptadine Tab [Periactin Tab] 4 mg PO TID #90 tablet Pantoprazole Tab [Protonix Tab] 40 mg PO DAILY #30 tablet Clopidogrel [Plavix] 75 mg PO DAILY Prorenal D 1 tablet PO DAILY Carvedilol [Coreg] 12.5 mg PO BID #60 tablet Isosorbide Dinitrate [Isordil] 20 mg PO TID #90 tablet Discontinued predniSONE TAB [PredniSONE] 20 mg PO BID - Follow Up or Referral - Forms/Instructions Instructions: Urinary Tract Infection in Women (DC), Leukocytosis (DC), Diabetic Hyperglycemia (DC) Exam - Constitutional Vitals: Period Temp Pulse Resp BP Sys/Sung Pulse Ox Last 24 Hr 96.6 F-98.3 F 74-81 16-18 137-188/57-87 94-98 General appearance: normal weight - Head Head exam: Present: normocephalic, atraumatic - Eye Eye exam: Present: EOMI Pupils: Present: RAY - ENT ENT exam: Present: normal exam - Neck Neck exam: Present: normal inspection - Respiratory Respiratory exam: Present: clear to auscultation bilaterally. Absent: rhonchi, wheezes - Cardiovascular Cardiovascular exam: Present: regular rate and rhythm - GI/Abdominal GI/Abdominal exam: Present: normal bowel sounds, soft. Absent: tenderness, rebound - Extremities Exam Extremities exam: Present: other (weakness) - Back Exam Back exam: Present: normal inspection - Neurological Exam Neurological exam: Present: alert, oriented X3 - Psychiatric Psychiatric exam: Present: normal affect, normal mood - Skin Skin exam: Present: warm, intact Discharge Results Procedures and tests throughout hospitalization: Pending Orders 03/08/17 14:00 Myasthenia Gravis (MG) Eval, A Routine Labs on day of discharge: Labs from last 24 hours 03/11/17 03/11/17 03/11/17 07:24 04:49 04:49 WBC 7.1 RBC 2.88 L Hgb 9.8 L Hct 28.2 L MCV 97.9 MCH 34 MCHC 34.8 RDW 15.3 Plt Count 124 L MPV 12.8 H Neut % (Auto) 77.6 H Lymph % (Auto) 11.8 L [place] % (Auto) 8.2 Eos % (Auto) 1.3 Baso % (Auto) 0.1 Neut # (Auto) 5.5 Lymph # (Auto) 0.8 L [place] # (Auto) 0.6 Eos # (Auto) 0.1 Baso # (Auto) 0.0 Immature Gran % 1.0 Nucleated RBC % 0.0 Immature Gran # 0.07 Nucleated RBCs # 0.00 Immature Plt Fraction 0.0 Sodium 136 Potassium 4.7 Chloride 100 Carbon Dioxide 25 Anion Gap 15.7 H BUN 53 H Creatinine 5.40 H GFR Calculation 8 BUN/Creatinine Ratio 9.00 Glucose 110 H POC Glucose 150 H Calculated Osmolality 286.0 Calcium 7.8 L Magnesium 2.1 03/10/17 03/10/17 20:38 15:34 WBC RBC Hgb Hct MCV MCH MCHC RDW Plt Count MPV Neut % (Auto) Lymph % (Auto) [place] % (Auto) Eos % (Auto) Baso % (Auto) Neut # (Auto) Lymph # (Auto) [place] # (Auto) Eos # (Auto) Baso # (Auto) Immature Gran % Nucleated RBC % Immature Gran # Nucleated RBCs # Immature Plt Fraction Sodium Potassium Chloride Carbon Dioxide Anion Gap BUN Creatinine GFR Calculation BUN/Creatinine Ratio Glucose POC Glucose 150 H 138 H Calculated Osmolality Calcium Magnesium DS: Provider Date of admission: 03/05/17 05:55 Primary care physician: Astrid Brito M.D. Attending physician on admission: Edd Ku MD Consults: 03/05/17 05:55 Consult to Physician [CONS] Routine Comment: ESRD on PD Consulting Provider: Reji Lowe Consult to Specialist Group: Nephrology When should Consulting Provider be notified: In am Person Notified: Md caballero Consult Notification Comment: Dr.Hicks caballero Consult to Physician [CONS] Routine Comment: post nstemi elevated troponin Consulting Provider: Jess Torres Consult to Specialist Group: Cardiology When should Consulting Provider be notified: In am Person Notified: Md caballero Consult Notification Comment: Dr Torres aware 03/07/17 11:34 Consult to Physician [CONS] Routine Comment: bulging discs, steroid use Consulting Provider: Ananda Jules Person Notified: Chrissie Date Notified: 03/07/17 Time Notified: 12:43 03/07/17 12:41 Consult to Occupational Therapy [CONS] Routine Reason for Occupational Therapy: Evaluate and Treat Consult to Physical Therapy [CONS] Routine Reason for Physical Therapy: Evaluate and Treat 03/08/17 15:23 Consult to Dietitian [CONS] Routine Reason for Dietitian: Supplements and/or Snacks Consult Comment: family request supplemental milkshake Discharging clinician: Huseyin Hogue MD
[2017-03-11] MEDS: IMMUNE GLOBULIN 10% 20 GM, IMMUNE GLOBULIN 10% 5 GM in PREMIX 1 EACH IV SCH (14:23)
[2017-03-11 17:17] VITALS: BP 150/65
[2017-03-14 15:31] LABS: ACh Receptor (Muscle) Binding 0 nmol/L (<=0.02); ACh Receptor (Muscle) Modulati 0 %; Striational (Striated Muscle) Negative titer (<1:120)
== END 2017-03-11 18:54 | disposition home health service (06) | DRG 291 ==
LOC: N.ED 02:06 → SUATTDRO 05:55 → N.EDINP 05:55 → N.2E 06:20 → N.5E 06:22
PROVIDERS: ADMIT Internal Medicine; ATTEND Internal Medicine